=== PATIENT | male | born 1935 | race Caucasian/White ===

== ENCOUNTER → 2017-03-18 | Outpatient (CLI) | payer MEDICARE, BC ==
[2017-03-18 09:12] LABS: EKG EKG PERFORMED
[2017-03-18 09:54] LABS: CH 28.7; CHCM 31.6; HCT 39.9 % (39.0-53.0); HDW 2.51; HGB 12.4 gm/dL (13.0-17.5); MCH 28.4 pg (25.0-35.0); MCHC 31.1 g/dL (31.0-37.0); MCV 91.3 fL (80.0-100.0); Mean Platelet Volume 7.6; RBC 4.37 m/uL (4.30-5.90); RDW 15.1 % (11.5-15.5); WBC 6.7 k/uL (3.8-10.6)
[2017-03-18 09:58] LABS: Partial Thromboplastin Time 24.2 sec (22.0-30.0); Prothrombin Time 10.6 sec (9.0-12.0)
[2017-03-18 10:01] LABS: Appearance,Urine Clear (Clear); Bilirubin,Urine Negative (Negative); Glucose,Urine (UA) Negative (Negative); Ketones,Urine Negative (Negative); Leukocyte Esterase,Urine Negative (Negative); Mucus,Urine Rare /hpf; Nitrite,Urine Negative (Negative); PH, Urine 5.5 (5.0-8.0); Particle Count 5987; Protein,Urine 2+ (Negative); Specific Gravity,Urine 1.018 (1.001-1.035); Squamous Epithelial Cell,Urine <1 /hpf (0-4); UA Billing (MACRO vs. MICRO) MICRO; WBC,Urine 1 /hpf (0-5)
[2017-03-18 10:20] LABS: ALT 30 U/L (21-72); AST 15 U/L (17-59); Alkaline Phosphatase 70 U/L (38-126); Anion Gap 9 mmol/L; Blood Urea Nitrogen 27 mg/dL (9-20); Calcium 9.2 mg/dL (8.4-10.2); Carbon Dioxide 25 mmol/L (22-30); Chloride 107 mmol/L (98-107); Glucose 95 mg/dL (74-99); Non-African American GFR(MDRD) 38 (>60 ml/min/1.73 sqM); Potassium 4.6 mmol/L (3.5-5.1); Sodium 141 mmol/L (137-145); Total Bilirubin 0.5 mg/dL (0.2-1.3); Total Protein 6.8 g/dL (6.3-8.2)
== END | disposition home or self-care (01) ==
LOC: LABPAT 08:49
PROVIDERS: ATTEND Orthopaedic Surgery
DX: Z01.810 Encounter for preprocedural cardiovascular examination (principal); R94.31 Abnormal electrocardiogram [ECG] [EKG]; Z79.01 Long term (current) use of anticoagulants; Z01.812 Encounter for preprocedural laboratory examination
CPT/HCPCS: 36415; 80053; 81001; 85027; 85610; 85730; 87070; 93005

== ENCOUNTER → 2017-07-03 | Outpatient (CLI) | payer MEDICARE, BC ==
--- NOTE | 2017-07-03 11:25 | MR ---
EXAMINATION TYPE: MR angio neck wo/w con DATE OF EXAM: 07/03/2017 COMPARISON: CT angiogram neck dated 11/30/2015 HISTORY: Occlusion and stenosis of left carotid artery CONTRAST: Standard multiplanar, multisequence MRI departmental protocol utilizing 10 mL intravenous Gadavist ga dolinium contrast. FINDINGS: Great vessels are patent proximally. Within the right common carotid artery proximal to the aortic bulb there is focal stenosis of approximately 50% measuring over 8 mm in length likely due to calcific atheromatous plaquing. The right carotid bulb is patent. External carotid artery also appea rs patent. There is also focal stenosis of the right internal carotid artery with a eccentric plaque narrowing the caliber approximately 60% just distal to the carotid bulb extending over 6 mm in length . The remainder of the right internal carotid artery is patent and unremarkable without hemodynamical ly significant stenosis. The left common carotid artery is unremarkable. The left carotid bulb is also within normal limits. T here is redemonstration of a focal area of stenosis of the left internal carotid artery just distal t o the carotid bifurcation with luminal narrowing of approximately 70-75%, increased from the prior CT A with visual diameter stenosis just over 50% and computer analysis of 65 at that time. This extends over a short segment length of approximately 3 mm. No other focal areas of hemodynamically significan t stenosis are seen within the left internal carotid artery. Vertebral arteries are patent with left vertebral artery dominance. No focal appearance of aneurysmal outpouching is seen within any of the visualized vascular structures. No evidence of occlusion. IMPRESSION: 1. Progression in stenosis of the left internal carotid artery just distal to the bifurcation in suleman torres to the prior exam of 11/30/2015 now approximately 70-75% and previously 50-65%. This is a for a short segment of approximately 3 mm. 2. Stenosis of the right common carotid artery just proximal to the carotid bulb of approximately 50% measuring 8 mm in length. 3. Additional short segment of the right internal carotid artery just distal to the carotid bulb of a pproximately 60% extending over 6 mm in length.
== END | disposition home or self-care (01) ==
LOC: RADMRIMAIN 09:23
PROVIDERS: ATTEND Thoracic Surgery (Cardiothoracic Vascular Surgery)
DX: I65.23 Occlusion and stenosis of bilateral carotid arteries (principal)
CPT/HCPCS: 82565; 70549; A9581

== ENCOUNTER → 2017-07-21 | Outpatient (CLI) | payer MEDICARE, BC ==
[2017-07-21 14:23] LABS: Potassium 4.3 mmol/L (3.5-5.1)
[2017-07-21 14:30] LABS: Basophils # (A) 0.1 k/uL (0-0.2); Basophils % (A) 1 %; Eosinophils # (A) 0.4 k/uL (0-0.7); Eosinophils % (A) 5 %; HCT 37.9 % (39.0-53.0); HGB 12.8 gm/dL (13.0-17.5); Lymphocytes # (A) 1.5 k/uL (1.0-4.8); Lymphocytes % (A) 23 %; MCH 28.6 pg (25.0-35.0); MCHC 33.7 g/dL (31.0-37.0); MCV 84.8 fL (80.0-100.0); Mean Platelet Volume 6.8; Monocytes # (A) 0.4 k/uL (0-1.0); Monocytes % (A) 5 %; Neutrophils # (A) 4.2 k/uL (1.3-7.7); Neutrophils % (A) 64 %; Platelet Count 305 k/uL (150-450); RBC 4.48 m/uL (4.30-5.90); WBC 6.6 k/uL (3.8-10.6)
[2017-07-21 14:35] LABS: Partial Thromboplastin Time 23.8 sec (22.0-30.0); Prothrombin Time 9.9 sec (9.0-12.0)
[2017-07-21 15:08] LABS: Amorphous Sediment,Urine Rare /hpf; Appearance,Urine Clear (Clear); Bilirubin,Urine Negative (Negative); Blood,Urine Negative (Negative); Color,Urine Light Yellow; Glucose,Urine (UA) Trace (Negative); Hyaline Casts,Urine 9 /lpf (0-2); Ketones,Urine Negative (Negative); Leukocyte Esterase,Urine Negative (Negative); Mucus,Urine Rare /hpf; Nitrite,Urine Negative (Negative); Protein,Urine 1+ (Negative); RBC,Urine <1 /hpf (0-5); Specific Gravity,Urine 1.012 (1.001-1.035); Squamous Epithelial Cell,Urine <1 /hpf (0-4); Urobilinogen,Urine <2.0 mg/dL (<2.0)
== END | disposition home or self-care (01) ==
LOC: LABPAT 13:49
PROVIDERS: ATTEND Surgery
DX: Z01.812 Encounter for preprocedural laboratory examination (principal); I65.22 Occlusion and stenosis of left carotid artery
CPT/HCPCS: 80051; 81001; 82565; 82947; 84520; 85025; 85610; 85730; 86850; 86900; 86901

== ENCOUNTER 2017-07-28 07:45 | Inpatient (IN) | payer MEDICARE, BC ==
[2017-07-23 13:24] VITALS: BMI 29.4
[~2017-07-28 07:45] MED LIST: DEXAMETHASONE SOD PHOSPHATE 10 MG/ML 1 ML VIAL IV ONE; LACTATED RINGERS 1,000 ML IV SCH; MIDAZOLAM 2 MG/2 ML VIAL IV PRN; NITROGLYCERIN-D5W PMX 50 MG in DEXTROSE/WATER 1 250ML.BAG IV ONE; ONDANSETRON 4 MG/2 ML VIAL IVP ONE; PHENYLEPHRINE 40 MG in SODIUM CHLORIDE 0.9% 250 ML IV ONE; ceFAZolin IN SWFI 2 GM/20 ML SYRINGE IVP ONE; fentaNYL (PF) 50 MCG/ML 2 ML AMP IV PRN
[2017-07-28] MEDS ORDERED: LIDOCAINE 1% 20 ML VIAL (10MG/ML) FOR IV START INTRADERMA ONE (08:30)
[2017-07-28 08:32] LABS: Glucose,Whole Blood 115 mg/dL (75-99)
[2017-07-28] MEDS ORDERED: PHENYLEPHRINE-0.9% NACL SYG 1 MG/10 ML SYRINGE ONE (11:09)
[2017-07-28] MEDS ORDERED: fentaNYL (PF) 50 MCG/ML 2 ML AMP ONE (11:09)
[2017-07-28] MEDS ORDERED: HEPARIN SODIUM,PORCINE 10,000 UNIT/ML 1 ML VIAL ONE (11:09)
[2017-07-28] MEDS ORDERED: PROTAMINE SULFATE 10 MG/ML 5 ML VIAL IV ONE (11:09)
[2017-07-28] MEDS ORDERED: ROCURONIUM BROMIDE 10 MG/ML 10 ML VIAL IV ONE (11:09)
[2017-07-28] MEDS ORDERED: NEOSTIGMINE 1 MG/ML 10 ML VIAL ONE (11:09)
[2017-07-28] MEDS ORDERED: PROPOFOL 10 MG/ML 20 ML VIAL IV ONE (11:09)
[2017-07-28] MEDS ORDERED: SUCCINYLCHOLINE CHLORIDE 100 MG/5 ML SYR IV ONE (11:09)
[2017-07-28] MEDS ORDERED: GLYCOPYRROLATE 0.2 MG/ML 2 ML VIAL ONE (11:09)
[2017-07-28] MEDS ORDERED: ePHEDrine SULFATE/0.9% NACL/PF 50 MG/5 ML SYRINGE IV ONE (11:09)
[2017-07-28] MEDS ORDERED: MIDAZOLAM 2 MG/2 ML VIAL ONE (11:09)
--- NOTE | 2017-07-28 11:12 | P.HPIHPCON ---
History of Present Illness H&P Date: 07/28/17 Chief Complaint: Left carotid stenosis 81-year-old gentleman who presented to my office with left internal carotid artery stenosis greater than 80%. He underwent MRI which demonstrated significant stenosis 75-80%. He has no complaints of lateralizing symptoms such as weakness, vision changes or speech issues. He has had a right carotid endarterectomy in the past. We discussed possible options of open carotid endarterectomy versus TCAR procedure and stenting which he decided for the open endarterectomy. He presents today for elective repair. He denies any fevers, chills, chest pain or shortness of breath. Consent for Procedure: I have explained the operation/procedure to the patient, including the risks, benefits, side effects, alternative therapies (including not receiving the proposed treatment or service), the likelihood of the patient achieving his/her goals, and potential recuperation problems for the procedure/sedation/analgesia , as well as any blood products, if indicated. I also explained to the patient the risks, benefits and side effects of the alternatives, as well as the risks related to not receiving the proposed procedure, care, treatment, or services. - Constitutional Constitutional: Reports as per HPI - EENT Eyes: denies blurred vision, denies decreased vision Ears, nose, mouth and throat: Denies dental pain, Denies dysphagia, Denies headache, Denies hoarseness - Cardiovascular Cardiovascular: Denies chest pain, Denies dyspnea on exertion - Respiratory Respiratory: Denies congestion, Denies cough with sputum, Denies dyspnea - Gastrointestinal Gastrointestinal: Denies abdominal pain - Musculoskeletal Musculoskeletal: Denies arm numbness/tingling, Denies gait dysfunction - Integumentary Integumentary: Denies pruritus, Denies rash - Neurological Neurological: Denies aphasia, Denies ataxia, Denies double vision, Denies numbness, Denies paralysis, Denies weakness - Endocrine Endocrine: Denies cold intolerance, Denies excessive thirst - Hematologic/Lymphatic Hematologic/Lymphatic: Denies easy bleeding, Denies easy bruising Past Medical History Past Medical History: Diabetes Mellitus, GERD/Reflux, Hyperlipidemia, Hypertension, Osteoarthritis (OA), Thyroid Disorder, Vascular Disorder Additional Past Medical History / Comment(s): HX OF ESOPHAGEAL STRICTURE WITH DILATION, NIDDM, PVD, colitis, blockage to lt carotid History of Any Multi-Drug Resistant Organisms: None Reported Past Surgical History: Hernia Repair, Joint Replacement Additional Past Surgical History / Comment(s): Lap bebeto fundoplasty, TUMOR RIGHT LUNG REMOVED, RIGHT CAROTID ENDARTERECTOMY, gastric surgery for rupture ( pt does not know what ruptured), EGD, colonoscopy, CATARACTS., trk 04/07/17 Past Anesthesia/Blood Transfusion Reactions: No Reported Reaction, Motion Sickness Smoking Status: Former smoker - Past Family History Brother(s) Family Medical History: Diabetes Mellitus Sister(s) Family Medical History: Cancer Mother Family Medical History: Congestive Heart Failure (CHF), Coronary Artery Disease (CAD) Additional Family Medical History / Comment(s): Mother of CHF at age 83 yrs. Father Family Medical History: Myocardial Infarction (MT) Additional Family Medical History / Comment(s): Father of MT at age 60 yrs Medications and Allergies Home Medications Medication Instructions Recorded Confirmed Type Aspirin 81 mg PO HS 12/15/14 07/23/17 History Levothyroxine Sodium [Synthroid] 50 mcg PO DAILY 12/15/14 07/23/17 History Verapamil HCl [Verapamil ER] 240 mg PO DAILY 12/15/14 07/23/17 History glipiZIDE [Glucotrol] 10 mg PO AC-BRKFST 12/15/14 07/23/17 History metFORMIN HCL 1,000 mg PO BID 12/15/14 07/23/17 History Losartan Potassium [Cozaar] 100 mg PO DAILY 04/02/17 07/23/17 History Atorvastatin [Lipitor] 20 mg PO HS 07/23/17 07/23/17 History Allergies Allergy/AdvReac Type Severity Reaction Status Date / Time Iodinated Contrast- Oral and Allergy Mild Rash/Hives Verified 07/28/17 08:13 IV Dye [Iodinated Contrast Media - IV Dye] Surgical - Exam Vital Signs Temp Pulse Resp BP Pulse Ox 98 F 74 16 178/75 95 07/28/17 08:16 07/28/17 08:16 07/28/17 08:16 07/28/17 08:16 07/28/17 08:16 - General well developed, well nourished, no distress - Eyes PERRL, normal ocular movement - Neck no masses, trachea midline - Respiratory normal expansion, normal respiratory effort - Cardiovascular Rhythm: regular - Abdomen Abdomen: soft, non tender - Integumentary no rash - Neurologic normal coordination, normal sensation - Psychiatric oriented to time, oriented to person, oriented to place Results - Labs Abnormal Lab Results - Last 24 Hours (Table) 07/28/17 Range/Units 08:23 POC Glucose (mg/dL) 115 H (75-99) mg/dL Assessment and Plan (1) Carotid stenosis, left Current Visit: Yes Status: Acute Priority: High Code(s): I65.22 - OCCLUSION AND STENOSIS OF LEFT CAROTID ARTERY SNOMED Code(s): 545223383786023 Plan: To the OR for left carotid endarterectomy Time with Patient: Less than 30
[2017-07-28] MEDS ORDERED: LACTATED RINGERS 1,000 ML IV ONE (11:40)
[2017-07-28] MEDS ORDERED: GELATIN SPONGE,ABSORB (LARGE) 1 EACH SPONGE TOPICAL ONE (11:48)
[2017-07-28] MEDS ORDERED: THROMBIN (BOVINE) 5,000 UNIT VIAL TOPICAL ONE (11:49)
[2017-07-28] MEDS ORDERED: HYDROcodone/APAP 5-325MG 1 EACH TAB PO PRN (13:41)
[2017-07-28] MEDS ORDERED: ACETAMINOPHEN TAB 325 MG TAB PO PRN (13:41)
[2017-07-28] MEDS ORDERED: BENZOCAINE/MENTHOL LOZENG 1 EACH LOZENGE MUCOUS MEM PRN (13:41)
[2017-07-28] MEDS ORDERED: MORPHINE SULF 5MG/10ML VL IVP PRN (13:41)
[2017-07-28] MEDS ORDERED: TEMAZEPAM 15 MG CAP PO PRN (13:41)
[2017-07-28] MEDS ORDERED: TRIMETHOBENZAMIDE 100 MG/ML 2 ML VIAL IM PRN (13:41)
[2017-07-28] MEDS ORDERED: MAG HYDROX/AL HYDROX/SIMETH 30 ML CUP PO PRN (13:41)
[2017-07-28 14:29] LABS: Glucose,Whole Blood 100 mg/dL (75-99)
[2017-07-28 15:05] LABS: Glucose,Whole Blood 96 mg/dL (75-99)
[2017-07-28 15:25] LABS: Basophils % (A) 1 %; Eosinophils # (A) 0.3 k/uL (0-0.7); Eosinophils % (A) 3 %; HCT 31.5 % (39.0-53.0); HGB 10.2 gm/dL (13.0-17.5); Lymphocytes # (A) 1.5 k/uL (1.0-4.8); Lymphocytes % (A) 19 %; MCH 27.6 pg (25.0-35.0); MCHC 32.5 g/dL (31.0-37.0); Mean Platelet Volume 6.9; Monocytes # (A) 0.3 k/uL (0-1.0); Monocytes % (A) 4 %; Neutrophils # (A) 5.7 k/uL (1.3-7.7); Neutrophils % (A) 72 %; Platelet Count 259 k/uL (150-450); RBC 3.71 m/uL (4.30-5.90); RDW 14.2 % (11.5-15.5)
[2017-07-28] MEDS: LACTATED RINGERS 1,000 ML IV SCH (16:09)
[2017-07-28 17:26] LABS: Glucose,Whole Blood 88 mg/dL (75-99)
[2017-07-28 20:12] LABS: Glucose,Whole Blood 131 mg/dL (75-99)
[2017-07-28] MEDS: ASPIRIN 81 MG PO SCH (20:42)
[2017-07-28] MEDS: HEPARIN SODIUM,PORCINE 5,000 UNIT/ML 1 ML VIAL SQ SCH (20:42)
[2017-07-28] MEDS: ATORVASTATIN 20 MG TAB PO SCH (20:42)
[2017-07-29 04:43] LABS: Calcium 8.3 mg/dL (8.4-10.2); Potassium 4.8 mmol/L (3.5-5.1)
[2017-07-29 04:54] LABS: HCT 29.7 % (39.0-53.0); HGB 9.6 gm/dL (13.0-17.5); MCH 27.5 pg (25.0-35.0); MCHC 32.3 g/dL (31.0-37.0); MCV 85.3 fL (80.0-100.0); Mean Platelet Volume 7.2; Platelet Count 229 k/uL (150-450); RBC 3.49 m/uL (4.30-5.90); RDW 14.6 % (11.5-15.5); WBC 7.7 k/uL (3.8-10.6)
--- NOTE | 2017-07-29 06:28 | P.OP ---
Date of Procedure: 07/28/17 Preoperative Diagnosis: Asymptomatic Left internal carotid artery stenosis Postoperative Diagnosis: Same Procedure(s) Performed: Left carotid endarterectomy with patch angioplasty Implants: bovine pericardial patch Anesthesia: XU Surgeon: Tao Newell Estimated Blood Loss (ml): 100 Urine output (ml): 300 Pathology: other (carotid plaque) Condition: stable Disposition: ICU Indications for Procedure: 81 year-old male who presented to the office with increased left internal carotid artery stenosis on ultrasound measuring approximatley >80%. He denies any lateralizing symptoms such as weakness, speech issues or vision changes. He underwent a neck MRA which demonstrated 75% stenosis of the left ICA. He presents today for elective carotid endarterectomy. Operative Findings: high bifurcation with dense focal plaque just past the bifurcation extending into the internal carotid artery. Description of Procedure: After written and informed consent the patient was brought to the operative suite and laid in a beach chair position. The area of his left neck and chest was prepped and draped in the usual sterile fashion after appropriate anesthetic was administered per anesthesia. Time out was performed in normal fashion with all parties in agreement. Antibiotics were given prior to an incision. An oblique incision was created just anterior to the SCM and dissection was carried down through the platysma to the carotid sheath. Upon dissection the facial vein was encountered and suture ligated in usual fashion. The common, internal and external carotid arteries were dissected in a circumferential manner and controlled with vessel loops. The bifurcation was noted to be high as well as the vagus nerve was overlying the carotid artery. Meticulous dissection was carried around the nerve and the nerve was mobilized away from the artery to allow for better visualization of the artery. The internal carotid artery was tortuous and dove deep making dissection of the distal aspect challenging. Once dissection was completed the patient was administered heparin and followed with serial ACTs for appropriate dosing. The common, internal and external carotid arteries were then clamped and arteriotomy with 11 -blade scalpel was performed and extended with Sal-Hernandez scissors. The plaque was dense at the bifurcation with a posterior tongue of plaque extending to the internal carotid artery. Back bleeding was assesed and stump pressures were >80 mmHg and therefore a shunt was not used. Endarterectomy was then performed in usual fashion with eversion of the external carotid plaque and feathered endpoint. The artery was then irrigated with heparinized saline and all free debris was removed. The distal plaque was tacked with 7-0 prolene suture and patch angioplasty was performed with 6-0 prolene in a running fashion with a bovine pericardial patch. Prior to the last sutures being placed control was released from the internal carotid demonstrating brisk backbleeding. This was reclamped and forward flushing from the common carotid was performed. Final suture was secured and the external carotid was released to allow any free debris to be flushed into the external system. The internal carotid was then released. The flow was assessed with doppler demonstrating good multiphasic flow in the internal carotid artery. A pulse was also felt distal to the patch. The area was copiously irrigated with antibiotic solution. A 10-F drain was placed and secured with nylon suture. The incision was then closed in a multilayer fashion. The skin was cleansed and dressings placed. The patient was awoken in the operating room and was moving all extremities to command. He was extubated and sent to the PACU for recovery.
[2017-07-29] MEDS: LACTATED RINGERS 1,000 ML IV SCH (06:31)
[2017-07-29] MEDS: LEVOTHYROXINE 50 MCG TAB PO SCH (06:31)
[2017-07-29 07:02] LABS: Glucose,Whole Blood 128 mg/dL (75-99)
[2017-07-29] MEDS: glipiZIDE 10 MG TAB PO SCH (08:04)
[2017-07-29] MEDS: HEPARIN SODIUM,PORCINE 5,000 UNIT/ML 1 ML VIAL SQ SCH ×2 (08:04→20:24)
--- NOTE | 2017-07-29 10:28 | P.PN ---
Subjective Progress Note Date: 07/29/17 Principal diagnosis: Left carotid stenosis. Previous medical history of right carotid endarterectomy , diabetes, hyperlipidemia, hypertension, hypothyroid, previous tobacco dependence. POD #1 left carotid endarterectomy. Patient is currently sitting up in the chair in no acute distress eating breakfast. Denies pain. Arterial line and Rogel catheter discontinued this morning. MICHAEL drain discontinued. Objective - Vital Signs Vital signs: Vital Signs Temp 97.8 F 07/29/17 08:00 Pulse 63 07/29/17 09:00 Resp 18 07/29/17 09:00 BP 97/39 07/29/17 09:00 Pulse Ox 96 07/29/17 09:00 Intake & Output 07/28/17 07/29/17 07/29/17 18:59 06:59 18:59 Intake Total 1980 1040 Output Total 565 395 Balance 1415 645 Weight 98.7 kg 100.7 kg Intake: IV 1740 1040 Lactated Ringers 1,000 ml 240 1040 @ 80 mls/hr IV .[id number] DONNIE Rx#:[id number] Oral 240 Output: Drainage 30 Left Neck 30 Urine 465 365 Estimated Blood Loss 100 Other: Voiding Method Indwelling Catheter Indwelling Catheter Urinal ABP, PAP, CO, CI - Last Documented Arterial Blood Pressure 116/36 - Constitutional General appearance: Present: cooperative, no acute distress, obese - Respiratory Details: Lungs sounds clear bilaterally. Respirations even, nonlabored. Currently on room air with oxygen saturation 94%. - Cardiovascular Details: S1, S2 present. Regular rate and rhythm, sinus rhythm on telemetry. Palpable peripheral pulses bilaterally. No edema present. No calf pain or tenderness noted. SCDs present. - Gastrointestinal Gastrointestinal Comment(s): Abdomen soft, nontender, nondistended. Active bowel sounds 4 quadrants. Tolerating diet. - Genitourinary Genitourinary Comment(s): Rogel discontinue this morning. Due to void. - Integumentary Integumentary Comment(s): Skin is warm and dry with evidence of good perfusion. Left neck incision well approximated. Dressing applied once MICHAEL was removed. - Neurologic Neurologic: Present: CNII-XII intact - Musculoskeletal Musculoskeletal: Present: gait normal, strength equal bilaterally - Psychiatric Psychiatric: Present: A&O x's 3, appropriate affect, intact judgment & insight - Allied health notes Allied health notes reviewed: nursing - Labs CBC & Chem 7: 07/29/17 04:15 07/29/17 04:15 Labs: Abnormal Lab Results - Last 24 Hours (Table) 07/28/17 07/28/17 07/28/17 Range/Units 14:27 15:18 20:10 RBC 3.71 L (4.30-5.90) m/uL Hgb 10.2 L (13.0-17.5) gm/dL Hct 31.5 L (39.0-53.0) % BUN (9-20) mg/dL Creatinine (0.66-1.25) mg/dL Glucose (74-99) mg/dL POC Glucose (mg/dL) 100 H 131 H (75-99) mg/dL Calcium (8.4-10.2) mg/dL 07/29/17 07/29/17 07/29/17 Range/Units 04:15 04:15 07:00 RBC 3.49 L (4.30-5.90) m/uL Hgb 9.6 L (13.0-17.5) gm/dL Hct 29.7 L (39.0-53.0) % BUN 30 H (9-20) mg/dL Creatinine 1.80 H (0.66-1.25) mg/dL Glucose 124 H (74-99) mg/dL POC Glucose (mg/dL) 128 H (75-99) mg/dL Calcium 8.3 L (8.4-10.2) mg/dL Assessment and Plan (1) Hyperlipidemia Current Visit: Yes Status: Chronic Code(s): E78.5 - HYPERLIPIDEMIA, UNSPECIFIED SNOMED Code(s): 60539341 (2) History of hypertension Current Visit: Yes Status: Chronic Code(s): Z86.79 - PERSONAL HISTORY OF OTHER DISEASES OF THE CIRCULATORY SYSTEM SNOMED Code(s): 424684561 (3) History of right-sided carotid endarterectomy Current Visit: No Status: Resolved Code(s): Z98.890 - OTHER SPECIFIED POSTPROCEDURAL STATES SNOMED Code(s): 721825329 (4) Carotid stenosis, left Current Visit: Yes Status: Chronic Priority: High Code(s): I65.22 - OCCLUSION AND STENOSIS OF LEFT CAROTID ARTERY SNOMED Code(s): 833293504161676 (5) Diabetes Current Visit: Yes Status: Chronic Code(s): E11.9 - TYPE 2 DIABETES MELLITUS WITHOUT COMPLICATIONS SNOMED Code(s): 52335135 Plan: The patient's vital signs are stable, he is tolerating oral intake, pain is well -controlled, and he is ambulating in the room. He is due to void. His incision is well approximated and the MICHAEL drain has been removed. He likely will be discharged later on today on his home medication. Follow-up appointments will be scheduled. Time with Patient: Greater than 30
[2017-07-29] MEDS: LOSARTAN 50 MG TAB PO SCH (10:37)
[2017-07-29] MEDS: VERAPAMIL SR 240 MG TABLET.ER PO SCH (10:38)
[2017-07-29 12:21] LABS: Glucose,Whole Blood 172 mg/dL (75-99)
--- NOTE | 2017-07-29 16:42 | CONS ---
CONSULTATION CHIEF COMPLAINT: Carotid occlusive disease. HISTORY OF PRESENT ILLNESS: This is another admission for this 81-year-old white male who has ASCVD, coronary artery disease, hypertension and diabetes. He is in for an elective left carotid endarterectomy. REVIEW OF SYSTEMS: He has had no recent amaurosis fugax, neurologic deficits, chest pain, shortness of breath, cough, hemoptysis, abdominal pain, nausea, vomiting, melena, hematochezia, jaundice, etc. Past medical history, family history, and personal and social histories are all otherwise unremarkable and unchanged from his recent admitting discharge summary. ALLERGIES: TONO INHIBITORS. MEDICATIONS: 1. Atorvastatin 20 mg. 2. Losartan 100 mg. 3. Levothyroxine 0.05 mg. 4. Aspirin 81 mg. 5. Glipizide 10 mg once a day. 6. Verapamil 240 once a day. 7. Metformin 1 gram twice a day. He does not smoke or drink. The remainder of his history is unremarkable. . PHYSICAL EXAMINATION: Blood pressure 130/62 with a pulse 76, respirations of 18, and he is afebrile. In general he appeared to be well developed, well nourished, in no acute no acute distress. Skin color is normal. Skin is warm and dry. The lymph nodes are not enlarged. Head, ears, eyes, nose, mouth and throat are normal. Neck veins are not distended. Thyroid is not enlarged. Chest is clear. Cardiac exam is normal. Abdomen is soft, nontender. Extremities are normal. Neurologically he is intact. IMPRESSION: 1. Left carotid occlusive disease. 2. ASCVD. 3. Hypertension. 4. Type 2 [id number] diabetes mellitus. RECOMMENDATIONS: None. He is cleared for surgery. MMODL / IJN: [id number] /
[2017-07-29 17:19] LABS: Glucose,Whole Blood 93 mg/dL (75-99)
[2017-07-29] MEDS: ATORVASTATIN 20 MG TAB PO SCH (20:24)
[2017-07-29] MEDS: ASPIRIN 81 MG PO SCH (20:24)
[2017-07-29 20:28] LABS: Glucose,Whole Blood 167 mg/dL (75-99)
[2017-07-30 06:58] VITALS: TEMP 98.4
[2017-07-30 07:13] LABS: Glucose,Whole Blood 99 mg/dL (75-99)
[2017-07-30] MEDS: HEPARIN SODIUM,PORCINE 5,000 UNIT/ML 1 ML VIAL SQ SCH (08:21)
[2017-07-30] MEDS: LOSARTAN 50 MG TAB PO SCH (08:21)
[2017-07-30] MEDS: glipiZIDE 10 MG TAB PO SCH (08:21)
[2017-07-30] MEDS: VERAPAMIL SR 240 MG TABLET.ER PO SCH (08:21)
[2017-07-30] MEDS: LEVOTHYROXINE 50 MCG TAB PO SCH (08:21)
--- NOTE | 2017-07-30 09:30 | P.PN ---
Subjective Progress Note Date: 07/30/17 Principal diagnosis: Left carotid stenosis. Previous medical history of right carotid endarterectomy , diabetes, hyperlipidemia, hypertension, hypothyroid, previous tobacco dependence. POD #2 left carotid endarterectomy with patch angioplasty. Objective - Vital Signs Vital signs: Vital Signs Temp 98.4 F 07/30/17 08:00 Pulse 66 07/30/17 08:00 Resp 23 07/30/17 08:00 BP 133/59 07/30/17 08:00 Pulse Ox 98 07/30/17 08:00 Intake & Output 07/29/17 07/30/17 07/30/17 18:59 06:59 18:59 Intake Total 240 Output Total 150 450 Balance -150 -210 Weight 99 kg Intake: IV 0 Lactated Ringers 1,000 ml 0 @ 80 mls/hr IV .[id number] DONNIE Rx#:[id number] Oral 240 Output: Urine 150 450 Other: Voiding Method Urinal Urinal ABP, PAP, CO, CI - Last Documented Arterial Blood Pressure 116/36 - Constitutional General appearance: Present: cooperative, no acute distress, obese - EENT ENT: Present: hearing grossly normal - Neck Details: Neck is supple, no JVD, no lymphadenopathy. Left neck incision clean and dry and approximated. No drainage or redness present. - Respiratory Details: Lung sounds essentially clear throughout. Respirations are symmetrical and nonlabored. Oxygen saturation are 98% on room air. - Cardiovascular Details: Regular rhythm and rate. S1 and S2 present, negative for S3, gallop or murmur. Bedside telemetry showing normal sinus rhythm with occasional PACs heart rate 71. No edema present. Knee-high sequential compression devices in place to his bilateral lower extremities. - Gastrointestinal Gastrointestinal Comment(s): Abdomen is soft, nontender and nondistended. Active bowel sounds all 4 abdominal quadrants. Tolerating oral intake. Passing flatus. - Genitourinary Genitourinary Comment(s): Adequate urine output. Clear ray urine. - Integumentary Integumentary Comment(s): Skin is warm and dry. No clubbing or cyanosis present. Left neck incision clean dry and well approximated. No drainage or redness present. - Neurologic Neurologic: Present: CNII-XII intact - Musculoskeletal Musculoskeletal: Present: gait normal, strength equal bilaterally - Psychiatric Psychiatric: Present: A&O x's 3, appropriate affect, intact judgment & insight - Allied health notes Allied health notes reviewed: nursing - Labs CBC & Chem 7: 07/29/17 04:15 07/29/17 04:15 Labs: Abnormal Lab Results - Last 24 Hours (Table) 07/29/17 07/29/17 Range/Units 12:19 20:25 POC Glucose (mg/dL) 172 H 167 H (75-99) mg/dL Assessment and Plan (1) Hypothyroid Current Visit: Yes Status: Acute Code(s): E03.9 - HYPOTHYROIDISM, UNSPECIFIED SNOMED Code(s): 95661460 (2) Carotid stenosis, left Current Visit: Yes Status: Chronic Priority: High Code(s): I65.22 - OCCLUSION AND STENOSIS OF LEFT CAROTID ARTERY SNOMED Code(s): 991227398294032 (3) Diabetes Current Visit: Yes Status: Chronic Code(s): E11.9 - TYPE 2 DIABETES MELLITUS WITHOUT COMPLICATIONS SNOMED Code(s): 03631442 (4) History of hypertension Current Visit: Yes Status: Chronic Code(s): Z86.79 - PERSONAL HISTORY OF OTHER DISEASES OF THE CIRCULATORY SYSTEM SNOMED Code(s): 101254542 (5) Hyperlipidemia Current Visit: Yes Status: Chronic Code(s): E78.5 - HYPERLIPIDEMIA, UNSPECIFIED SNOMED Code(s): 09571059 (6) History of right-sided carotid endarterectomy Current Visit: No Status: Resolved Code(s): Z98.890 - OTHER SPECIFIED POSTPROCEDURAL STATES SNOMED Code(s): 796645631 Plan: 1. Pain control per when necessary orders. 2. Increase activity as tolerated, out of bed for all meals. 3. Continue home medications as scheduled. 4. More recommendations to follow as patient progresses in his care. Anticipate discharge home within the next 24 hours. Time with Patient: Greater than 30
[2017-07-30 11:46] LABS: Glucose,Whole Blood 101 mg/dL (75-99)
[2017-07-30 11:53] VITALS: BP 118/62; PULSE 62; RESP 22
--- NOTE | 2017-07-30 14:07 | PN ---
PROGRESS NOTE CHIEF COMPLAINT: Carotid occlusive disease. HISTORY OF PRESENT ILLNESS: This gentleman is doing fine. He has no headaches, neurologic problems, change in vision, weakness on either side, etc. PHYSICAL EXAM: Neurologically, he is intact. Chest is clear. Cardiac exam is normal. Abdomen is soft, nontender. Dressing is dry. IMPRESSION: Status post carotid endarterectomy. PLAN: Probably home today. MMODL / IJN: [id number] /
--- NOTE | 2017-08-01 07:57 | P.DS ---
Providers Date of admission: 07/28/17 07:45 Expected date of discharge: 07/30/17 Attending physician: Tao Newell DO Consults: 07/28/17 13:41 Consult Physician Routine Consulting Provider: Matthieu Daugherty Consult Reason/Comments: surgical management Do you want consulting provider notified?: Already Contacted 07/28/17 20:26 Consult Physician Routine Consulting Provider: Michael Oneil Consult Reason/Comments: medical management Do you want consulting provider notified?: Yes Primary care physician: Michael Oneil - Discharge Diagnosis(es) (1) Carotid stenosis, left Status: Chronic Priority: High Hospital Course: 81 year old male who presented with left carotid artery stenosis went for an elective left carotid endarterectomy without incident and was admitted to the ICU for continued monitoring. He did develop some episodes of hypotension over the next 24 hours which were treated with fluids and ultimately resolved. He was tolerating a diet, pain was well controlled, he was ambulating and was stable for discharge by all parties on 07/30 at which time he was discharged home. Procedures: left carotid endarterectomy with patch Patient Condition at Discharge: Good Plan - Discharge Summary Discharge Rx Participant: No New Discharge Prescriptions: New Acetaminophen Tab [Tylenol] 650 mg PO Q4HR PRN tab PRN Reason: Mild Pain Continue Aspirin 81 mg PO HS metFORMIN HCL 1,000 mg PO BID glipiZIDE [Glucotrol] 10 mg PO AC-BRKFST Verapamil HCl [Verapamil ER] 240 mg PO DAILY Levothyroxine Sodium [Synthroid] 50 mcg PO DAILY Losartan Potassium [Cozaar] 100 mg PO DAILY Atorvastatin [Lipitor] 20 mg PO HS Discharge Medication List Aspirin 81 mg PO HS 12/15/14 [History] Levothyroxine Sodium [Synthroid] 50 mcg PO DAILY 12/15/14 [History] Verapamil HCl [Verapamil ER] 240 mg PO DAILY 12/15/14 [History] glipiZIDE [Glucotrol] 10 mg PO AC-BRKFST 12/15/14 [History] metFORMIN HCL 1,000 mg PO BID 12/15/14 [History] Losartan Potassium [Cozaar] 100 mg PO DAILY 04/02/17 [History] Atorvastatin [Lipitor] 20 mg PO HS 07/23/17 [History] Acetaminophen Tab [Tylenol] 650 mg PO Q4HR PRN tab 07/30/17 [Rx] Follow up Appointment(s)/Referral(s): Michael Oneil MD [Primary Care Provider] - 1 Week Tao Newell DO [STAFF PHYSICIAN] - 08/04/17 1:15 pm Patient Instructions/Handouts: Carotid Endarterectomy (DC) Discharge Disposition: HOME SELF-CARE
--- NOTE | 2017-08-07 10:11 | CDI ---
Last Revision, March 2017 Documentation Clarification Form Date: 08/07/17 From: Janine Ardon Admit Date: 07/28/2017 7:45:00 AM Patient Name: Saud Farley Visit Number: [id number] Discharge Date: 07/30/17 ATTENTION: The Clinical Documentation Specialists (CDI) and [facility] Coding Staff appreciate your assistance in clarifying documentation. Please respond to the clarification below the line at the bottom and electronically sign. The CDI & [facility] Coding staff will review the response and follow-up if needed. Please note: Queries are made part of the Legal Health Record. If you have any questions, please contact the author of this message via ITS. Dr. Tao Newell Hypotension is documented in the post op notes. Clinical Indicators: developed some episodes of hypotension over the next 24 hours which were treated with fluids and ultimately resolved Treatment: given 300ml bolus fluids and hypotension resolved In your professional opinion, can you please specify the etiology of the hypotension if known? Hypotension Chronic Hypotension Postoperative Hypotension Hypotension due to anesthia Other Condition, please specify Unable to determine Temporary Postoperative hypotension due to severe carotid stenosis treatment MTDD
== END 2017-07-30 13:43 | disposition home or self-care (01) | DRG 39 ==
LOC: 2ORMAIN 07:45 → 6ICU 13:48
PROVIDERS: ADMIT Surgery; ATTEND Surgery
PROC: 03CL0ZZ Extirpation of Matter from Left Internal Carotid Artery, Open Approach (ICD-10-PCS; principal; 2017-07-29)
PROC: 03UL0KZ Supplement Left Internal Carotid Artery with Nonautologous Tissue Substitute, Open Approach (ICD-10-PCS; 2017-07-29)
DX: I65.22 Occlusion and stenosis of left carotid artery (principal); E11.51 Type 2 diabetes mellitus with diabetic peripheral angiopathy without gangrene; E03.9 Hypothyroidism, unspecified; K21.9 Gastro-esophageal reflux disease without esophagitis; E78.5 Hyperlipidemia, unspecified; M19.90 Unspecified osteoarthritis, unspecified site; I95.81 Postprocedural hypotension; E66.9 Obesity, unspecified; I10 Essential (primary) hypertension; I25.10 Atherosclerotic heart disease of native coronary artery without angina pectoris; Z96.651 Presence of right artificial knee joint; Z98.49 Cataract extraction status, unspecified eye; Z87.891 Personal history of nicotine dependence; Z87.19 Personal history of other diseases of the digestive system; Z83.3 Family history of diabetes mellitus; Z82.49 Family history of ischemic heart disease and other diseases of the circulatory system; Z79.82 Long term (current) use of aspirin; Z79.899 Other long term (current) drug therapy; Z79.84 Long term (current) use of oral hypoglycemic drugs; Z91.041 Radiographic dye allergy status; Z88.8 Allergy status to other drugs, medicaments and biological substances; Z79.890 Hormone replacement therapy; Z68.31 Body mass index [BMI] 31.0-31.9, adult
CPT/HCPCS: 80048; 85025; 85027; 88304; 88311

== ENCOUNTER → 2018-01-19 | Outpatient (CLI) | payer MEDICARE, BC ==
[2018-01-19 12:17] LABS: Appearance,Urine Clear (Clear); Bilirubin,Urine Negative (Negative); Blood,Urine Negative (Negative); Color,Urine Yellow; Glucose,Urine (UA) Negative (Negative); Ketones,Urine Negative (Negative); Leukocyte Esterase,Urine Negative (Negative); Mucus,Urine Rare /hpf; Nitrite,Urine Negative (Negative); Protein,Urine 2+ (Negative); Specific Gravity,Urine 1.019 (1.001-1.035); Urobilinogen,Urine <2.0 mg/dL (<2.0); WBC,Urine 1 /hpf (0-5)
[2018-01-19 12:23] LABS: HCT 38.2 % (39.0-53.0); HGB 12.5 gm/dL (13.0-17.5); MCH 28.8 pg (25.0-35.0); MCHC 32.7 g/dL (31.0-37.0); MCV 88.2 fL (80.0-100.0); Mean Platelet Volume 7.1; Platelet Count 244 k/uL (150-450); RBC 4.33 m/uL (4.30-5.90); WBC 6.4 k/uL (3.8-10.6)
[2018-01-19 12:33] LABS: Partial Thromboplastin Time 23.6 sec (22.0-30.0); Prothrombin Time 10.2 sec (9.0-12.0)
[2018-01-19 12:55] LABS: Albumin 3.7 g/dL (3.5-5.0); Calcium 9.1 mg/dL (8.4-10.2); Potassium 5.2 mmol/L (3.5-5.1); Total Bilirubin 0.6 mg/dL (0.2-1.3); Total Protein 6.8 g/dL (6.3-8.2)
== END | disposition home or self-care (01) ==
LOC: LABPAT 10:54
PROVIDERS: ATTEND Orthopaedic Surgery
DX: Z01.812 Encounter for preprocedural laboratory examination (principal); Z79.01 Long term (current) use of anticoagulants
CPT/HCPCS: 36415; 80053; 81001; 85027; 85610; 85730; 87070

== ENCOUNTER 2018-02-08 05:55 | Inpatient (IN) | payer MEDICARE, BC ==
[2018-01-29 12:01] VITALS: BMI 29.4
[~2018-02-08 05:55] MED LIST changes: +ACETAMINOPHEN TAB 500 MG TAB PO ONE; -DEXAMETHASONE SOD PHOSPHATE 10 MG/ML 1 ML VIAL IV ONE; -LACTATED RINGERS 1,000 ML IV SCH; +MELOXICAM 7.5 MG TAB PO ONE; -MIDAZOLAM 2 MG/2 ML VIAL IV PRN; -NITROGLYCERIN-D5W PMX 50 MG in DEXTROSE/WATER 1 250ML.BAG IV ONE; -ONDANSETRON 4 MG/2 ML VIAL IVP ONE; -PHENYLEPHRINE 40 MG in SODIUM CHLORIDE 0.9% 250 ML IV ONE; +TRANEXAMIC ACID 1,000 MG in SODIUM CHLORIDE 0.9% 50 ML IVPB ONE; -fentaNYL (PF) 50 MCG/ML 2 ML AMP IV PRN
[2018-02-08] MEDS ORDERED: ROPIVACAINE 246.25 MG, EPINEPHrine 0.5 MG, KETOROLAC 30 MG, cloNIDine HCL/PF 80 MCG, WA... MISCELLANE ONE ×5 (06:10)
[2018-02-08] MEDS ORDERED: LIDOCAINE 1% 20 ML VIAL (10MG/ML) FOR IV START INTRADERMA PRN (06:10)
[2018-02-08] MEDS ORDERED: ONDANSETRON 4 MG/2 ML VIAL IVP ONE (06:10)
[2018-02-08] MEDS ORDERED: HYDROmorphone 0.5 MG/0.5 ML SYRINGE IVP PRN (06:10)
[2018-02-08] MEDS: LACTATED RINGERS 1,000 ML IV SCH (06:35)
[2018-02-08] MEDS ORDERED: MIDAZOLAM 2 MG/2 ML VIAL IV ONE (06:53)
[2018-02-08 06:54] LABS: Glucose,Whole Blood 98 mg/dL (75-99)
[2018-02-08] MEDS ORDERED: DEXAMETHASONE SOD PHOSPHATE 10 MG/ML 1 ML VIAL IV ONE (07:10)
[2018-02-08] MEDS ORDERED: BISACODYL 10 MG SUPP RECTAL PRN (07:15)
[2018-02-08] MEDS ORDERED: NA PHOS,M-B/NA PHOS,DI-BA 133 ML ENEMA RECTAL PRN (07:15)
[2018-02-08] MEDS ORDERED: MAGNESIUM HYDROXIDE 2,400 MG/10 ML CUP PO PRN (07:15)
[2018-02-08] MEDS ORDERED: NALOXONE 0.4 MG/ML 1 ML VIAL IV PRN (07:15)
[2018-02-08] MEDS ORDERED: ONDANSETRON 4 MG/2 ML VIAL IVP PRN (07:15)
[2018-02-08] MEDS ORDERED: HYDROcodone/APAP 5-325MG 1 EACH TAB PO PRN ×2 (07:15)
[2018-02-08] MEDS ORDERED: DIAZEPAM 5 MG TAB PO PRN (07:15)
[2018-02-08] MEDS ORDERED: HYDROmorphone 1 MG/ML 1 ML SYRINGE IVP PRN ×3 (07:15)
[2018-02-08] MEDS ORDERED: MIDAZOLAM 2 MG/2 ML VIAL ONE ×2 (07:25→15:14)
[2018-02-08] MEDS ORDERED: SODIUM CHLORIDE 0.9% 100 ML BAG ONE ×2 (07:25→15:14)
[2018-02-08] MEDS ORDERED: TRANEXAMIC ACID 1,000 MG/10 ML VIAL ONE ×2 (07:25→15:14)
[2018-02-08] MEDS ORDERED: ceFAZolin 3,000 MG in SODIUM CHLORIDE 0.9% IRRIGATIO 3,000 ML IRRIGATION ONE (07:55)
--- NOTE | 2018-02-08 08:54 | P.OP ---
Date of Procedure: 02/08/18 Preoperative Diagnosis: Severe osteoarthritis left knee Postoperative Diagnosis: Severe osteoarthritis left knee Procedure(s) Performed: Left total knee arthroplasty Implants: Hernandez and Nephew Oxinium femoral component size 6, left Hernandez & Nephew Haily II left nonporous tibial baseplate size 6 Hernandez & Nephew size 11 mm Legion XLPE high flexion articular insert, size 5-6 Hernandez & Nephew Haily II resurfacing patellar component, 35 mm All components were cemented using Carolyn bone cement.. The articulation is Oxinium on polyethylene. Anesthesia: spinal Surgeon: Deni Ramirez Music Therapy Specialist #1: Archana Siddiqui Estimated Blood Loss (ml): 25 Pathology: other (Bone and cartilage) Condition: stable Disposition: PACU Indications for Procedure: After failure of conservative treatment we discussed the surgical and nonsurgical treatment options at length. Patient wishes to proceed with a total knee arthroplasty. Complications specific to this procedure were discussed at length, including but not limited to infection, bleeding, stiffness , and nerve injury. Patient is aware of all these complications and informed consent was obtained Operative Findings: The operative findings are consistent with severe osteoarthritis of the left knee Description of Procedure: Patient was seen in the preoperative area consent was reviewed and operative site was marked with a skin marker. An adductor canal pain catheter was placed by anesthesia in the preoperative area. Patient was then brought to the operating room and given preoperative antibiotics intravenously. A spinal anesthetic was administered by the anesthesia department. A tourniquet was placed on the upper thigh and the lower extremity was prepped and draped in usual sterile fashion. A gram of transexamic acid was given. A universal timeout was then performed which confirmed the patient's name, surgical site, ALLERGIES, and consent. The lower extremity was then exsanguinated and tourniquet was inflated to 250 mmHg. A standard and anterior midline approach to the knee was performed. The skin and subcutaneous tissue was dissected down to the patellar tendon. A medial parapatellar arthrotomy was then performed. The knee was then extended, the patellar was everted, and the knee was again flexed. Anterior horns of both menisci were excised, and a release was performed to the posterior medial aspect of the knee. On gross visual inspection, there was complete loss of articular cartilage in the medial and patellofemoral joint spaces. There was also significant cartilage damage in the lateral compartment. There were multiple periarticular osteophytes which were then removed with a Ronguer. The femoral canal was then opened with the appropriate drill, and the intramedullary femoral cutting guide was then placed and set for 4 of valgus. The distal femoral cutting block was then pinned in place, and the distal femur was then cut. The cutting block was then removed and the cut was checked for flatness. Next, the sizing guide was then placed and set for 3 external rotation based off of the epicondylar axis and Whitesides line. After the femur was sized, the appropriate 4-in-1 cutting block was then pinned in place. The anterior condyles were cut without notching. The posterior and chamfer cuts were performed while protecting the collateral ligaments. The cutting block was then removed, and the femoral canal was plugged with autologous bone. Attention was then directed to the tibia. The remaining ACL was removed with a Ronguer, and the tibia was then gently subluxed forward with a large bent knee retractor. Any remaining menisci was excised. The posterior lateral corner was cauterized in order to cauterize the lateral geniculate artery. The extra medullary tibial cutting guide was then placed, set for the appropriate rotation , slope, and depth of resection. The proximal tibia cutting guide was then pinned in place. Proximal tibia was then cut and sized. Next trials were then placed with the appropriate-sized insert. The knee was able to fully extend and flex to 130 and was stable throughout all range of motion. The knee was then extended, patella everted. Patella was then measured, and then using an osteotomy guide, the patella was cut at the appropriate level. The patella was then measured and drilled and the patella trial was then placed. The knee was then taken through range of motion with the patella trial and the patella tracked normally. The knee was then extended patella trial was then removed and the patella was everted. Knee was then flexed and lug holes were drilled through the femoral trial and the femoral trial was then removed. The tibial was then exposed, and the tibial broach guide was then pinned in place after it was set for the appropriate rotation to allow for the most coverage without overhang. The tibia was then reamed and broached. The cut surfaces of bone were then irrigated with pulsatile lavage. The posterior structures were injected with the ropivacaine solution. The knee was also irrigated with Irrisept solution. The components were then opened, the cement was mixed, and the components were then cemented in place. The cement was allowed to harden with the knee in full extension. While the cement was hardening, the remaining soft tissues were then injected with a ropivacaine solution, which consisted of 246.25 mg of ropivacaine, 0.5 mg of epinephrine, 30 mg of Toradol, 80 g of clonidine, and 48.45 mL of sterile water, for a total of 100 mL of fluid injected. After the cemented hardened. The tourniquet was released, and hemostasis was obtained. A second gram of transexamic acid was given. The knee was again irrigated. The knee was again taken through range of motion and found to be stable throughout all range of motion of 0-130 , and the patella tracked normally. The fascia was then closed with #2 strata fix suture. The subcutaneous tissue was closed with 3-0 Vicryl and 3-0 strata fix. Dermabond glue was used for the skin and placed with the knee in flexion. The patient was placed in a sterile silver dressing. Patient was then transferred to recovery room in stable condition. The assistant import manager LAURA Dang was required due the complexity surgery and the need for a skilled surgical coordinator. She assisted in positioning, draping, retraction, and closure of the wound.
--- NOTE | 2018-02-08 09:35 | P.ONQ ---
Anesthesiology Proc Note - PNB - Peripheral Nerve Block Performed Left Adductor Canal Infusion Time Out Performed: Yes Procedure Start Time: 06:54 Procedure Stop Time: 07:05 Indication: Acute Post-Operative Pain, Requested by physician Sedation Type: Sedate with meaningful contact maintained Preparation: Sterile Dressing Position: Supine Catheter: Indwelling Needle Types: On-Q Needle Size: 50mm (2") Needle Gauge: 21 Technique: Ultrasound (ropi .5% 20cc) Blood Aspirated: No Pain Paresthesia on Injection Noted: No Resistance on Injection: Normal Events: Uneventful and Well Tolerated
[2018-02-08 09:48] LABS: Glucose,Whole Blood 105 mg/dL (75-99)
--- NOTE | 2018-02-08 09:50 | XR ---
Limited left knee HISTORY: Status post left knee arthroplasty 2 views of the left knee No comparisons Patient is status post left knee arthroplasty. There is anatomic alignment. Lucency in the soft tissu es is compatible with postop state. Basilar calcifications noted incidentally. IMPRESSION: Orthopedic follow-up.
[2018-02-08] MEDS ORDERED: ROPIVACAINE 1,100 MG, SODIUM CHLORIDE 0.9% 500 ML 330 ML MISCELLANE PRN ×2 (11:00)
[2018-02-08] MEDS ORDERED: PHENYLEPHRINE-0.9% NACL SYG 1 MG/10 ML SYRINGE ONE (15:14)
[2018-02-08] MEDS ORDERED: ePHEDrine SULFATE/0.9% NACL/PF 50 MG/5 ML SYRINGE IV ONE (15:14)
[2018-02-08] MEDS ORDERED: PROPOFOL 10 MG/ML 20 ML VIAL IV ONE (15:14)
[2018-02-08] MEDS ORDERED: fentaNYL (PF) 50 MCG/ML 2 ML AMP ONE (15:14)
[2018-02-08] MEDS: ceFAZolin IN SWFI 2 GM/20 ML SYRINGE IVP SCH (16:14)
[2018-02-08] MEDS: SODIUM CHLORIDE 0.9% 1,000 ML IV SCH ×2 (16:18→22:44)
[2018-02-08] MEDS: LEVOTHYROXINE 50 MCG TAB PO SCH ×2 (16:18→22:24)
[2018-02-08 17:08] LABS: Calcium 8.5 mg/dL (8.4-10.2); Potassium 4.9 mmol/L (3.5-5.1)
[2018-02-08 17:11] LABS: Glucose,Whole Blood 418 mg/dL (75-99)
[2018-02-08 17:14] LABS: Glucose,Whole Blood 397 mg/dL (75-99)
--- NOTE | 2018-02-08 17:15 | P.CONS ---
History of Present Illness - Reason for Consult Recommendations regarding diabetic medications - History of Present Illness Patient is a very pleasant 82-year-old gentleman admitted for elective left knee arthroplasty successfully underwent surgery did pass gas did not move his bowels yet. Patient is a diabetic is on metformin and glipizide from his previous labs it appears like patient has chronic kidney disease stage III with creatinine baseline around 1.7 because of which I repeated a basic metabolic profile his creatinine is around that patient will not be a candidate for metformin which will be discontinued will hold off glipizide as well patient will be started on sliding scale insulin for now. She denied any fever chills nausea vomiting abdominal pain. Review of Systems REVIEW OF SYSTEMS: CONSTITUTIONAL: No fever, no malaise, no fatigue. HEENT: No recent visual problems or hearing problems. Denied any sore throat. CARDIOVASCULAR: No chest pain, orthopnea, PND, no palpitations, no syncope. PULMONARY: No shortness of breath, no cough, no hemoptysis. GASTROINTESTINAL: No diarrhea, no nausea, no vomiting, no abdominal pain. Normoactive bowel sounds. NEUROLOGICAL: No headaches, no weakness, no numbness. HEMATOLOGICAL: Denies any bleeding or petechiae. GENITOURINARY: Denies any burning micturition, frequency, or urgency. MUSCULOSKELETAL/RHEUMATOLOGICAL: Denies any joint pain, swelling, or any muscle pain. ENDOCRINE: Denies any polyuria or polydipsia. The rest of the 14-point review of systems is negative. Past Medical History Past Medical History: Diabetes Mellitus, GERD/Reflux, Hyperlipidemia, Hypertension, Osteoarthritis (OA), Thyroid Disorder, Vascular Disorder Additional Past Medical History / Comment(s): HX OF ESOPHAGEAL STRICTURE WITH DILATION, NIDDM, PVD, colitis, blockage to lt carotid History of Any Multi-Drug Resistant Organisms: None Reported Past Surgical History: Hernia Repair, Joint Replacement Additional Past Surgical History / Comment(s): Lap bebeto fundoplasty, TUMOR RIGHT LUNG REMOVED, RIGHT CAROTID ENDARTERECTOMY, gastric surgery for rupture ( pt does not know what ruptured), EGD, colonoscopy, CATARACTS., trk 04/07/17 Past Anesthesia/Blood Transfusion Reactions: No Reported Reaction, Motion Sickness Smoking Status: Former smoker - Past Family History Brother(s) Family Medical History: Diabetes Mellitus Sister(s) Family Medical History: Cancer Mother Family Medical History: Congestive Heart Failure (CHF), Coronary Artery Disease (CAD) Additional Family Medical History / Comment(s): Mother of CHF at age 83 yrs. Father Family Medical History: Myocardial Infarction (GA) Additional Family Medical History / Comment(s): Father of GA at age 60 yrs Medications and Allergies Home Medications Medication Instructions Recorded Confirmed Type Aspirin 81 mg PO HS 12/15/14 02/08/18 History Levothyroxine Sodium [Synthroid] 50 mcg PO QAM 12/15/14 02/08/18 History Verapamil HCl [Verapamil ER] 240 mg PO QAM 12/15/14 02/08/18 History glipiZIDE [Glucotrol] 10 mg PO AC-BRKFST 12/15/14 02/08/18 History metFORMIN HCL 1,000 mg PO HS 12/15/14 02/08/18 History Atorvastatin [Lipitor] 20 mg PO HS 07/23/17 02/08/18 History Allergies Allergy/AdvReac Type Severity Reaction Status Date / Time Iodinated Contrast- Oral and Allergy Mild Rash/Hives Verified 02/08/18 14:53 IV Dye [Iodinated Contrast Media - IV Dye] Physical Exam Vitals: Vital Signs Temp Pulse Pulse Resp BP Pulse Ox 02/08/18 14:51 97.6 F 72 16 142/64 94 L 02/08/18 14:38 97.6 F 72 16 142/64 94 L 02/08/18 14:00 69 16 139/69 97 02/08/18 13:00 70 16 140/70 97 02/08/18 12:30 70 16 144/75 95 02/08/18 12:00 63 16 136/65 95 02/08/18 11:30 61 16 111/65 95 02/08/18 11:00 60 16 136/64 96 02/08/18 10:30 64 16 119/59 98 02/08/18 10:15 59 L 16 119/54 98 02/08/18 10:00 60 16 114/54 98 02/08/18 09:45 59 L 16 124/59 98 02/08/18 09:30 57 L 16 123/59 98 02/08/18 09:15 96.8 F L 63 16 140/63 97 02/08/18 07:10 68 16 99 02/08/18 06:45 170/68 02/08/18 06:35 98.0 F 71 16 179/81 94 L Intake and Output 02/08/18 02/08/18 02/08/18 06:59 14:59 22:59 Intake Total 200 901 Output Total 25 Balance 200 876 Intake: IV 200 901 Output: Estimated Blood Loss 25 Other: Weight 92.986 kg PHYSICAL EXAMINATION: GENERAL: The patient is alert and oriented x3, not in any acute distress. Well developed, well nourished. HEENT: Pupils are round and equally reacting to light. EOMI. No scleral icterus. No conjunctival pallor. Normocephalic, atraumatic. No pharyngeal erythema. No thyromegaly. CARDIOVASCULAR: S1 and S2 present. No murmurs, rubs, or gallops. PULMONARY: Chest is clear to auscultation, no wheezing or crackles. ABDOMEN: Soft, nontender, nondistended, normoactive bowel sounds. No palpable organomegaly. MUSCULOSKELETAL: Deferred to orthopedic surgery EXTREMITIES: No cyanosis, clubbing, or pedal edema. NEUROLOGICAL: Gross neurological examination did not reveal any focal deficits. SKIN: No rashes. Results CBC & Chem 7: 02/08/18 16:45 Labs: Abnormal Lab Results - Last 24 Hours (Table) 02/08/18 02/08/18 Range/Units 09:45 16:45 BUN 30 H (9-20) mg/dL Creatinine 1.69 H (0.66-1.25) mg/dL Glucose 377 H (74-99) mg/dL POC Glucose (mg/dL) 105 H (75-99) mg/dL Assessment and Plan Plan: -Left knee arthroplasty postoperative day 0: Due to prophylaxis as per primary service, avoid opiates, benzodiazepines barbiturates and anticholinergic medications considering his age which leads to toxic encephalopathy confusion and altered mental status. 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
[2018-02-08] MEDS: INSULIN ASPART 100 UNIT/ML 1 ML 10 ML VIAL SQ SCH ×2 (18:26→22:40)
[2018-02-08 20:33] LABS: Glucose,Whole Blood 393 mg/dL (75-99)
[2018-02-08] MEDS ORDERED: ATORVASTATIN 20 MG TAB PO SCH (21:00)
[2018-02-08] MEDS ORDERED: SENNOSIDES-DOCUSATE SODIUM 1 EACH TAB PO SCH (21:00)
[2018-02-08 22:34] LABS: Glucose,Whole Blood 285 mg/dL (75-99)
[2018-02-08] MEDS: ASPIRIN 325 MG TAB PO SCH (22:35)
[2018-02-09] MEDS: ceFAZolin IN SWFI 2 GM/20 ML SYRINGE IVP SCH (00:52)
[2018-02-09 02:19] VITALS: RESP 16; TEMP 97.7
[2018-02-09] MEDS: LACTATED RINGERS 1,000 ML IV SCH (05:33)
--- NOTE | 2018-02-09 07:22 | P.PN ---
Progress Note - Text Progress Note Date: 02/09/18 The patient is doing well status post total knee replacement. Pain is well controlled by a combination of local anesthetic infusion through the adductor canal catheter and oral analgesics. There are no signs of infection around the catheter skin entry site. The local anesthetic infusion will be continued as per protocol.
[2018-02-09 07:40] LABS: Glucose,Whole Blood 215 mg/dL (75-99)
[2018-02-09] MEDS ORDERED: VERAPAMIL SR 240 MG TABLET.ER PO SCH (09:00)
[2018-02-09] MEDS ORDERED: MELOXICAM 7.5 MG TAB PO SCH (09:00)
[2018-02-09] MEDS: INSULIN ASPART 100 UNIT/ML 1 ML 10 ML VIAL SQ SCH ×2 (09:14→13:20)
[2018-02-09] MEDS: LEVOTHYROXINE 50 MCG TAB PO SCH (09:15)
[2018-02-09] MEDS: ASPIRIN 325 MG TAB PO SCH (09:15)
--- NOTE | 2018-02-09 09:32 | P.DS ---
Providers Date of admission: 02/08/18 05:55 Expected date of discharge: 02/09/18 Attending physician: Deni Ramirez Consults: 02/08/18 07:15 Consult Physician Routine Consulting Provider: Michael Oneil Consult Reason/Comments: medical management Do you want consulting provider notified?: Yes Primary care physician: Michael Oneil - Discharge Diagnosis(es) (1) Primary osteoarthritis of left knee Current Visit: Yes Status: Acute (2) S/P total knee arthroplasty Current Visit: No Status: Acute Hospital Course: This is a 82-year-old male with known history of degenerative arthritis of the left knee. The patient presents for evaluation. After discussion and consideration patient elects to proceed with total knee arthroplasty. The patient is seen preoperatively by Dr. Ramirez and medically cleared for surgery by their primary care physician. Patient is admitted to [facility] on 02/08/2018 for total knee arthroplasty. The procedures performed without complication or sequelae. The patient is doing well postoperatively. Labs and vital signs are stable on day of discharge. On day of discharge patient's knee incision is healing well. There is minimal erythema. There is no drainage noted at this time. There is minimal soft tissue swelling to the knee. Patient has full foot and ankle motion without difficulty or pain. Neurovascular status to the left lower extremity is intact. Patient is discharged home in good condition. Please see med rec for accurate list of home medications. Plan - Discharge Summary Discharge Rx Participant: No New Discharge Prescriptions: New Aspirin 325 mg PO BID #60 tab HYDROcodone/APAP 5-325MG [[place] 5-325] 1 - 2 tab PO Q4-6H PRN #84 tab PRN Reason: Pain Sennosides [Senokot] 1 tab PO BID #60 tablet No Action Aspirin 81 mg PO HS metFORMIN HCL 1,000 mg PO HS glipiZIDE [Glucotrol] 10 mg PO AC-BRKFST Verapamil HCl [Verapamil ER] 240 mg PO QAM Levothyroxine Sodium [Synthroid] 50 mcg PO QAM Atorvastatin [Lipitor] 20 mg PO HS Discharge Medication List Aspirin 81 mg PO HS 12/15/14 [History] Levothyroxine Sodium [Synthroid] 50 mcg PO QAM 12/15/14 [History] Verapamil HCl [Verapamil ER] 240 mg PO QAM 12/15/14 [History] glipiZIDE [Glucotrol] 10 mg PO AC-BRKFST 12/15/14 [History] metFORMIN HCL 1,000 mg PO HS 12/15/14 [History] Atorvastatin [Lipitor] 20 mg PO HS 07/23/17 [History] Aspirin 325 mg PO BID #60 tab 02/09/18 [Rx] HYDROcodone/APAP 5-325MG [[place] 5-325] 1 - 2 tab PO Q4-6H PRN #84 tab 02/09/18 [ Rx] Sennosides [Senokot] 1 tab PO BID #60 tablet 02/09/18 [Rx] Follow up Appointment(s)/Referral(s): Deni Ramirez DO [Doctor of Osteopathic Medicine] - 2 Weeks Ambulatory/Diagnostic Orders: Continuous Passive Motion (CPM) Machine [DME.AMB1] Time Frame: 3 Weeks, Location : None Selected Activity/Diet/Wound Care/Special Instructions: Weightbearing as tolerated with a walker CPM 5-6h daily Leave dressing intact. May be removed by home care nurse in 10 days. May shower with dressing on. Please call [facility] with any questions or concerns,
[2018-02-09 10:07] LABS: Basophils % (A) 0 %; Eosinophils % (A) 0 %; HCT 34.5 % (39.0-53.0); HGB 10.9 gm/dL (13.0-17.5); Hypochromasia Moderate; Lymphocytes # (A) 0.6 k/uL (1.0-4.8); Lymphocytes % (A) 6 %; MCH 28.7 pg (25.0-35.0); MCHC 31.5 g/dL (31.0-37.0); MCV 91.1 fL (80.0-100.0); Mean Platelet Volume 7.4; Monocytes # (A) 0.6 k/uL (0-1.0); Monocytes % (A) 5 %; Neutrophils # (A) 10.3 k/uL (1.3-7.7); Neutrophils % (A) 88 %; Platelet Count 248 k/uL (150-450); RBC 3.79 m/uL (4.30-5.90); RDW 14.7 % (11.5-15.5); WBC 11.7 k/uL (3.8-10.6)
[2018-02-09 11:26] VITALS: BP 162/68; PULSE 68
[2018-02-09 11:39] LABS: Glucose,Whole Blood 271 mg/dL (75-99)
--- NOTE | 2018-02-09 16:04 | P.PN ---
Subjective Patient is clinically doing well is being discharged today patient has mild leukocytosis secondary to surgery reactive in nature. Patient's creatinine is 1.69, metformin will be discontinued I asked her to take glipizide 10 mg the morning and 5 mg in the evening patient normally takes 10 daily. Patient's blood sugars are bit elevated as to check the blood sugars twice a day at home. Patient is medically stable to be discharged. Constitutional: Denied any fatigue denied any fever. Cardio vascular: denied any chest pain, palpitations Gastrointestinal denied any nausea vomiting Pulmonary: Denied any shortness of breath cough Neurologic denied any new focal deficits Objective - Vital Signs Vital signs: Vital Signs Temp 97.7 F 02/09/18 07:00 Pulse 68 02/09/18 07:00 Resp 16 02/09/18 07:00 BP 162/68 02/09/18 07:00 Pulse Ox 98 02/09/18 07:00 Intake & Output 02/08/18 02/09/18 02/09/18 18:59 06:59 18:59 Intake Total 901 780 220 Output Total 25 Balance 876 780 220 Weight 92.986 kg Intake: IV 901 Intake, IV Titration 780 Amount Sodium Chloride 0.9% 1, 780 000 ml @ 65 mls/hr IV . [id number] DONNIE Rx#:[id number] Oral 220 Output: Estimated Blood Loss 25 Other: # Voids 2 - Exam PHYSICAL EXAMINATION: GENERAL: The patient is alert and oriented x3, not in any acute distress. Well developed, well nourished. HEENT: Pupils are round and equally reacting to light. EOMI. No scleral icterus. No conjunctival pallor. Normocephalic, atraumatic. No pharyngeal erythema. No thyromegaly. CARDIOVASCULAR: S1 and S2 present. No murmurs, rubs, or gallops. PULMONARY: Chest is clear to auscultation, no wheezing or crackles. ABDOMEN: Soft, nontender, nondistended, normoactive bowel sounds. No palpable organomegaly. MUSCULOSKELETAL: Deferred to orthopedic surgery EXTREMITIES: No cyanosis, clubbing, or pedal edema. NEUROLOGICAL: Gross neurological examination did not reveal any focal deficits. SKIN: No rashes. - Labs CBC & Chem 7: 02/09/18 08:41 02/08/18 16:45 Labs: Abnormal Lab Results - Last 24 Hours (Table) 02/08/18 02/08/18 02/08/18 Range/Units 16:45 17:08 17:11 WBC (3.8-10.6) k/uL RBC (4.30-5.90) m/uL Hgb (13.0-17.5) gm/dL Hct (39.0-53.0) % Neutrophils # (1.3-7.7) k/uL Lymphocytes # (1.0-4.8) k/uL BUN 30 H (9-20) mg/dL Creatinine 1.69 H (0.66-1.25) mg/dL Glucose 377 H (74-99) mg/dL POC Glucose (mg/dL) 418 H 397 H (75-99) mg/dL 02/08/18 02/08/18 02/09/18 Range/Units 20:30 22:30 07:39 WBC (3.8-10.6) k/uL RBC (4.30-5.90) m/uL Hgb (13.0-17.5) gm/dL Hct (39.0-53.0) % Neutrophils # (1.3-7.7) k/uL Lymphocytes # (1.0-4.8) k/uL BUN (9-20) mg/dL Creatinine (0.66-1.25) mg/dL Glucose (74-99) mg/dL POC Glucose (mg/dL) 393 H 285 H 215 H (75-99) mg/dL 02/09/18 02/09/18 Range/Units 08:41 11:37 WBC 11.7 H (3.8-10.6) k/uL RBC 3.79 L (4.30-5.90) m/uL Hgb 10.9 L (13.0-17.5) gm/dL Hct 34.5 L (39.0-53.0) % Neutrophils # 10.3 H (1.3-7.7) k/uL Lymphocytes # 0.6 L (1.0-4.8) k/uL BUN (9-20) mg/dL Creatinine (0.66-1.25) mg/dL Glucose (74-99) mg/dL POC Glucose (mg/dL) 271 H (75-99) mg/dL Assessment and Plan Plan: -Left knee arthroplasty postoperative day 1:DVT prophylaxis as per primary service -Type 2 diabetes mellitus: Further management as mentioned above -Chronic kidney disease stage III: Secondary to diabetic nephropathy -Hypertension -Hyperlipidemia -Hypothyroidism -Peripheral vascular disease
== END 2018-02-09 13:30 | disposition home health service (06) | DRG 470 ==
LOC: 2ORMAIN 05:55 → 4SSUR 13:59
PROVIDERS: ADMIT Orthopaedic Surgery; ATTEND Orthopaedic Surgery
PROC: 0SRD069 Replacement of Left Knee Joint with Oxidized Zirconium on Polyethylene Synthetic Substitute, Cemented, Open Approach (ICD-10-PCS; principal; 2018-02-08 07:30)
DX: M17.12 Unilateral primary osteoarthritis, left knee (principal); D72.829 Elevated white blood cell count, unspecified; E11.22 Type 2 diabetes mellitus with diabetic chronic kidney disease; E11.51 Type 2 diabetes mellitus with diabetic peripheral angiopathy without gangrene; E78.5 Hyperlipidemia, unspecified; I12.9 Hypertensive chronic kidney disease with stage 1 through stage 4 chronic kidney disease, or unspecified chronic kidney disease; K21.9 Gastro-esophageal reflux disease without esophagitis; N18.3 Chronic kidney disease, stage 3 (moderate); E07.9 Disorder of thyroid, unspecified; H91.90 Unspecified hearing loss, unspecified ear; R26.9 Unspecified abnormalities of gait and mobility; Z79.84 Long term (current) use of oral hypoglycemic drugs; Z79.890 Hormone replacement therapy; Z79.899 Other long term (current) drug therapy; Z79.82 Long term (current) use of aspirin; Z91.041 Radiographic dye allergy status; Z98.42 Cataract extraction status, left eye; Z98.41 Cataract extraction status, right eye; Z96.1 Presence of intraocular lens; Z87.891 Personal history of nicotine dependence; Z82.49 Family history of ischemic heart disease and other diseases of the circulatory system; Z83.3 Family history of diabetes mellitus; Z80.9 Family history of malignant neoplasm, unspecified
CPT/HCPCS: 80048; 85025; 88300

== ENCOUNTER → 2018-04-05 | Outpatient (CLI) | payer MEDICARE, BC ==
[2018-04-05 17:07] LABS: HCT 39.8 % (39.0-53.0); HGB 12.4 gm/dL (13.0-17.5); Hypochromasia Slight; MCH 27.2 pg (25.0-35.0); MCHC 31.1 g/dL (31.0-37.0); MCV 87.5 fL (80.0-100.0); Mean Platelet Volume 6.4; Platelet Count 293 k/uL (150-450); RBC 4.54 m/uL (4.30-5.90); RDW 14.1 % (11.5-15.5); WBC 6.5 k/uL (3.8-10.6)
[2018-04-05 17:11] LABS: Appearance,Urine Clear (Clear); Bilirubin,Urine Negative (Negative); Blood,Urine Negative (Negative); Color,Urine Yellow; Glucose,Urine (UA) 4+ (Negative); Ketones,Urine Negative (Negative); Leukocyte Esterase,Urine Negative (Negative); Mucus,Urine Rare /hpf; Nitrite,Urine Negative (Negative); Protein,Urine 1+ (Negative); RBC,Urine <1 /hpf (0-5); Specific Gravity,Urine 1.014 (1.001-1.035); WBC,Urine 1 /hpf (0-5)
[2018-04-06 05:27] LABS: Parathyroid Hormone Intact 69.8 pg/mL (14.0-72.0)
[2018-04-06 05:47] LABS: Iron Saturation 18.43 (15.00-50.00)
[2018-04-06 05:54] LABS: Vitamin D 25 Hydroxy 37.8 ng/mL (30.0-100.0)
[2018-04-06 06:24] LABS: Albumin 3.5 g/dL (3.80-4.90); Albumin/Globulin Ratio 1.59 (1.20-2.10); Anion Gap 5.4 mmol/L (4.00-12.00); Calcium 8.6 mg/dL (8.7-10.3); Carbon Dioxide 27.6 mmol/L (21.6-31.8); Globulin 2.2 g/dL (2.1-3.7); Phosphorus 3.2 mg/dL (2.4-5.1); Potassium 4.7 mmol/L (3.5-5.5); Total Bilirubin 0.5 mg/dL (0.3-1.2); Total Protein 5.7 g/dL (6.2-8.2); Uric Acid 5.4 mg/dL (3.7-8.7)
== END | disposition home or self-care (01) ==
LOC: LABWHC1 16:25
PROVIDERS: ATTEND Internal Medicine Nephrology
DX: N18.3 Chronic kidney disease, stage 3 (moderate) (principal)
CPT/HCPCS: 36415; 80053; 81001; 82043; 82306; 82570; 82728; 83540; 83550; 83735; 83970; 84100; 84550; 85027

== ENCOUNTER 2018-09-04 11:50 | Inpatient (IN) | payer MEDICARE, BC ==
[2018-09-04 11:56] VITALS: RESP 18
--- NOTE | 2018-09-04 12:45 | ED ---
Abdominal Pain HPI - General Source: patient Mode of arrival: wheelchair Limitations: no limitations <Eric Almaraz - Last Filed: 09/04/18 13:24> <Sylvester Harmon - Last Filed: 09/04/18 16:10> - General Chief Complaint: Abdominal Pain Stated Complaint: abdominal pain Time Seen by Provider: 09/04/18 12:09 - History of Present Illness Initial Comments: Patient is a 82-year-old male with history of diverticulitis is presenting to the emergency department with abdominal pain. Patient states pain started yesterday and has not improved. Patient reports a colicky pain that is located in the umbilical and epigastric region of the abdomen. Patient states that he was able to eat food and drink fluids without affecting the pain in any manner. Patient states that after the pain started he has not been able to pass stool. Patient denies any blood in his stool appears to the pain. Patient reports that he feels bloated and is not able to pass gas. Patient also states that he is nauseous and has tried vomiting but has been unsuccessful. Patient denies fever, chest pain, chest tightness, shortness of breath or headache. Patient denies dysuria, increased frequency or urgency. Patient has not taken anything for the pain. (Eric Almaraz) - Related Data Home Medications Medication Instructions Recorded Confirmed Aspirin 81 mg PO HS 12/15/14 02/08/18 Levothyroxine Sodium [Synthroid] 50 mcg PO QAM 12/15/14 02/08/18 Verapamil HCl [Verapamil ER] 240 mg PO QAM 12/15/14 02/08/18 glipiZIDE [Glucotrol] 10 mg PO AC-BRKFST 12/15/14 02/08/18 Atorvastatin [Lipitor] 20 mg PO HS 07/23/17 02/08/18 glipiZIDE [Glucotrol] 5 mg PO HS 02/09/18 02/09/18 Previous Rx's Medication Instructions Recorded Aspirin 325 mg PO BID #60 tab 02/09/18 HYDROcodone/APAP 5-325MG [Wheeler 1 - 2 tab PO Q4-6H PRN #84 tab 02/09/18 5-325] Sennosides [Senokot] 1 tab PO BID #60 tablet 02/09/18 Famotidine [Pepcid] 20 mg PO BID #20 tablet 03/26/18 Allergies Allergy/AdvReac Type Severity Reaction Status Date / Time Iodinated Contrast- Oral and Allergy Mild Rash/Hives Verified 03/26/18 14:38 IV Dye [Iodinated Contrast Media - IV Dye] Review of Systems ROS Other: All systems not noted in ROS Statement are negative. <Eric Almaraz - Last Filed: 09/04/18 13:24> ROS Other: All systems not noted in ROS Statement are negative. <Sylvseter Harmon - Last Filed: 09/04/18 16:10> ROS Statement: Those systems with pertinent positive or pertinent negative responses have been documented in the HPI. 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 History of Any Multi-Drug Resistant Organisms: None Reported Past Surgical History: Hernia Repair, Joint Replacement Additional Past Surgical History / Comment(s): Lap bebeto fundoplasty, TUMOR RIGHT LUNG REMOVED, RIGHT CAROTID ENDARTERECTOMY, gastric surgery for rupture (pt does not know what ruptured), EGD, colonoscopy, CATARACTS., trk 04/07/17, left knee replacement Past Anesthesia/Blood Transfusion Reactions: No Reported Reaction, Motion Sickness Past Psychological History: No Psychological Hx Reported Smoking Status: Former smoker Past Alcohol Use History: None Reported, Rare - Past Family History Brother(s) Family Medical History: Diabetes Mellitus Sister(s) Family Medical History: Cancer Mother Family Medical History: Congestive Heart Failure (CHF), Coronary Artery Disease (CAD) Additional Family Medical History / Comment(s): Mother of CHF at age 83 yrs. Father Family Medical History: Myocardial Infarction ([place]) Additional Family Medical History / Comment(s): Father of [place] at age 60 yrs <Eric Almaraz - Last Filed: 09/04/18 13:24> General Exam Limitations: no limitations General appearance: alert, in no apparent distress Head exam: Present: atraumatic, normocephalic, normal inspection Eye exam: Present: normal appearance, PERRL, EOMI Pupils: Present: normal accommodation ENT exam: Present: normal exam Neck exam: Present: normal inspection Respiratory exam: Present: normal lung sounds bilaterally. Absent: respiratory distress Cardiovascular Exam: Present: regular rate, normal rhythm, normal heart sounds GI/Abdominal exam: Present: distended, tenderness (Tenderness on palpation in the umbilical and epigastric region.), normal bowel sounds (Normal bowel sounds in upper left and right and lower right quadrant.), hyperactive bowel sounds (Left lower quadrant.). Absent: guarding, rebound Extremities exam: Present: normal inspection Back exam: Present: normal inspection, full ROM Neurological exam: Present: alert, oriented X3 Psychiatric exam: Present: normal affect, normal mood Skin exam: Present: warm, normal color <Eric Almaraz - Last Filed: 09/04/18 13:24> Course <Sylvester Harmon - Last Filed: 09/04/18 16:10> Vital Signs 09/04/18 11:52 Temperature 97.9 F Pulse Rate 98 Respiratory 18 Rate Blood Pressure 166/87 O2 Sat by Pulse 100 Oximetry - Reevaluation(s) Reevaluation #1: 09/04/18 16:10 PA supervision: I proceeded [id number] evaluation the patient picked up several complaints of abdominal pain as well as constipation. CAT scan did show evidence of fecal retention with small bowel obstruction he did however the meantime have a large bowel movement and did feel improved I did discuss case with patient family members and with Dr. Oneil. Patient will be admitted for further evaluation I do agree with the assessment and plan. (Sylvester Harmon) Medical Decision Making - Lab Data Result diagrams: 09/04/18 12:17 09/04/18 12:17 <Eric Almaraz - Last Filed: 09/04/18 13:24> - Lab Data Result diagrams: 09/04/18 12:17 09/04/18 12:17 <Sylvester Harmon - Last Filed: 09/04/18 16:10> - Medical Decision Making Patient is a 82-year-old male presenting to the emergency department with abdominal pain. CBC, CMP, UA, KUB was obtained. KUB showed obstruction. CT of pelvis and abdomen without contrast was obtained and is suggestive of small bowel obstruction and diverticulosis. After imaging patient had a bowel movement and states that he feels much better and less nausea due to Zofran. Patient was made nothing by mouth and fluids were administered. Patient will be admitted for observation upon discussion with Dr. Harmon. Admitting physician is Dr. Kurtz (Eric Almaraz) - Lab Data Lab Results 09/04/18 09/04/18 09/04/18 Range/Units 12:17 12:17 13:10 WBC 13.4 H (3.8-10.6) k/uL RBC 5.46 (4.30-5.90) m/uL Hgb 14.8 (13.0-17.5) gm/dL Hct 47.1 (39.0-53.0) % MCV 86.2 (80.0-100.0) fL MCH 27.0 (25.0-35.0) pg MCHC 31.3 (31.0-37.0) g/dL RDW 15.5 (11.5-15.5) % Plt Count 270 (150-450) k/uL Neutrophils % 91 % Lymphocytes % 3 % Monocytes % 5 % Eosinophils % 0 % Basophils % 0 % Neutrophils # 12.2 H (1.3-7.7) k/uL Lymphocytes # 0.5 L (1.0-4.8) k/uL Monocytes # 0.6 (0-1.0) k/uL Eosinophils # 0.0 (0-0.7) k/uL Basophils # 0.0 (0-0.2) k/uL Sodium 138 (137-145) mmol/L Potassium 4.7 (3.5-5.1) mmol/L Chloride 104 (98-107) mmol/L Carbon Dioxide 23 (22-30) mmol/L Anion Gap 11 mmol/L BUN 31 H (9-20) mg/dL Creatinine 1.98 H (0.66-1.25) mg/dL Est GFR (CKD-EPI)AfAm 36 (>60 ml/min/1.73 sqM) Est GFR (CKD-EPI)NonAf 31 (>60 ml/min/1.73 sqM) Glucose 208 H (74-99) mg/dL Calcium 9.5 (8.4-10.2) mg/dL Total Bilirubin 0.9 (0.2-1.3) mg/dL AST 16 L (17-59) U/L ALT 26 (21-72) U/L Alkaline Phosphatase 90 (38-126) U/L Total Protein 7.2 (6.3-8.2) g/dL Albumin 4.1 (3.5-5.0) g/dL Amylase 35 (30-110) U/L Lipase 29 (23-300) U/L Urine Color Yellow Urine Appearance Clear (Clear) Urine pH 5.5 (5.0-8.0) Ur Specific [place] 1.025 (1.001-1.035) Urine Protein 3+ H (Negative) Urine Glucose (UA) 3+ H (Negative) Urine Ketones 1+ H (Negative) Urine Blood Small H (Negative) Urine Nitrite Negative (Negative) Urine Bilirubin Negative (Negative) Urine Urobilinogen <2.0 (<2.0) mg/dL Ur Leukocyte Esterase Negative (Negative) Urine RBC 1 (0-5) /hpf Urine WBC 2 (0-5) /hpf Ur Squamous Epith Cells 1 (0-4) /hpf Urine Bacteria Occasional H (None) /hpf Hyaline Casts 4 H (0-2) /lpf Granular Casts 6 (0) /lpf Urine Mucus Rare H (None) /hpf Disposition Is patient prescribed a controlled substance at d/c from ED?: No <Eric Almaraz - Last Filed: 09/04/18 13:24> <Sylvester Harmon - Last Filed: 09/04/18 16:10> Clinical Impression: Abdominal pain in male Disposition: ADMITTED IP TO THIS HOSP Condition: Stable
[2018-09-04 13:00] LABS: Albumin 4.1 g/dL (3.5-5.0); Calcium 9.5 mg/dL (8.4-10.2); Potassium 4.7 mmol/L (3.5-5.1); Total Bilirubin 0.9 mg/dL (0.2-1.3); Total Protein 7.2 g/dL (6.3-8.2)
[2018-09-04 13:02] LABS: Basophils % (A) 0 %; Eosinophils % (A) 0 %; HCT 47.1 % (39.0-53.0); HGB 14.8 gm/dL (13.0-17.5); Lymphocytes # (A) 0.5 k/uL (1.0-4.8); Lymphocytes % (A) 3 %; MCHC 31.3 g/dL (31.0-37.0); MCV 86.2 fL (80.0-100.0); Mean Platelet Volume 7.1; Monocytes # (A) 0.6 k/uL (0-1.0); Monocytes % (A) 5 %; Neutrophils # (A) 12.2 k/uL (1.3-7.7); Neutrophils % (A) 91 %; Platelet Count 270 k/uL (150-450); RBC 5.46 m/uL (4.30-5.90); RDW 15.5 % (11.5-15.5); WBC 13.4 k/uL (3.8-10.6)
--- NOTE | 2018-09-04 13:12 | XR ---
EXAMINATION TYPE: XR KUB , 2 VIEWS DATE OF EXAM ORDERED: 09/04/2018 HISTORY: abdominal pain. COMPARISON: None. FINDINGS: The lung bases are clear. Within the abdomen, bowel caliber is normal. There are multiple air-fluid levels throughout the abdom en. No unusual calcifications are seen. There are moderate degenerative changes within the spine. IMPRESSION: FINDINGS MOST CONSISTENT WITH GENERALIZED ILEUS.
[2018-09-04] MEDS ORDERED: ONDANSETRON 4 MG/2 ML VIAL IVP STA (13:25)
[2018-09-04 13:36] LABS: Appearance,Urine Clear (Clear); Bacteria,Urine Occasional /hpf; Bilirubin,Urine Negative (Negative); Blood,Urine Small (Negative); Color,Urine Yellow; Glucose,Urine (UA) 3+ (Negative); Granular Casts,Urine 6 /lpf (0); Hyaline Casts,Urine 4 /lpf (0-2); Ketones,Urine 1+ (Negative); Leukocyte Esterase,Urine Negative (Negative); Mucus,Urine Rare /hpf; Nitrite,Urine Negative (Negative); PH, Urine 5.5 (5.0-8.0); Protein,Urine 3+ (Negative); RBC,Urine 1 /hpf (0-5); Specific Gravity,Urine 1.025 (1.001-1.035); Squamous Epithelial Cell,Urine 1 /hpf (0-4); Urobilinogen,Urine <2.0 mg/dL (<2.0); WBC,Urine 2 /hpf (0-5)
--- NOTE | 2018-09-04 14:24 | CT ---
EXAMINATION TYPE: CT abdomen pelvis wo con DATE OF EXAM: 09/04/2018 COMPARISON: 12/15/2014 HISTORY: 82-year-old male epigastric pain CT DLP: 808.6 mGycm. Automated exposure control for dose reduction was used. TECHNIQUE: Contiguous axial scanning of the abdomen and pelvis without IV contrast. Coronal and sagit troy reconstructions performed. FINDINGS: Heart upper limits of normal in size without pericardial effusion. Suggestion of a broncholith in the right lower lobe, minimally larger from 2015. Some emphysematous change noted in the lower lungs wit h strandy scarring. There is a small hiatal hernia. Some post surgical changes at the GE junction. Breathing motion artifact is present. Noncontrast appearance of the liver, spleen, and atrophic pancreas show no gross abnormality. Small parapelvic cysts involving the left kidney and a 1.3 cm cortical hypodensity lateral lower pole right kidney. These were present previously suggesting cysts. Dilated fluid-filled small bowel loops demonstrated and some associated central mesenteric edema. Sma ll bowel loops measure up to 3.6 cm and there is equalization of bowel content and suspected transiti on point somewhere just behind the patient's ventral abdominal wall mesh repair, refer to coronal jeremy ge 26. Distal small bowel loops are collapsed. No free fluid or free air. Moderate stool within the colon. Sigmoid diverticulosis. Mildly redundant sigmoid colon. No evidence for acute diverticulitis. Normal appendix. No mesenteric or retroperitoneal lymphadenopathy. Moderate atherosclerotic calcifications of abdominal aorta and iliac arteries. Bladder partially distended. Prominent stool distending the rectum up to 6.4 cm wide. No abnormal flu id collection in the pelvis or pelvic lymphadenopathy. Bones: Degenerative changes of the hips. Degenerative changes throughout the lumbar spine. No osseous destructive process. IMPRESSION: 1. Findings suggest small bowel obstruction with small bowel loops dilated up to 3.6 cm and showing multiple air-fluid levels. Transition point somewhere along the anterior mid abdomen just behind the patient's prior abdominal wall mesh repair. 2. Moderate stool burden and sigmoid diverticulosis without evidence for acute diverticulitis. 3. Small hiatal hernia with prior surgical change at the GE junction. Query history of prior hernia repair.
[2018-09-04] MEDS ORDERED: IBUPROFEN 400 MG TAB PO PRN (15:37)
[2018-09-04] MEDS ORDERED: ONDANSETRON 4 MG/2 ML VIAL IVP PRN (15:37)
[2018-09-04] MEDS ORDERED: ACETAMINOPHEN TAB 325 MG TAB PO PRN (15:37)
[2018-09-04] MEDS ORDERED: HYDROcodone/APAP 5-325MG 1 EACH TAB PO PRN (15:37)
[2018-09-04] MEDS ORDERED: NALOXONE 0.4 MG/ML 1 ML VIAL IV PRN (15:37)
[2018-09-04] MEDS ORDERED: MORPHINE SULFATE 4 MG/ML SYRINGE IV PRN (15:37)
[2018-09-04] MEDS ORDERED: LACTULOSE 20 GM/30 ML CUP PO PRN (15:37)
[2018-09-04] MEDS ORDERED: SODIUM CHLORIDE 0.9% 1,000 ML IV STA (15:49)
[2018-09-04 19:18] VITALS: BMI 29.4
[2018-09-04 20:13] LABS: Glucose,Whole Blood 151 mg/dL (75-99)
[2018-09-04] MEDS: INSULIN ASPART (NovoLOG) 100 UNIT/ML VIAL SQ SCH (21:05)
--- NOTE | 2018-09-04 21:48 | HP ---
HISTORY AND PHYSICAL CHIEF COMPLAINT: Abdominal pain. HISTORY OF PRESENT ILLNESS: This gentleman presented to the emergency room after acutely developing generalized abdominal pain. He became bloated and distended. He has not had any diarrhea, melena, hematochezia, nausea, vomiting, etc. He has had no fever or chills. In the emergency room, his picture was compatible with either bowel obstruction or ileus. He has had prior abdominal surgery. He is diabetic. REVIEW OF SYSTEMS: He has had no fever, chills, neurologic problems, chest pain, shortness of breath, dysuria, frequency, urgency, etc. Diabetes is well controlled. Past medical history, family history, personal and social histories are otherwise unremarkable and noncontributory. PHYSICAL EXAMINATION: Blood pressure is 145/85 with a pulse of 76, respirations of 32 and he is afebrile. In general, he appeared to be slightly dehydrated. Skin color is normal. Head, ears, eyes, nose, mouth, and throat were normal. Neck veins are not distended. Thyroid was not enlarged. Chest was clear and cardiac exam demonstrates sinus rhythm and no murmurs. The abdomen is slightly protuberant and has generalized mild to moderate tenderness. There are no masses or visceromegaly. Bowel sounds are heard. Extremities are normal. Neurologically he is intact. IMPRESSION: 1. Abdominal pain. 2. ? ileus. 3. ? small bowel obstruction. PLAN: 1. Bed rest. 2. IV fluids. 3. Surgery consult. MMRACH / PRATEEK: [id number] /
[2018-09-05 05:24] VITALS: TEMP 97.8
[2018-09-05 07:00] LABS: Glucose,Whole Blood 110 mg/dL (75-99)
[2018-09-05] MEDS: INSULIN ASPART (NovoLOG) 100 UNIT/ML VIAL SQ SCH ×3 (08:14→17:20)
--- NOTE | 2018-09-05 11:10 | P.GSCN ---
History of Present Illness Consult date: 09/05/18 Reason for Consult: Small bowel obstruction History of present illness: This is an 82-year-old male who was admitted to the hospital with abdominal pain distention. His CAT scan showed evidence of a small bowel obstruction. Patient states he feels well today. He states he had a bowel movement and flatus overnight. He denies any nausea or vomiting. 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 He i s independent. He uses no assistive device. He drives a car. Smoking Status: Former smoker Past Alcohol Use History: None Reported, Rare Additional Past Alcohol Use History / Comment(s): Pt started smoking in 8 1ppd and quit in 1967. Past Drug Use History: None Reported - Past Family History Brother(s) Family Medical History: Diabetes Mellitus Sister(s) Family Medical History: Cancer Mother Family Medical History: Congestive Heart Failure (CHF), Coronary Artery Disease (CAD) Additional Family Medical History / Comment(s): Mother of CHF at age 83 yrs. Father Family Medical History: Myocardial Infarction ([place]) Additional Family Medical History / Comment(s): Father of [place] at age 60 yrs Medications and Allergies Home Medications Medication Instructions Recorded Confirmed Type Aspirin 81 mg PO HS 12/15/14 09/04/18 History Levothyroxine Sodium [Synthroid] 50 mcg PO QAM 12/15/14 09/04/18 History Verapamil HCl [Verapamil ER] 240 mg PO QAM 12/15/14 09/04/18 History glipiZIDE [Glucotrol] 10 mg PO AC-BRKFST 12/15/14 09/04/18 History Atorvastatin [Lipitor] 20 mg PO HS 07/23/17 09/04/18 History glipiZIDE [Glucotrol] 5 mg PO HS 02/09/18 09/04/18 History Famotidine [Pepcid] 20 mg PO BID #20 tablet 03/26/18 09/04/18 Rx Furosemide [Lasix] 20 mg PO DAILY 09/04/18 09/04/18 History Allergies Allergy/AdvReac Type Severity Reaction Status Date / Time Iodinated Contrast- Oral and Allergy Mild Rash/Hives Verified 09/04/18 16:28 IV Dye [Iodinated Contrast Media - IV Dye] Surgical - Exam Vital Signs Temp Pulse Resp BP Pulse Ox 97.9 F 98 18 166/87 100 09/04/18 11:52 09/04/18 11:52 09/04/18 11:52 09/04/18 11:52 09/04/18 11:52 - General well developed, well nourished, no distress - Eyes PERRL - ENT normal pinna - Neck no masses - Respiratory normal expansion - Cardiovascular Rhythm: regular - Abdomen Abdomen: soft, non tender Results - Labs 09/04/18 12:17 09/04/18 12:17 Abnormal Lab Results - Last 24 Hours (Table) 09/04/18 09/04/18 09/04/18 Range/Units 12:17 12:17 13:10 WBC 13.4 H (3.8-10.6) k/uL Neutrophils # 12.2 H (1.3-7.7) k/uL Lymphocytes # 0.5 L (1.0-4.8) k/uL BUN 31 H (9-20) mg/dL Creatinine 1.98 H (0.66-1.25) mg/dL Glucose 208 H (74-99) mg/dL POC Glucose (mg/dL) (75-99) mg/dL AST 16 L (17-59) U/L Urine Protein 3+ H (Negative) Urine Glucose (UA) 3+ H (Negative) Urine Ketones 1+ H (Negative) Urine Blood Small H (Negative) Urine Bacteria Occasional H (None) /hpf Hyaline Casts 4 H (0-2) /lpf Urine Mucus Rare H (None) /hpf 09/04/18 09/05/18 Range/Units 20:11 06:56 WBC (3.8-10.6) k/uL Neutrophils # (1.3-7.7) k/uL Lymphocytes # (1.0-4.8) k/uL BUN (9-20) mg/dL Creatinine (0.66-1.25) mg/dL Glucose (74-99) mg/dL POC Glucose (mg/dL) 151 H 110 H (75-99) mg/dL AST (17-59) U/L Urine Protein (Negative) Urine Glucose (UA) (Negative) Urine Ketones (Negative) Urine Blood (Negative) Urine Bacteria (None) /hpf Hyaline Casts (0-2) /lpf Urine Mucus (None) /hpf Diabetes panel 09/04/18 Range/Units 12:17 Sodium 138 (137-145) mmol/L Potassium 4.7 (3.5-5.1) mmol/L Chloride 104 (98-107) mmol/L Carbon Dioxide 23 (22-30) mmol/L BUN 31 H (9-20) mg/dL Creatinine 1.98 H (0.66-1.25) mg/dL Glucose 208 H (74-99) mg/dL Calcium 9.5 (8.4-10.2) mg/dL AST 16 L (17-59) U/L ALT 26 (21-72) U/L Alkaline Phosphatase 90 (38-126) U/L Total Protein 7.2 (6.3-8.2) g/dL Albumin 4.1 (3.5-5.0) g/dL Calcium panel 09/04/18 Range/Units 12:17 Calcium 9.5 (8.4-10.2) mg/dL Albumin 4.1 (3.5-5.0) g/dL Pituitary panel 09/04/18 Range/Units 12:17 Sodium 138 (137-145) mmol/L Potassium 4.7 (3.5-5.1) mmol/L Chloride 104 (98-107) mmol/L Carbon Dioxide 23 (22-30) mmol/L BUN 31 H (9-20) mg/dL Creatinine 1.98 H (0.66-1.25) mg/dL Glucose 208 H (74-99) mg/dL Calcium 9.5 (8.4-10.2) mg/dL Adrenal panel 09/04/18 Range/Units 12:17 Sodium 138 (137-145) mmol/L Potassium 4.7 (3.5-5.1) mmol/L Chloride 104 (98-107) mmol/L Carbon Dioxide 23 (22-30) mmol/L BUN 31 H (9-20) mg/dL Creatinine 1.98 H (0.66-1.25) mg/dL Glucose 208 H (74-99) mg/dL Calcium 9.5 (8.4-10.2) mg/dL Total Bilirubin 0.9 (0.2-1.3) mg/dL AST 16 L (17-59) U/L ALT 26 (21-72) U/L Alkaline Phosphatase 90 (38-126) U/L Total Protein 7.2 (6.3-8.2) g/dL Albumin 4.1 (3.5-5.0) g/dL Assessment and Plan Assessment: Resolving small bowel obstruction. Patient appears to be completely symptomatically. We will start him on clear liquid diet.
[2018-09-05 12:10] LABS: Glucose,Whole Blood 118 mg/dL (75-99)
[2018-09-05 14:14] VITALS: BP 166/76
[2018-09-05 15:26] VITALS: PULSE 54
[2018-09-05 17:20] LABS: Glucose,Whole Blood 131 mg/dL (75-99)
--- NOTE | 2018-09-06 06:38 | DS ---
DISCHARGE SUMMARY CHIEF COMPLAINT: Abdominal pain and possible small bowel obstruction. HISTORY OF PRESENT ILLNESS AND PHYSICAL EXAM: The details of this man's history and physical can be found in the initial workup. LABORATORY STUDIES: While he was in a hospital he had laboratory studies, details of which can be found in the laboratory section of his chart. COURSE IN HOSPITAL: After admission he was placed on bedrest, started on intravenous fluids and clear liquids. He was seen by Surgery. He started to pass flatus and abdominal pain went away. It was felt that his diet could be advanced and he could go home on the . He will follow up in the office. FINAL DIAGNOSES: 1. Partial or incomplete small-bowel obstruction?.. 2. Ileus? 3. Type 2 insulin-dependent diabetes mellitus. OPERATION: None. CONSULTATION: Surgery. He is improved. MMODL / IJN: [id number] /
== END 2018-09-05 19:27 | disposition home or self-care (01) | DRG 390 ==
LOC: EC 11:50 → 4SSUR 15:49 → 3NMEDONC 18:00
PROVIDERS: ADMIT Family Medicine; ATTEND Family Medicine
DX: K56.600 Partial intestinal obstruction, unspecified as to cause (principal); K56.7 Ileus, unspecified; E11.51 Type 2 diabetes mellitus with diabetic peripheral angiopathy without gangrene; E78.5 Hyperlipidemia, unspecified; I10 Essential (primary) hypertension; Z79.4 Long term (current) use of insulin; Z79.82 Long term (current) use of aspirin; Z79.890 Hormone replacement therapy; Z79.899 Other long term (current) drug therapy; Z82.49 Family history of ischemic heart disease and other diseases of the circulatory system; Z83.3 Family history of diabetes mellitus; Z87.891 Personal history of nicotine dependence; Z96.652 Presence of left artificial knee joint; Z98.49 Cataract extraction status, unspecified eye; E07.9 Disorder of thyroid, unspecified; Z80.9 Family history of malignant neoplasm, unspecified; M19.90 Unspecified osteoarthritis, unspecified site; Z91.041 Radiographic dye allergy status; E86.0 Dehydration
CPT/HCPCS: 36415; 74018; 74176; 80053; 81001; 82150; 83690; 85025; 96374; 99285

== ENCOUNTER → 2019-01-14 | Outpatient (CLI) | payer MEDICARE, BC ==
--- NOTE | 2019-01-14 18:53 | US ---
EXAMINATION TYPE: US kidneys/renal and bladder DATE OF EXAM: 01/14/2019 COMPARISON: NONE CLINICAL HISTORY: N18.3 CKD Stage 3. CKD stage III EXAM MEASUREMENTS: Right Kidney: 9.4 x 4.7 x 3.9 cm Left Kidney: 9.3 x 4.6 x 4.1 cm Technical limitations due to large amount of overlying bowel content Right Kidney: thin renal cortex, cystic area lower pole = 1.6 x 1.4 x 1.6cm Left Kidney: thin renal cortex Bladder: appears wnl Bilateral Jets seen: no IMPRESSION: 1. Inferior pole right renal cyst
== END | disposition home or self-care (01) ==
LOC: RADUSWWP 13:33
PROVIDERS: ATTEND Internal Medicine
DX: N28.1 Cyst of kidney, acquired (principal); N18.3 Chronic kidney disease, stage 3 (moderate)
CPT/HCPCS: 76770

== ENCOUNTER → 2019-01-26 | Outpatient (CLI) | payer MEDICARE, BC ==
[2019-01-26 09:57] LABS: Appearance,Urine Clear (Clear); Bacteria,Urine Rare /hpf; Bilirubin,Urine Negative (Negative); Blood,Urine Trace (Negative); Color,Urine Yellow; Glucose,Urine (UA) 3+ (Negative); Ketones,Urine Negative (Negative); Leukocyte Esterase,Urine Small (Negative); Mucus,Urine Rare /hpf; Nitrite,Urine Negative (Negative); Protein,Urine 1+ (Negative); RBC,Urine 2 /hpf (0-5); Specific Gravity,Urine 1.018 (1.001-1.035); Urobilinogen,Urine <2.0 mg/dL (<2.0); WBC,Urine 5 /hpf (0-5)
[2019-01-26 10:04] LABS: HCT 37.8 % (39.0-53.0); HGB 11.7 gm/dL (13.0-17.5); Hypochromasia Slight; MCH 28.2 pg (25.0-35.0); MCHC 30.9 g/dL (31.0-37.0); MCV 91.1 fL (80.0-100.0); Mean Platelet Volume 6.6; Platelet Count 243 k/uL (150-450); RBC 4.15 m/uL (4.30-5.90); RDW 14.8 % (11.5-15.5); WBC 6.1 k/uL (3.8-10.6)
[2019-01-26 17:22] LABS: Iron Saturation 15.33 (15.00-50.00)
[2019-01-26 17:30] LABS: Ferritin 32.8 ng/mL (22.0-322.0); Vitamin D 25 Hydroxy 33.7 ng/mL (30.0-100.0)
[2019-01-26 17:38] LABS: Albumin 3.6 g/dL (3.80-4.90); Albumin/Globulin Ratio 1.64 (1.60-3.17); Anion Gap 9.7 mmol/L (4.00-12.00); BUN/Creat Ratio 15.71 Ratio (12.00-20.00); Calcium 8.7 mg/dL (8.7-10.3); Carbon Dioxide 23.3 mmol/L (21.6-31.8); Globulin 2.2 g/dL (1.6-3.3); Magnesium 2.1 mg/dL (1.5-2.4); Phosphorus 3.5 mg/dL (2.4-5.1); Potassium 4.8 mmol/L (3.5-5.5); Total Bilirubin 0.4 mg/dL (0.3-1.2); Total Protein 5.8 g/dL (6.2-8.2); Uric Acid 4.9 mg/dL (3.7-8.7)
== END | disposition home or self-care (01) ==
LOC: LABWHC1 09:09
PROVIDERS: ATTEND Internal Medicine
DX: N39.0 Urinary tract infection, site not specified (principal); M10.9 Gout, unspecified; N25.81 Secondary hyperparathyroidism of renal origin; D63.1 Anemia in chronic kidney disease; N18.3 Chronic kidney disease, stage 3 (moderate); E55.0 Rickets, active
CPT/HCPCS: 36415; 80053; 81001; 82043; 82306; 82570; 82728; 83540; 83550; 83735; 83970; 84100; 84550; 85027

== ENCOUNTER 2019-05-14 17:41 | Emergency (ER) | payer MEDICARE, BC ==
[2019-05-14 17:59] VITALS: TEMP 97.8
--- NOTE | 2019-05-14 18:18 | ED ---
Head Injury HPI - General Chief complaint: Head Injury Stated complaint: fall Time Seen by Provider: 05/14/19 18:02 Source: patient Mode of arrival: ambulatory Limitations: no limitations - History of Present Illness Initial comments: 83-year-old male patient presents to the emergency department today for evaluation after sustaining head injury. Patient states last evening he was stepping up onto a curb when he slipped and fell backwards striking his head on the ground. Patient denies loss of consciousness. He denies any headache, neck pain, dizziness, weakness, blurred vision, double vision, nausea, or vomiting today. Denies any other injuries. He does have abrasion and soft tissue swelling to the scalp, states his last tetanus vaccine was 2 weeks ago. He does take aspirin daily. Patient denies any back pain, chest pain, shortness of breath, dizziness, weakness, abdominal pain, nausea, vomiting, or difficulties with bowel movements or urination. - Related Data Home Medications Medication Instructions Recorded Confirmed Aspirin 81 mg PO HS 12/15/14 09/04/18 Levothyroxine Sodium [Synthroid] 50 mcg PO QAM 12/15/14 09/04/18 Verapamil HCl [Verapamil ER] 240 mg PO QAM 12/15/14 09/04/18 glipiZIDE [Glucotrol] 10 mg PO AC-BRKFST 12/15/14 09/04/18 Atorvastatin [Lipitor] 20 mg PO HS 07/23/17 09/04/18 glipiZIDE [Glucotrol] 5 mg PO HS 02/09/18 09/04/18 Furosemide [Lasix] 20 mg PO DAILY 09/04/18 09/04/18 Previous Rx's Medication Instructions Recorded Famotidine [Pepcid] 20 mg PO BID #20 tablet 03/26/18 Allergies/Adverse reactions: Allergies Allergy/AdvReac Type Severity Reaction Status Date / Time Iodinated Contrast Media Allergy Mild Rash/Hives Verified 05/14/19 17:55 [Iodinated Contrast Media - IV Dye] Review of Systems ROS Statement: Those systems with pertinent positive or pertinent negative responses have been documented in the HPI. ROS Other: All systems not noted in ROS Statement are negative. 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 History of Any Multi-Drug Resistant Organisms: None Reported Past Surgical History: Hernia Repair, Joint Replacement Additional Past Surgical History / Comment(s): Lap bebeto fundoplasty, TUMOR RIGHT LUNG REMOVED, RIGHT CAROTID ENDARTERECTOMY, gastric surgery for rupture (pt does not know what ruptured), EGD, colonoscopy, CATARACTS., trk 04/07/17, left knee replacement Past Anesthesia/Blood Transfusion Reactions: No Reported Reaction, Motion Sickness Past Psychological History: No Psychological Hx Reported Smoking Status: Former smoker Past Alcohol Use History: None Reported, Rare Past Drug Use History: None Reported - Past Family History Brother(s) Family Medical History: Diabetes Mellitus Sister(s) Family Medical History: Cancer Mother Family Medical History: Congestive Heart Failure (CHF), Coronary Artery Disease (CAD) Additional Family Medical History / Comment(s): Mother of CHF at age 83 yrs. Father Family Medical History: Myocardial Infarction ([place]) Additional Family Medical History / Comment(s): Father of [place] at age 60 yrs General Exam Limitations: no limitations General appearance: alert, in no apparent distress, other (Physical well- developed, well-nourished adult male patient in no acute distress. Vital signs upon presentation are temperature 97.8F, pulse 73, respirations 18, blood pressure 170/76, pulse ox 97% on room air.) Head exam: Present: other (There is soft tissue swelling and abrasion noted to the right posterior scalp. No bony step-off or deformity noted to palpation around the site.) Eye exam: Present: normal appearance, PERRL, EOMI. Absent: scleral icterus, conjunctival injection, nystagmus, periorbital swelling ENT exam: Present: normal exam, normal oropharynx, mucous membranes moist, TM's normal bilaterally (No hemotympanum) Neck exam: Present: normal inspection, full ROM, other (Nontender, no step-off, no deformity to firm midline palpation of the posterior cervical spine. Full range of motion without pain or limitation.). Absent: tenderness, meningismus, lymphadenopathy Respiratory exam: Present: normal lung sounds bilaterally. Absent: respiratory distress, wheezes, rales, rhonchi, stridor Cardiovascular Exam: Present: regular rate, normal rhythm, normal heart sounds. Absent: systolic murmur, diastolic murmur, rubs, gallop, clicks GI/Abdominal exam: Present: soft, normal bowel sounds. Absent: distended, tenderness, guarding, rebound, rigid Back exam: Present: normal inspection, other (Nontender, no step-off, no deformity to firm midline palpation of the thoracic and lumbar vertebrae. Full range of motion without pain or limitation.). Absent: vertebral tenderness Neurological exam: Present: alert, oriented X3, CN II-XII intact Psychiatric exam: Present: normal affect, normal mood Skin exam: Present: warm, dry, intact, normal color. Absent: rash Course Vital Signs 05/14/19 05/14/19 17:55 17:59 Temperature 97.8 F Pulse Rate 73 Respiratory 18 20 Rate Blood Pressure 170/76 O2 Sat by Pulse 97 Oximetry Medical Decision Making - Medical Decision Making 83-year-old male patient presented to the emergency department today for evaluation of head injury. Patient had a slip and fall accident last night. Physical examination does reveal right posterior scalp hematoma with superficial abrasion. He is neurologically intact with no focal deficits. He has no concerning symptoms today however does take a daily aspirin. CT brain and C- spine were negative. He'll be discharged home to follow-up with his primary care physician for recheck in 1-2 days. We did discuss signs or symptoms of worsening head injury in detail. Return parameters were discussed in detail. He verbalizes understanding and agrees with this plan. - Radiology Data Radiology results: report reviewed, image reviewed CT brain and C-spine without contrast was obtained. Report is reviewed in its entirety. Impression by Dr. Shah shows there is no acute fracture dislocation evident in the cervical spine. No acute intracranial hemorrhage, mass effect, or midline shift is seen. Disposition Clinical Impression: Head injury, Scalp hematoma, Scalp abrasion Disposition: HOME SELF-CARE Condition: Good Instructions (If sedation given, give patient instructions): Head Injury (ED), Abrasion (ED), Hematoma (ED) Additional Instructions: Keep wound clean and dry. Monitor for signs or symptoms of worsening head injury including but not limited to confusion, headaches, vomiting, dizziness, weakness. Follow-up through primary care physician for recheck in 1-2 days. Return to the emergency department immediately for any new, worsening, or concerning symptoms. Is patient prescribed a controlled substance at d/c from ED?: No Referrals: Michael Oneil MD [Primary Care Provider] - 1-2 days Time of Disposition: 19:21
--- NOTE | 2019-05-14 19:15 | CT ---
EXAMINATION TYPE: CT brain krzysztof cope con DATE OF EXAM: 05/14/2019 COMPARISON: HISTORY: PT fell yesterday, hitting back of head, no LOC CT DLP: 1498.4 mGycm Automated exposure control for dose reduction was used. TECHNIQUE: CT scan of the head and cervical spine are performed without contrast. FINDINGS: There is no acute intracranial hemorrhage, mass effect, or midline shift identified. The ventricles and sulci are within normal limits in size. The globes are intact and the visualized sin uses are clear. There are cerebral vascular calcifications present. Cortical atrophy is likely age-re lated. Periventricular white matter shows patchy low attenuation likely due to chronic small vessel i schemic changes. Cervical spine is visualized in its entirety from C1 through upper thoracic levels and demonstrates s atisfactory alignment without evidence of acute fracture or dislocation. Prevertebral soft tissue ap pears within normal limits. The C1-C2 articulation is unremarkable. There is ossification the poste rior longitudinal ligament noted posterior to C2-C3, arthropathy changes present at the anterior C1-2 articulation with some associated well-corticated ossific densities present not felt likely to be ac [place]. There is multilevel facet arthropathy change. Multilevel foraminal encroachment is present. IMPRESSION: 1. There is no acute fracture or dislocation evident in the cervical spine. 2. No acute intracranial hemorrhage, mass effect, or midline shift is seen.
[2019-05-14 19:36] VITALS: BP 168/75; PULSE 78; RESP 18
== END 2019-05-14 19:36 | disposition home or self-care (01) ==
LOC: EC 17:41
DX: S00.03XA Contusion of scalp, initial encounter (principal); E11.51 Type 2 diabetes mellitus with diabetic peripheral angiopathy without gangrene; E78.5 Hyperlipidemia, unspecified; I10 Essential (primary) hypertension; M19.90 Unspecified osteoarthritis, unspecified site; E07.9 Disorder of thyroid, unspecified; Z87.891 Personal history of nicotine dependence; Z91.041 Radiographic dye allergy status; Z79.82 Long term (current) use of aspirin; Z79.84 Long term (current) use of oral hypoglycemic drugs; Z79.890 Hormone replacement therapy; Z79.899 Other long term (current) drug therapy; W00.0XXA Fall on same level due to ice and snow, initial encounter; Y93.89 Activity, other specified; Y92.009 Unspecified place in unspecified non-institutional (private) residence as the place of occurrence of the external cause
CPT/HCPCS: 70450; 72125; 99283

== ENCOUNTER 2019-09-30 21:55 | Emergency (ER) | payer MEDICARE, BC ==
[2019-09-30 22:06] VITALS: RESP 18
--- NOTE | 2019-09-30 23:32 | CT ---
EXAMINATION TYPE: CT brain cspine wo con DATE OF EXAM: 09/30/2019 COMPARISON: 05/14/2019 HISTORY: Fall Today. Neck pain CT DLP: 1497.90 mGycm Automated exposure control for dose reduction was used. There is some cerebral cortical atrophy. There is no mass effect nor midline shift. There is no sign of intracranial hemorrhage. There is right posterior parietal scalp hematoma. The calvarium is intact . Temporal bones are intact. Cervical vertebra have normal alignment. There is calcification of posterior longitudinal ligament at C2-3. Facet joints are intact. There is multilevel hypertrophic cervical facet arthropathy. Atlantoa xial facet joint is intact. Disc spaces are fairly normal. IMPRESSION: Mild atrophy. Right posterior parietal scalp hematoma. No acute intracranial abnormality. Brain uncha nged. Minor degenerative changes in the cervical spine. No fracture. No change compared to old exam.
--- NOTE | 2019-09-30 23:36 | ED ---
Fall HPI - General Chief Complaint: Fall Stated Complaint: Fall, head injury Time Seen by Provider: 09/30/19 22:15 Source: patient Mode of arrival: ambulatory - History of Present Illness Initial Comments: 83-year-old male patient presents to the emergency department today for evaluation after falling and sustaining a head injury. Patient states around 6 PM this evening he was in his driveway, heard a noise, turned to see what it was and tripped falling and hitting his head. Patient denies any loss of consciousness with this injury. States he is having very mild pain locally to the swollen area. Denies any nausea, vomiting, blurred vision, double vision, dizziness, or weakness. States he is having some mild neck discomfort with this as well. Denies radiation of pain down his arms. Denies any back pain. Denies any other injuries. States he does take a baby aspirin daily but denies any other anticoagulants or antiplatelet medications. Patient denies any chest pain, shortness of breath, dizziness, weakness, abdominal pain, nausea, vomiting, or difficulties with bowel movements or urination. - Related Data Home Medications Medication Instructions Recorded Confirmed Aspirin 81 mg PO HS 12/15/14 09/04/18 Levothyroxine Sodium [Synthroid] 50 mcg PO QAM 12/15/14 09/04/18 Verapamil HCl [Verapamil ER] 240 mg PO QAM 12/15/14 09/04/18 glipiZIDE [Glucotrol] 10 mg PO AC-BRKFST 12/15/14 09/04/18 Atorvastatin [Lipitor] 20 mg PO HS 07/23/17 09/04/18 glipiZIDE [Glucotrol] 5 mg PO HS 02/09/18 09/04/18 Furosemide [Lasix] 20 mg PO DAILY 09/04/18 09/04/18 Previous Rx's Medication Instructions Recorded Famotidine [Pepcid] 20 mg PO BID #20 tablet 03/26/18 Allergies Allergy/AdvReac Type Severity Reaction Status Date / Time Iodinated Contrast Media Allergy Mild Rash/Hives Verified 09/30/19 22:06 [Iodinated Contrast Media - IV Dye] Review of Systems ROS Statement: Those systems with pertinent positive or pertinent negative responses have been documented in the HPI. ROS Other: All systems not noted in ROS Statement are negative. 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 History of Any Multi-Drug Resistant Organisms: None Reported Past Surgical History: Hernia Repair, Joint Replacement Additional Past Surgical History / Comment(s): Lap bebeto fundoplasty, TUMOR RIGHT LUNG REMOVED, RIGHT CAROTID ENDARTERECTOMY, gastric surgery for rupture (pt does not know what ruptured), EGD, colonoscopy, CATARACTS., trk 04/07/17, left knee replacement Past Anesthesia/Blood Transfusion Reactions: No Reported Reaction, Motion Sickness Past Psychological History: No Psychological Hx Reported Smoking Status: Former smoker Past Alcohol Use History: None Reported, Rare Past Drug Use History: None Reported - Past Family History Brother(s) Family Medical History: Diabetes Mellitus Sister(s) Family Medical History: Cancer Mother Family Medical History: Congestive Heart Failure (CHF), Coronary Artery Disease (CAD) Additional Family Medical History / Comment(s): Mother of CHF at age 83 yrs. Father Family Medical History: Myocardial Infarction ([place]) Additional Family Medical History / Comment(s): Father of [place] at age 60 yrs General Exam Limitations: no limitations General appearance: alert, in no apparent distress, other (This is a well- developed, well-nourished adult male patient in no acute distress. Vital signs upon presentation are temperature 98.5F, pulse 58, respirations 18, blood pressure 197/69, pulse ox 97% on room air.) Head exam: Present: normocephalic, other (Patient has hematoma noted to the right posterior scalp. Tenderness over the area. ) Eye exam: Present: normal appearance, PERRL, EOMI. Absent: scleral icterus, conjunctival injection, nystagmus, periorbital swelling ENT exam: Present: normal exam, normal oropharynx, mucous membranes moist Neck exam: Present: normal inspection, tenderness (There is tenderness over the mid cervical spine posteriorly), full ROM, other (No bony step-off or deformity noted to for midline palpation of the posterior cervical spine). Absent: meningismus, lymphadenopathy Respiratory exam: Present: normal lung sounds bilaterally. Absent: respiratory distress, wheezes, rales, rhonchi, stridor Cardiovascular Exam: Present: regular rate, normal rhythm, normal heart sounds. Absent: systolic murmur, diastolic murmur, rubs, gallop, clicks GI/Abdominal exam: Present: soft, normal bowel sounds. Absent: distended, tenderness, guarding, rebound, rigid Back exam: Present: normal inspection, other (Nontender, no step-off, no deformity to firm midline palpation of the thoracic and lumbar vertebrae. Full range of motion without pain or limitation.). Absent: vertebral tenderness Neurological exam: Present: alert, oriented X3, CN II-XII intact Psychiatric exam: Present: normal affect, normal mood Skin exam: Present: warm, dry, intact, normal color. Absent: rash Course Vital Signs 09/30/19 09/30/19 22:04 23:48 Temperature 98.5 F 98 F Pulse Rate 58 L 60 Respiratory 18 18 Rate Blood Pressure 197/69 175/62 O2 Sat by Pulse 97 98 Oximetry Medical Decision Making - Medical Decision Making 83-year-old male patient presents to the emergency department today for evaluation after experiencing a fall with head injury. Physical examination did reveal a hematoma to the right posterior scalp. Patient is neurologically intact with no focal deficits. Did have some mild neck tenderness. No increased pain with range of motion. CT brain and C-spine was obtained. No acute intracranial or cervical spine abnormalities were noted. Patient was informed of all results. We did discuss cervical strain and hematoma as his diagnosis. He is instructed to follow-up with his primary care physician for recheck in 1-2 days. Instructed to take Tylenol for pain control. Return parameters were discussed in detail. Both patient and verbalized understanding and agree with this plan. - Radiology Data Radiology results: report reviewed, image reviewed CT brain and C-spine without contrast is obtained. Report was reviewed in its entirety. Impression by Dr. Whitt shows mild atrophy. No posterior parietal scalp hematoma. No acute intracranial abnormality. Brain unchanged. Minor degenerative changes in the cervical spine. No fracture. No change compared to old exam. Disposition Clinical Impression: Head injury, Scalp hematoma, Cervical strain Disposition: HOME SELF-CARE Condition: Good Instructions (If sedation given, give patient instructions): Cervical Strain (ED), Head Injury (ED), Fall Prevention (ED), Hematoma (ED) Additional Instructions: Apply ice to the area of swelling 20 minutes at a time at least 4 times daily. Take, for pain control. Follow-up with your primary care physician for recheck in 1-2 days. Return to the emergency department immediately for any new, worsening, or concerning symptoms. Is patient prescribed a controlled substance at d/c from ED?: No Referrals: Michael Oneil MD [Primary Care Provider] - 1-2 days Time of Disposition: 23:36
[2019-09-30 23:49] VITALS: BP 175/62; PULSE 60; TEMP 98
== END 2019-09-30 23:49 | disposition home or self-care (01) ==
LOC: EC 21:55
DX: S16.1XXA Strain of muscle, fascia and tendon at neck level, initial encounter (principal); S00.03XA Contusion of scalp, initial encounter; E11.9 Type 2 diabetes mellitus without complications; E78.5 Hyperlipidemia, unspecified; I10 Essential (primary) hypertension; M19.90 Unspecified osteoarthritis, unspecified site; E07.9 Disorder of thyroid, unspecified; Z79.82 Long term (current) use of aspirin; Z79.890 Hormone replacement therapy; Z79.84 Long term (current) use of oral hypoglycemic drugs; Z79.899 Other long term (current) drug therapy; Z87.891 Personal history of nicotine dependence; Z91.041 Radiographic dye allergy status; Z96.652 Presence of left artificial knee joint; W01.0XXA Fall on same level from slipping, tripping and stumbling without subsequent striking against object, initial encounter; Y93.89 Activity, other specified; Y92.59 Other trade areas as the place of occurrence of the external cause
CPT/HCPCS: 70450; 72125; 99283

== ENCOUNTER → 2020-03-23 | Outpatient (CLI) | payer MEDICARE, BC ==
--- NOTE | 2020-03-23 10:10 | US ---
EXAMINATION TYPE: US kidneys/renal and bladder DATE OF EXAM: 03/23/2020 COMPARISON: NONE CLINICAL HISTORY: N18.30 CKD STAGE III. CKD stage III EXAM MEASUREMENTS: Right Kidney: 9.5 x 4.6 x 3.8 cm Left Kidney: 9.2 x 4.2 x 4.5 cm *Technical limitations due to overlying bowel content Right Kidney: echogenic, thin renal cortex, cystic area lower pole = 1.7 x 1.5 x 1.6cm Left Kidney: echogenic, thin renal cortex Bladder: not fully distended, appears wnl Bilateral Jets seen: no IMPRESSION: 1. Simple appearing right renal cyst
== END | disposition home or self-care (01) ==
LOC: RADUSWWP 08:42
PROVIDERS: ATTEND Internal Medicine
DX: N28.1 Cyst of kidney, acquired (principal); N18.30 Chronic kidney disease, stage 3 unspecified
CPT/HCPCS: 76770

== ENCOUNTER 2020-05-13 14:33 | Inpatient (IN) | payer MEDICARE, BC ==
[2020-05-13] MEDS ORDERED: SODIUM CHLORIDE 0.9% 1,000 ML IV STA (14:55)
[2020-05-13] MEDS ORDERED: ONDANSETRON 4 MG/2 ML VIAL IVP STA (14:56)
[2020-05-13 15:29] LABS: Basophils # (A) 0.1 k/uL (0-0.2); Basophils % (A) 0 %; Eosinophils # (A) 0.1 k/uL (0-0.7); Eosinophils % (A) 1 %; HCT 49.8 % (39.0-53.0); HGB 16.4 gm/dL (13.0-17.5); Lymphocytes # (A) 0.4 k/uL (1.0-4.8); Lymphocytes % (A) 2 %; MCH 29.4 pg (25.0-35.0); MCHC 32.9 g/dL (31.0-37.0); MCV 89.4 fL (80.0-100.0); Mean Platelet Volume 8.1; Monocytes # (A) 0.6 k/uL (0-1.0); Monocytes % (A) 4 %; Neutrophils # (A) 13.8 k/uL (1.3-7.7); Neutrophils % (A) 93 %; RBC 5.57 m/uL (4.30-5.90); RDW 13.6 % (11.5-15.5)
[2020-05-13 15:37] LABS: Appearance,Urine Cloudy (Clear); Bilirubin,Urine Negative (Negative); Blood,Urine Moderate (Negative); Color,Urine Yellow; Glucose,Urine (UA) 4+ (Negative); Ketones,Urine 1+ (Negative); Leukocyte Esterase,Urine Negative (Negative); Mucus,Urine Rare /hpf; Nitrite,Urine Negative (Negative); Protein,Urine 3+ (Negative); RBC,Urine 3 /hpf (0-5); Specific Gravity,Urine 1.026 (1.001-1.035); Squamous Epithelial Cell,Urine 1 /hpf (0-4); Urobilinogen,Urine <2.0 mg/dL (<2.0); WBC,Urine 30 /hpf (0-5)
[2020-05-13 15:41] LABS: ALT 19 U/L (4-49); AST 30 U/L (17-59); African American GFR (CKD) 33 (>60 ml/min/1.73 sqM); Albumin 4.3 g/dL (3.5-5.0); Alkaline Phosphatase 100 U/L (38-126); Amylase 35 U/L (30-110); Anion Gap 12 mmol/L; Blood Urea Nitrogen 33 mg/dL (9-20); Calcium 9.3 mg/dL (8.4-10.2); Carbon Dioxide 19 mmol/L (22-30); Chloride 104 mmol/L (98-107); Glucose 285 mg/dL (74-99); Lipase 40 U/L (23-300); Non-African American GFR(CKD) 29 (>60 ml/min/1.73 sqM); Sodium 135 mmol/L (137-145); Total Bilirubin 0.9 mg/dL (0.2-1.3); Total Protein 7.9 g/dL (6.3-8.2)
[2020-05-13 15:46] LABS: Potassium 5.2 mmol/L (3.5-5.1)
[2020-05-13 15:55] LABS: Platelet Count 316 k/uL (150-450)
[2020-05-13] MEDS ORDERED: DILTIAZEM DRIP BOLUS FROM BAG 1 MG SOLN IV ONE (16:11)
--- NOTE | 2020-05-13 16:13 | ED ---
General Adult HPI - General Chief complaint: Recheck/Abnormal Lab/Rx Stated complaint: High BP Time Seen by Provider: 05/13/20 14:44 Source: patient, RN notes reviewed Mode of arrival: wheelchair Limitations: no limitations - History of Present Illness Initial comments: 84-year-old male presents emergency Department chief complaint abdominal pain. Patient states has not felt well over the last herself. Patient states he feels very distended, bloated states then dry heaving most the night. Patient states he has small bowel movement this morning states it did not relieve any of symptoms. He states that it is very distended. He also noticed blood pressure is severely elevated, blood sugar to be elevated today. He does admit that he ate some food that he should not eat last night. Denies any prior abdominal surgeries. Denies any chest pain or shortness of breath. - Related Data Home Medications Medication Instructions Recorded Confirmed Aspirin 81 mg PO HS 12/15/14 09/04/18 Levothyroxine Sodium [Synthroid] 50 mcg PO QAM 12/15/14 09/04/18 Verapamil HCl [Verapamil ER] 240 mg PO QAM 12/15/14 09/04/18 glipiZIDE [Glucotrol] 10 mg PO AC-BRKFST 12/15/14 09/04/18 Atorvastatin [Lipitor] 20 mg PO HS 07/23/17 09/04/18 glipiZIDE [Glucotrol] 5 mg PO HS 02/09/18 09/04/18 Furosemide [Lasix] 20 mg PO DAILY 09/04/18 09/04/18 Previous Rx's Medication Instructions Recorded Famotidine [Pepcid] 20 mg PO BID #20 tablet 03/26/18 Allergies Allergy/AdvReac Type Severity Reaction Status Date / Time Iodinated Contrast Media Allergy Mild Rash/Hives Verified 05/13/20 14:42 [Iodinated Contrast Media - IV Dye] Review of Systems ROS Statement: Those systems with pertinent positive or pertinent negative responses have been documented in the HPI. ROS Other: All systems not noted in ROS Statement are negative. 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 History of Any Multi-Drug Resistant Organisms: None Reported Past Surgical History: Hernia Repair, Joint Replacement Additional Past Surgical History / Comment(s): Lap bebeto fundoplasty, TUMOR RIGHT LUNG REMOVED, RIGHT CAROTID ENDARTERECTOMY, gastric surgery for rupture (pt does not know what ruptured), EGD, colonoscopy, CATARACTS., trk 04/07/17, left knee replacement Past Anesthesia/Blood Transfusion Reactions: No Reported Reaction, Motion Sickness Past Psychological History: No Psychological Hx Reported Smoking Status: Former smoker Past Alcohol Use History: None Reported, Rare Past Drug Use History: None Reported - Past Family History Brother(s) Family Medical History: Diabetes Mellitus Sister(s) Family Medical History: Cancer Mother Family Medical History: Congestive Heart Failure (CHF), Coronary Artery Disease (CAD) Additional Family Medical History / Comment(s): Mother of CHF at age 83 yrs. Father Family Medical History: Myocardial Infarction ([place]) Additional Family Medical History / Comment(s): Father of [place] at age 60 yrs General Exam Limitations: no limitations General appearance: alert, in no apparent distress Head exam: Present: atraumatic, normocephalic, normal inspection Eye exam: Present: normal appearance, PERRL, EOMI. Absent: scleral icterus, conjunctival injection, periorbital swelling ENT exam: Present: normal exam, normal oropharynx Neck exam: Present: normal inspection, full ROM. Absent: tenderness, meningismus, lymphadenopathy Respiratory exam: Present: normal lung sounds bilaterally. Absent: respiratory distress, wheezes, rales, rhonchi, stridor Cardiovascular Exam: Present: tachycardia, irregular rhythm, normal heart soun ds. Absent: normal rhythm, systolic murmur, diastolic murmur, rubs, gallop, clicks GI/Abdominal exam: Present: soft, distended, tenderness, normal bowel sounds. Absent: guarding, rebound, rigid Back exam: Absent: CVA tenderness (R), CVA tenderness (L) Neurological exam: Present: alert, oriented X3, CN II-XII intact Skin exam: Present: warm, dry, intact, normal color. Absent: rash Course Vital Signs 05/13/20 05/13/20 05/13/20 14:39 15:42 16:42 Temperature 98.7 F Pulse Rate 124 H 96 Respiratory 16 18 18 Rate Blood Pressure 187/98 168/78 O2 Sat by Pulse 97 96 Oximetry 05/13/20 17:00 Temperature Pulse Rate 78 Respiratory 18 Rate Blood Pressure 143/69 O2 Sat by Pulse 96 Oximetry EKG Findings - EKG Comments: EKG Findings:: EKG performed at 15:00 atrial flutter with a rate of 118 QRS 86 QT/QTC 3:30/464 Medical Decision Making - Medical Decision Making Patient's labs, CT and urinalysis results viewed. Patient does have evidence of urinary tract infection, patient vomited in A. flutter along with CT showing evidence of small bowel obstruction. Patient's will have NG tube placed. Patient will be admitted to Dr. Oneil with consult surgery. - Lab Data Result diagrams: 05/13/20 15:00 05/13/20 15:00 Lab Results 05/13/20 05/13/20 05/13/20 Range/Units 15:00 15:00 15:00 WBC 15.0 H (3.8-10.6) k/uL RBC 5.57 (4.30-5.90) m/uL Hgb 16.4 (13.0-17.5) gm/dL Hct 49.8 (39.0-53.0) % MCV 89.4 (80.0-100.0) fL MCH 29.4 (25.0-35.0) pg MCHC 32.9 (31.0-37.0) g/dL RDW 13.6 (11.5-15.5) % Plt Count 316 (150-450) k/uL MPV 8.1 Neutrophils % 93 % Lymphocytes % 2 % Monocytes % 4 % Eosinophils % 1 % Basophils % 0 % Neutrophils # 13.8 H (1.3-7.7) k/uL Lymphocytes # 0.4 L (1.0-4.8) k/uL Monocytes # 0.6 (0-1.0) k/uL Eosinophils # 0.1 (0-0.7) k/uL Basophils # 0.1 (0-0.2) k/uL Manual Slide Review Performed Sodium 135 L (137-145) mmol/L Potassium 5.2 H (3.5-5.1) mmol/L Chloride 104 (98-107) mmol/L Carbon Dioxide 19 L (22-30) mmol/L Anion Gap 12 mmol/L BUN 33 H (9-20) mg/dL Creatinine 2.08 H (0.66-1.25) mg/dL Est GFR (CKD-EPI)AfAm 33 (>60 ml/min/1.73 sqM) Est GFR (CKD-EPI)NonAf 29 (>60 ml/min/1.73 sqM) Glucose 285 H (74-99) mg/dL Plasma Lactic Acid Skyler 3.0 H* (0.7-2.0) mmol/L Calcium 9.3 (8.4-10.2) mg/dL Total Bilirubin 0.9 (0.2-1.3) mg/dL AST 30 (17-59) U/L ALT 19 (4-49) U/L Alkaline Phosphatase 100 (38-126) U/L Troponin I (0.000-0.034) ng/mL Total Protein 7.9 (6.3-8.2) g/dL Albumin 4.3 (3.5-5.0) g/dL Amylase 35 (30-110) U/L Lipase 40 (23-300) U/L Urine Color Urine Appearance (Clear) Urine pH (5.0-8.0) Ur Specific [place] (1.001-1.035) Urine Protein (Negative) Urine Glucose (UA) (Negative) Urine Ketones (Negative) Urine Blood (Negative) Urine Nitrite (Negative) Urine Bilirubin (Negative) Urine Urobilinogen (<2.0) mg/dL Ur Leukocyte Esterase (Negative) Urine RBC (0-5) /hpf Urine WBC (0-5) /hpf Ur Squamous Epith Cells (0-4) /hpf Urine Mucus (None) /hpf Acetone, Qual Negative (Negative) 05/13/20 05/13/20 Range/Units 15:00 15:26 WBC (3.8-10.6) k/uL RBC (4.30-5.90) m/uL Hgb (13.0-17.5) gm/dL Hct (39.0-53.0) % MCV (80.0-100.0) fL MCH (25.0-35.0) pg MCHC (31.0-37.0) g/dL RDW (11.5-15.5) % Plt Count (150-450) k/uL MPV Neutrophils % % Lymphocytes % % Monocytes % % Eosinophils % % Basophils % % Neutrophils # (1.3-7.7) k/uL Lymphocytes # (1.0-4.8) k/uL Monocytes # (0-1.0) k/uL Eosinophils # (0-0.7) k/uL Basophils # (0-0.2) k/uL Manual Slide Review Sodium (137-145) mmol/L Potassium (3.5-5.1) mmol/L Chloride (98-107) mmol/L Carbon Dioxide (22-30) mmol/L Anion Gap mmol/L BUN (9-20) mg/dL Creatinine (0.66-1.25) mg/dL Est GFR (CKD-EPI)AfAm (>60 ml/min/1.73 sqM) Est GFR (CKD-EPI)NonAf (>60 ml/min/1.73 sqM) Glucose (74-99) mg/dL Plasma Lactic Acid Skyler (0.7-2.0) mmol/L Calcium (8.4-10.2) mg/dL Total Bilirubin (0.2-1.3) mg/dL AST (17-59) U/L ALT (4-49) U/L Alkaline Phosphatase (38-126) U/L Troponin I <0.012 (0.000-0.034) ng/mL Total Protein (6.3-8.2) g/dL Albumin (3.5-5.0) g/dL Amylase (30-110) U/L Lipase (23-300) U/L Urine Color Yellow Urine Appearance Cloudy (Clear) Urine pH 6.0 (5.0-8.0) Ur Specific [place] 1.026 (1.001-1.035) Urine Protein 3+ H (Negative) Urine Glucose (UA) 4+ H (Negative) Urine Ketones 1+ H (Negative) Urine Blood Moderate H (Negative) Urine Nitrite Negative (Negative) Urine Bilirubin Negative (Negative) Urine Urobilinogen <2.0 (<2.0) mg/dL Ur Leukocyte Esterase Negative (Negative) Urine RBC 3 (0-5) /hpf Urine WBC 30 H (0-5) /hpf Ur Squamous Epith Cells 1 (0-4) /hpf Urine Mucus Rare H (None) /hpf Acetone, Qual (Negative) Critical Care Time Critical Care Time: Yes Total Critical Care Time: 35 Critical Care Time: Total 35 minutes of critical care time used initially evaluated the patient, reviewed possible history or labs, CT, EKG. Patient found to be in atrial flutter with surgeon on a bolus of Cardizem which heart rate is improved. Patient CT shows evidence of small bowel obstruction NG tube was placed patient will consult to surgery. Patient also has evidence of urinary tract infection with lactic acidosis and leukocytosis. Patient given fluid bolus started on maintenance fluids Disposition Clinical Impression: Small bowel obstruction, UTI (urinary tract infection), Hyperglycemia, Atrial flutter Disposition: ADMITTED IP TO THIS HOSP Condition: Serious Referrals: Michael Oneil MD [Primary Care Provider] - 1-2 days
[2020-05-13] MEDS: DILTIAZEM 125 MG in SODIUM CHLORIDE 0.9% 100 ML IV SCH (16:55)
--- NOTE | 2020-05-13 17:01 | CT ---
EXAMINATION TYPE: CT abdomen pelvis wo con DATE OF EXAM: 05/13/2020 COMPARISON: 09/04/2018. HISTORY: abdominal pain and bloating CT DLP: 950 mGycm Automated exposure control for dose reduction was used. TECHNIQUE: Helical acquisition of images was performed from the lung bases through the pelvis. FINDINGS: LUNG BASES: No significant abnormality is appreciated. Cholecystectomy is seen. LIVER/GB: No significant abnormality is appreciated. PANCREAS: No significant abnormality is seen. SPLEEN: No significant abnormality is seen. ADRENALS: No acute abnormality is seen. Nonspecific mild thickening of the left adrenal gland. KIDNEYS: Moderate bilateral renal cortical atrophy. No hydronephrosis or nephrolithiasis. Few simple appearing right renal cyst, measuring up to 1.1 cm. FREE AIR: No free air is visualized RETROPERITONEAL ADENOPATHY: None visualized REPRODUCTIVE ORGANS: No significant abnormality is seen URINARY BLADDER: No significant abnormality is seen. PELVIC ADENOPATHY: None visualized. OSSEOUS STRUCTURES: No significant abnormality is seen. BOWEL: Multiple moderately dilated small bowel loops with transition point seen in the mid lower abd omen. Prior ventral hernia repair is seen. No free air or fluid. Colonic diverticulosis without acute diverticulitis. Small hiatal hernia. Moderate colonic stool. OTHER: Moderate to advanced atherosclerotic disease. IMPRESSION: FINDINGS CONSISTENT WITH PARTIAL DISTAL SMALL BOWEL OBSTRUCTION. NO FREE AIR OR FLUID. COLONIC DIVERTICULOSIS. Prior ventral hernia repair.
[2020-05-13] MEDS ORDERED: NALOXONE 0.4 MG/ML 1 ML VIAL IV PRN (17:33)
[2020-05-13] MEDS ORDERED: ONDANSETRON 4 MG/2 ML VIAL IVP PRN (17:33)
--- NOTE | 2020-05-13 18:27 | XR ---
EXAM: Abdomen radiograph. HISTORY: NG tube placement. TECHNIQUE: Supine AP view. COMPARISON: Same-day CT. FINDINGS: There is insertion of an NG tube with tip overlying the gastric fundus. There are multiple dilated sm all bowel loops consistent with nondominant bowel obstruction. There are no pathologic calcifications . No acute osseous abnormality seen. IMPRESSION: NG tube with tip overlying the gastric fundus. Consider advancing by 3 cm.
[2020-05-13] MEDS ORDERED: LABETALOL 5 MG/ML VIAL MDV IVP STA (19:43)
--- NOTE | 2020-05-13 20:50 | HP ---
HISTORY AND PHYSICAL CHIEF COMPLAINT: Abdominal pain and vomiting. HISTORY OF PRESENT ILLNESS: This is another admission for this 84-year-old white male with a history of hypertension and type 2 diabetes. Several months ago, he had problems with small bowel obstruction. This resolved spontaneously. He stated he over ate a meal today and then developed crampy abdominal pain with dry heaves. He had no fever, chills, diarrhea, melena, etc. He did pass some gas. He came to the emergency room, it was determined he had a small-bowel obstruction. REVIEW OF SYSTEMS: He has had no neurologic problems, difficulty with vision or hearing, chest pain, cough, shortness of breath, chest pain, palpitations, hematemesis, melena, hematochezia, jaundice, renal failure, dysuria, frequency, urgency, hematuria, incontinence. Blood sugars are usually well controlled. Past medical history, family history and personal and social histories are otherwise unremarkable and unchanged. PHYSICAL EXAMINATION: Blood pressure is 141/86 with a pulse of 94 and irregularly irregular. He is afebrile. Respirations were 15. HEENT: Head, ears, eyes, nose, mouth, and throat were normal except for the presence of an NG tube. NECK veins not distended. CHEST is clear. CARDIAC exam at the time of auscultation revealed normal sinus rhythm. ABDOMEN is protuberant, soft and bowel sounds are not heard. There was no significant tenderness. EXTREMITIES: Normal. NEUROLOGICAL is intact. IMPRESSION: He is admitted to the hospital with diagnoses: 1. Small bowel obstruction. 2. Type 2 diabetes. 3. Atrial tachycardia (new). PLAN: 1. Bed rest. 2. IV fluids. 3. Nasogastric tube to suction. 4. N.p.o. 5. Monitor abdominal and laboratory findings with General surgery. MMODL / IJN: [id number] /
[2020-05-14 06:34] LABS: Glucose,Whole Blood 174 mg/dL (75-99)
[2020-05-14] MEDS: SODIUM CHLORIDE 0.9% 1,000 ML IV SCH ×4 (07:06→16:05)
[2020-05-14] MEDS: DILTIAZEM 125 MG in SODIUM CHLORIDE 0.9% 100 ML IV SCH (07:07)
[2020-05-14] MEDS ORDERED: METOPROLOL TARTRATE 25 MG TAB PO SCH (09:00)
[2020-05-14] MEDS: ENALAPRILAT 1.25 MG/ML 1 ML VIAL IVP PRN ×3 (09:07→16:04)
[2020-05-14 10:13] LABS: Basophils % (A) 0 %; Eosinophils % (A) 0 %; HCT 43.8 % (39.0-53.0); HGB 14.2 gm/dL (13.0-17.5); Lymphocytes # (A) 0.6 k/uL (1.0-4.8); Lymphocytes % (A) 5 %; MCH 28.9 pg (25.0-35.0); MCHC 32.3 g/dL (31.0-37.0); MCV 89.4 fL (80.0-100.0); Mean Platelet Volume 6.9; Monocytes # (A) 0.5 k/uL (0-1.0); Monocytes % (A) 4 %; Neutrophils % (A) 90 %; Platelet Count 229 k/uL (150-450); RBC 4.89 m/uL (4.30-5.90); RDW 13.7 % (11.5-15.5); WBC 11.1 k/uL (3.8-10.6)
[2020-05-14 10:21] LABS: Calcium 8.2 mg/dL (8.4-10.2); Potassium 4.8 mmol/L (3.5-5.1)
[2020-05-14] MEDS: amLODIPine 5 MG TAB PO SCH (11:05)
[2020-05-14] MEDS ORDERED: HEPARIN SODIUM,PORCINE 5,000 UNIT/ML 1 ML VIAL IV ONE (11:05)
[2020-05-14] MEDS ORDERED: HEPARIN SODIUM,PORCINE 5,000 UNIT/ML 1 ML VIAL IV PRN (11:05)
--- NOTE | 2020-05-14 11:26 | ECHOF ---
Referral Reason:LV function MEASUREMENTS -------- HEIGHT: 180.3 cm WEIGHT: 98.0 kg BP: 183/78 IVSd: 1.2 cm (0.6 - 1.1) LVIDd: 4.5 cm (3.9 - 5.3) LVPWd: 1.4 cm (0.6 - 1.1) IVSs: 1.9 cm LVIDs: 2.8 cm LVPWs: 1.7 cm LAESV Index (A-L): 30.46 ml/m Ao Diam: 3.4 cm (2.0 - 3.7) AV Cusp: 2.4 cm (1.5 - 2.6) LA Diam: 3.6 cm (2.7 - 3.8) MV EXCURSION: 20.477 mm (> 18.000) MV EF SLOPE: 53 mm/s (70 - 150) EPSS: 1.6 cm MV E Kayode: 0.88 m/s MV DecT: 233 ms MV A Kayode: 0.94 m/s MV E/A Ratio: 0.93 AR PHT: 542 ms RAP: 5.00 mmHg RVSP: 13.38 mmHg FINDINGS -------- Sinus rhythm. This was a technically difficult study with suboptimal views. The left ventricular size is normal. There is mild concentric left ventricular hypertrophy. Overa ll left ventricular systolic function is normal with, an EF between 55 - 60 %. The diastolic fillin g pattern is normal for the age of the patient 10.53. The right ventricle is normal in size. Normal LA size by volume 22+/-6 ml/m2. The right atrial size is normal. Lumason used The aortic valve is trileaflet and appears structurally normal. There is mild aortic regurgitation. The mitral valve leaflets are mildly thickened. Mild mitral regurgitation is present. The tricuspid valve appears structurally normal. Trace tricuspid regurgitation present. Right rigoberto tricular systolic pressure is normal at < 35 mmHg. Trace/mild (physiologic) pulmonic regurgitation. The aortic root size is normal. IVC Not well visulized. There is no pericardial effusion. CONCLUSIONS -------- 1. There is mild concentric left ventricular hypertrophy. 2. Overall left ventricular systolic function is normal with, an EF between 55 - 60 %. 3. The diastolic filling pattern is normal for the age of the patient 10.53 4. Normal LA size by volume 22+/-6 ml/m2. 5. There is mild aortic regurgitation. 6. Mild mitral regurgitation is present. 7. Trace tricuspid regurgitation present. 8. Trace/mild (physiologic) pulmonic regurgitation. 9. There is no pericardial effusion. SHEET METAL CONTRACTOR: Nancy Torrez RDCS
--- NOTE | 2020-05-14 11:27 | P.GSCN ---
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 Patient presents to the emergency room with complaints of abdominal pain and abdominal distention that started Thursday evening after eating supper. He reports that he over ate. He reports that he had been having regular bowel movements. And he has been passing gas. He denies any nausea or vomiting. He was found to have a partial small bowel obstr uction on CAT scan. NG tube was placed in the ER. Through the night patient has had 160 mL of dark greenish fluid. He also had evidence of atrial flutter with rapid response and was placed on Cardizem drip. Cardiology has evaluated patient discontinued Cardizem drip and adjusted cardiac meds and added IV heparin. Patient does report that he has been passing a small amount of gas. PAST MEDICAL HISTORY: See list. PAST SURGICAL HISTORY: See list. MEDICATIONS: See list. ALLERGIES: See list. SOCIAL HISTORY: No illicit drug use. REVIEW OF SYSTEMS: CONSTITUTIONAL: Denies fever or chills. HEENT: Denies blurred vision, vision changes, or eye pain. Denies hemoptysis CARDIOVASCULAR: Denies chest pain or pressure. RESPIRATORY: No shortness of breath. GASTROINTESTINAL: See HPI for pertinent findings HEMATOLOGIC: Denies bleeding disorders. GENITOURINARY: Denies any blood in urine or increased urinary frequency. SKIN: Denies pruitis. Denies rash. PHYSICAL EXAM: VITAL SIGNS: Reviewed GENERAL: Well-developed in no acute distress. HEENT: No sclera icterus. Extraocular movements grossly intact. Moist buccal mucosa. Head is atraumatic, normocephalic. No nasal drainage. ABDOMEN: Soft. Distended. Old surgical incision through the mid abdomen. Nontender NEUROLOGIC: Alert and oriented. Cranial nerves II through XII grossly intact. LABORATORY DATA: WBC down from 15.1-11.1, hemoglobin 14.2 creatinine 2.37 Lactic 3 down to 1.5 IMAGING: Computed tomography scan abdomen and pelvis without contrast shows findings consistent with partial distal small bowel obstruction. No free air or fluid. Colonic diverticulosis. Prior ventral hernia repair Abdominal x-ray NG tube with tip overlying the gastric fundus. Consider advancing by 3 cm. ASSESSMENT: 1. Partial distal small bowel obstruction 2. Prior history of small bowel obstruction treated conservatively 3. Atrial flutter with rapid ventricular response followed by cardiology PLAN: -Continue NG tube for decompression -Nursing staff advancing NG tube -Continue antibiotic -Continue IV fluids -We'll discontinue NG tube in the morning and start clear liquid breakfast Thank you for this consultation Physician Pest Control Technician note has been reviewed by physician. Signing provider agrees with the documented findings, assessment, and plan of care. 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 He is independent. He uses no assistive device. He drives a car. Smoking Status: Former smoker Past Alcohol Use History: None Reported, Rare Additional Past Alcohol Use History / Comment(s): Pt started smoking in 8 1ppd and quit in 1967. Past Drug Use History: None Reported - Past Family History Brother(s) Family Medical History: Diabetes Mellitus Sister(s) Family Medical History: Cancer Mother Family Medical History: Congestive Heart Failure (CHF), Coronary Artery Disease (CAD) Additional Family Medical History / Comment(s): Mother of CHF at age 83 yrs. Father Family Medical History: Myocardial Infarction ([place]) Additional Family Medical History / Comment(s): Father of [place] at age 60 yrs Medications and Allergies Home Medications Medication Instructions Recorded Confirmed Type glipiZIDE [Glucotrol] 5 mg PO AC-SUPPER 02/09/18 05/13/20 History Aspirin EC [Ecotrin Low Dose] 81 mg PO HS 05/13/20 05/13/20 History Atorvastatin [Lipitor] 20 mg PO HS 05/13/20 05/13/20 History Levothyroxine Sodium [Synthroid] 75 mcg PO DAILY 05/13/20 05/13/20 History Losartan [Cozaar] 25 mg PO HS 05/13/20 05/13/20 History glipiZIDE [Glucotrol] 10 mg PO AC-SUPPER 05/13/20 05/13/20 History Allergies Allergy/AdvReac Type Severity Reaction Status Date / Time Iodinated Contrast Media Allergy Mild Rash/Hives Verified 05/13/20 17:40 [Iodinated Contrast Media - IV Dye] Surgical - Exam Vital Signs Temp Pulse Resp BP Pulse Ox 98.7 F 124 H 16 187/98 97 05/13/20 14:39 05/13/20 14:39 05/13/20 14:39 05/13/20 14:39 05/13/20 14:39 Results - Labs 05/14/20 09:41 05/14/20 09:41 Abnormal Lab Results - Last 24 Hours (Table) 05/13/20 05/13/20 05/13/20 Range/Units 15:00 15:00 15:00 WBC 15.0 H (3.8-10.6) k/uL Neutrophils # 13.8 H (1.3-7.7) k/uL Lymphocytes # 0.4 L (1.0-4.8) k/uL Sodium 135 L (137-145) mmol/L Potassium 5.2 H (3.5-5.1) mmol/L Carbon Dioxide 19 L (22-30) mmol/L BUN 33 H (9-20) mg/dL Creatinine 2.08 H (0.66-1.25) mg/dL Glucose 285 H (74-99) mg/dL POC Glucose (mg/dL) (75-99) mg/dL Plasma Lactic Acid Skyler 3.0 H* (0.7-2.0) mmol/L Calcium (8.4-10.2) mg/dL Urine Protein (Negative) Urine Glucose (UA) (Negative) Urine Ketones (Negative) Urine Blood (Negative) Urine WBC (0-5) /hpf Urine Mucus (None) /hpf 05/13/20 05/13/20 05/14/20 Range/Units 15:26 18:25 06:26 WBC (3.8-10.6) k/uL Neutrophils # (1.3-7.7) k/uL Lymphocytes # (1.0-4.8) k/uL Sodium (137-145) mmol/L Potassium (3.5-5.1) mmol/L Carbon Dioxide (22-30) mmol/L BUN (9-20) mg/dL Creatinine (0.66-1.25) mg/dL Glucose (74-99) mg/dL POC Glucose (mg/dL) 174 H (75-99) mg/dL Plasma Lactic Acid Skyler 2.7 H* (0.7-2.0) mmol/L Calcium (8.4-10.2) mg/dL Urine Protein 3+ H (Negative) Urine Glucose (UA) 4+ H (Negative) Urine Ketones 1+ H (Negative) Urine Blood Moderate H (Negative) Urine WBC 30 H (0-5) /hpf Urine Mucus Rare H (None) /hpf 05/14/20 05/14/20 Range/Units 09:41 09:41 WBC 11.1 H (3.8-10.6) k/uL Neutrophils # 10.0 H (1.3-7.7) k/uL Lymphocytes # 0.6 L (1.0-4.8) k/uL Sodium 136 L (137-145) mmol/L Potassium (3.5-5.1) mmol/L Carbon Dioxide (22-30) mmol/L BUN 39 H (9-20) mg/dL Creatinine 2.37 H (0.66-1.25) mg/dL Glucose 174 H (74-99) mg/dL POC Glucose (mg/dL) (75-99) mg/dL Plasma Lactic Acid Skyler (0.7-2.0) mmol/L Calcium 8.2 L (8.4-10.2) mg/dL Urine Protein (Negative) Urine Glucose (UA) (Negative) Urine Ketones (Negative) Urine Blood (Negative) Urine WBC (0-5) /hpf Urine Mucus (None) /hpf Microbiology - Last 24 Hours (Table) 05/13/20 15:26 Urine Culture - Preliminary Urine,Voided Diabetes panel 05/13/20 05/14/20 Range/Units 15:00 09:41 Sodium 135 L 136 L (137-145) mmol/L Potassium 5.2 H 4.8 (3.5-5.1) mmol/L Chloride 104 105 (98-107) mmol/L Carbon Dioxide 19 L 25 (22-30) mmol/L BUN 33 H 39 H (9-20) mg/dL Creatinine 2.08 H 2.37 H (0.66-1.25) mg/dL Glucose 285 H 174 H (74-99) mg/dL Calcium 9.3 8.2 L (8.4-10.2) mg/dL AST 30 (17-59) U/L ALT 19 (4-49) U/L Alkaline Phosphatase 100 (38-126) U/L Total Protein 7.9 (6.3-8.2) g/dL Albumin 4.3 (3.5-5.0) g/dL Calcium panel 05/13/20 05/14/20 Range/Units 15:00 09:41 Calcium 9.3 8.2 L (8.4-10.2) mg/dL Albumin 4.3 (3.5-5.0) g/dL Pituitary panel 05/13/20 05/14/20 Range/Units 15:00 09:41 Sodium 135 L 136 L (137-145) mmol/L Potassium 5.2 H 4.8 (3.5-5.1) mmol/L Chloride 104 105 (98-107) mmol/L Carbon Dioxide 19 L 25 (22-30) mmol/L BUN 33 H 39 H (9-20) mg/dL Creatinine 2.08 H 2.37 H (0.66-1.25) mg/dL Glucose 285 H 174 H (74-99) mg/dL Calcium 9.3 8.2 L (8.4-10.2) mg/dL Adrenal panel 05/13/20 05/14/20 Range/Units 15:00 09:41 Sodium 135 L 136 L (137-145) mmol/L Potassium 5.2 H 4.8 (3.5-5.1) mmol/L Chloride 104 105 (98-107) mmol/L Carbon Dioxide 19 L 25 (22-30) mmol/L BUN 33 H 39 H (9-20) mg/dL Creatinine 2.08 H 2.37 H (0.66-1.25) mg/dL Glucose 285 H 174 H (74-99) mg/dL Calcium 9.3 8.2 L (8.4-10.2) mg/dL Total Bilirubin 0.9 (0.2-1.3) mg/dL AST 30 (17-59) U/L ALT 19 (4-49) U/L Alkaline Phosphatase 100 (38-126) U/L Total Protein 7.9 (6.3-8.2) g/dL Albumin 4.3 (3.5-5.0) g/dL
[2020-05-14 11:35] LABS: Prothrombin Time 10.8 sec (9.0-12.0)
[2020-05-14 11:36] LABS: Partial Thromboplastin Time 23.2 sec (22.0-30.0)
[2020-05-14 12:15] LABS: Glucose,Whole Blood 125 mg/dL (75-99)
--- NOTE | 2020-05-14 12:30 | P.CRDCN ---
History of Present Illness Consult date: 05/14/20 History of present illness: CHIEF COMPLAINT: Atrial flutter HISTORY OF PRESENT ILLNESS: This is a 84-year-old male with a past medical history significant for hypertension, hyperlipidemia, and diabetes mellitus. Patient does not follow with a strategic sourcing specialist. We have been asked to see the patient in consultation for atrial flutter. Patient originally presented to the hospital with abdominal pain. Patient has been diagnosed with a partial small bowel obstruction. He is NG tube in place to low intermittent suction and is a waiting surgery evaluation. EKG upon arrival revealed atrial flutter with RVR. Patient was on IV Cardizem drip which has since been discontinued. He is currently maintaining sinus rhythm with a heart rate in the 80s. He denies chest pain or pressure. Denies shortness of breath. Denies palpitations. DIAGNOSTICS: EKG reveals atrial flutter with RVR Abdominal xray NG tube with tip overlying the gastric fundus. Laboratory data: WBC 11.1. Hemoglobin 14.2. Platelet count 229. Sodium 136. Potassium 4.8. BUN 39. Creatinine 2.37. Current home cardiac medications include losartan 25 mg daily, Lipitor 20 mg daily, aspirin 81 mg daily REVIEW OF SYSTEMS: At the time of my exam: CONSTITUTIONAL: Denies fever or chills. HEENT: Denies blurred vision, vision changes, or eye pain. Denies hemoptysis CARDIOVASCULAR: Denies chest pain, orthopnea, PND or palpitations RESPIRATORY: No shortness of breath. GASTROINTESTINAL: Reports abdominal pain. HEMATOLOGIC: Denies bleeding disorders. GENITOURINARY: Denies any blood in urine. SKIN: Denies pruitis. Denies rash. PHYSICAL EXAM: VITAL SIGNS: Reviewed. GENERAL: Well-developed in no acute distress. HEENT: Head is normocephalic. Pupils are equal, round. Sclerae anicteric. Mucous membranes of the mouth are moist. Neck supple. No JVD or thyromegaly LUNGS: Respirations even and unlabored. Lungs essentially clear to auscultation bilaterally. HEART: Regular rate and rhythm. S1 and S2 heard. ABDOMEN: Soft. Mildly distended. Tenderness with palpation. NG tube to LIS noted. EXTREMITIES: Normal range of motion. No clubbing or cyanosis. Peripheral pulses intact. No lower extremity edema NEUROLOGIC: Awake and alert. Oriented x 3. ASSESSMENT: Partial small bowel obstruction New-onset atypical atrial flutter with RVR, currently maintaining sinus mec hanism Hypertension Hyperlipidemia Diabetes mellitus PLAN: Obtain 2-D echo to assess cardiac structure and function Resume home cardiac medications Begin metoprolol 25 mg twice a day Add Norvasc 5 mg daily Begin IV heparin. Case discussed with Dr. Baptiste. Agreeable to IV heparin and meds to be given via NG tube with NGT to be clamped after administration. Further recommendations pending patient's course Nurse practitioner note has been reviewed by physician. Signing provider agrees with the documented findings, assessment, and plan of care. 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 He is independent. He uses no assistive device. He drives a car. Smoking Status: Former smoker Past Alcohol Use History: None Reported, Rare Additional Past Alcohol Use History / Comment(s): Pt started smoking in 7 1ppd and quit in 1967. Past Drug Use History: None Reported - Past Family History Brother(s) Family Medical History: Diabetes Mellitus Sister(s) Family Medical History: Cancer Mother Family Medical History: Congestive Heart Failure (CHF), Coronary Artery Disease (CAD) Additional Family Medical History / Comment(s): Mother of CHF at age 83 yrs. Father Family Medical History: Myocardial Infarction (NE) Additional Family Medical History / Comment(s): Father of NE at age 60 yrs Medications and Allergies Home Medications Medication Instructions Recorded Confirmed Type glipiZIDE [Glucotrol] 5 mg PO AC-SUPPER 02/09/18 05/13/20 History Aspirin EC [Ecotrin Low Dose] 81 mg PO HS 05/13/20 05/13/20 History Atorvastatin [Lipitor] 20 mg PO HS 05/13/20 05/13/20 History Levothyroxine Sodium [Synthroid] 75 mcg PO DAILY 05/13/20 05/13/20 History Losartan [Cozaar] 25 mg PO HS 05/13/20 05/13/20 History glipiZIDE [Glucotrol] 10 mg PO AC-SUPPER 05/13/20 05/13/20 History Allergies Allergy/AdvReac Type Severity Reaction Status Date / Time Iodinated Contrast Media Allergy Mild Rash/Hives Verified 05/13/20 17:40 [Iodinated Contrast Media - IV Dye] Physical Exam Vitals: Vital Signs Temp Pulse Pulse Resp BP BP Pulse Ox 05/14/20 11:42 98.2 F 80 16 198/89 96 05/14/20 08:00 98.0 F 84 16 198/95 95 05/14/20 04:00 98.5 F 84 16 183/78 96 05/14/20 00:26 177/77 05/13/20 23:58 97.4 F L 86 16 170/78 95 05/13/20 21:54 174/79 05/13/20 21:33 97.5 F L 91 16 93 L 05/13/20 20:32 213/91 05/13/20 20:00 16 05/13/20 19:39 97.7 F 91 18 204/82 93 L 05/13/20 18:15 98.7 F 72 18 161/89 96 05/13/20 18:00 72 18 161/89 96 05/13/20 17:00 78 18 143/69 96 05/13/20 16:42 96 18 168/78 96 05/13/20 15:42 18 05/13/20 14:39 98.7 F 124 H 16 187/98 97 Intake and Output 05/13/20 05/14/20 05/14/20 22:59 06:59 14:59 Output Total 400 300 Balance -400 -300 Output: Urine 400 300 Other: Voiding Method Urinal Urinal # Voids 2 Weight 97.522 kg 98.3 kg Results 05/14/20 09:41 05/14/20 09:41 Cardiac Enzymes 05/13/20 05/13/20 Range/Units 15:00 15:00 AST 30 (17-59) U/L Troponin I <0.012 (0.000-0.034) ng/mL Coagulation 05/14/20 Range/Units 09:41 PT 10.8 (9.0-12.0) sec APTT 23.2 (22.0-30.0) sec CBC 05/13/20 05/14/20 Range/Units 15:00 09:41 WBC 15.0 H 11.1 H (3.8-10.6) k/uL RBC 5.57 4.89 (4.30-5.90) m/uL Hgb 16.4 14.2 (13.0-17.5) gm/dL Hct 49.8 43.8 (39.0-53.0) % Plt Count 316 229 (150-450) k/uL Comprehensive Metabolic Panel 05/13/20 05/14/20 Range/Units 15:00 09:41 Sodium 135 L 136 L (137-145) mmol/L Potassium 5.2 H 4.8 (3.5-5.1) mmol/L Chloride 104 105 (98-107) mmol/L Carbon Dioxide 19 L 25 (22-30) mmol/L BUN 33 H 39 H (9-20) mg/dL Creatinine 2.08 H 2.37 H (0.66-1.25) mg/dL Glucose 285 H 174 H (74-99) mg/dL Calcium 9.3 8.2 L (8.4-10.2) mg/dL AST 30 (17-59) U/L ALT 19 (4-49) U/L Alkaline Phosphatase 100 (38-126) U/L Total Protein 7.9 (6.3-8.2) g/dL Albumin 4.3 (3.5-5.0) g/dL Current Medications Generic Name Dose Route Start Last Admin Trade Name Freq PRN Reason Stop Dose Admin Amlodipine Besylate 5 mg 05/14/20 11:00 05/14/20 11:05 Amlodipine 5 Mg Tab PO 5 mg DAILY DONNIE Administration Atorvastatin Calcium 20 mg 05/14/20 21:00 Atorvastatin 20 Mg Tab PO HS DONNIE Enalaprilat 2.5 mg 05/13/20 19:44 05/14/20 09:07 Enalaprilat 1.25 Mg/Ml 1 Ml Vial IVP 2.5 mg Q6HR PRN Administration Blood Pressure - High Heparin Sodium (Porcine) 0 unit 05/14/20 11:05 Heparin Sodium,Porcine 5,000 Unit/Ml 1 Ml Vial IV PER PROTOCOL PRN Low PTT Protocol Sodium Chloride 1,000 mls @ 130 mls/hr 05/13/20 17:45 05/14/20 07:06 Saline 0.9% IV Not Given .Q7H42M [facility] Heparin Sodium/Sodium Chloride 250 mls @ 9.83 mls/hr 05/14/20 11:15 25,000 unit/ Sodium Chloride IV .Q24H [facility] Protocol 10 UNITS/KG/HR Ceftriaxone Sodium 1 gm/ 50 mls @ 100 mls/hr 05/14/20 11:30 Sodium Chloride IVPB Q24HR [facility] Losartan Potassium 25 mg 05/14/20 21:00 Losartan 25 Mg Tab PO HS [facility] Metoprolol Tartrate 25 mg 05/14/20 09:00 05/14/20 11:05 Metoprolol Tartrate 25 Mg Tab PO 25 mg BID [facility] Administration Naloxone HCl 0.2 mg 05/13/20 17:33 Naloxone 0.4 Mg/Ml 1 Ml Vial IV Q2M PRN Opioid Reversal Ondansetron HCl 4 mg 05/13/20 17:33 Ondansetron 4 Mg/2 Ml Vial IVP Q8HR PRN Nausea And Vomiting Intake and Output 05/13/20 05/14/20 05/14/20 22:59 06:59 14:59 Output Total 400 300 Balance -400 -300 Output: Urine 400 300 Other: Voiding Method Urinal Urinal # Voids 2 Weight 97.522 kg 98.3 kg 05/14/20 09:41 05/14/20 09:41
[2020-05-14] MEDS: HEPARIN SOD,PORK IN 0.45% NACL 25,000 UNIT in 0.45% NACL 1 250ML.BAG IV SCH (12:45)
[2020-05-14 16:39] LABS: Glucose,Whole Blood 139 mg/dL (75-99)
[2020-05-14] MEDS: hydrALAZINE HCL 20 MG/ML 1 ML VIAL IVP PRN ×2 (16:42→21:36)
--- NOTE | 2020-05-14 18:31 | PN ---
PROGRESS NOTE DATE OF SERVICE: 05/14/2020 CHIEF COMPLAINT: Bowel obstruction. HISTORY OF PRESENT ILLNESS: This gentleman is stable. Vital signs are stable. He has not had a great deal of pain and he has not passed any stool or gas. PHYSICAL EXAMINATION: His chest is clear. Cardiac exam is normal. The abdomen is slightly protuberant and he has mild generalized tenderness throughout. Bowel sounds are absent. IMPRESSION: 1. Small-bowel obstruction. 2. Hypertension. 3. Diabetes. PLAN: Continue conservative management for the time being. He is being followed by Surgery. MMODL / IJN: [id number] /
[2020-05-14 20:49] LABS: Glucose,Whole Blood 157 mg/dL (75-99)
[2020-05-14] MEDS ORDERED: LOSARTAN 25 MG TAB PO SCH (21:00)
--- NOTE | 2020-05-14 21:04 | XR ---
EXAMINATION TYPE: XR chest 1V DATE OF EXAM: 05/14/2020 COMPARISON: NONE HISTORY: Check tube placement TECHNIQUE: Kris view FINDINGS: Heart and mediastinum are within normal limits for age. There is no heart failure. Lungs ar e clear of consolidation. There are chest leads. There is nasogastric tube with the tip close to the gastroesophageal junction. IMPRESSION: The tip of the NG tube is close to the gastroesophageal junction.
--- NOTE | 2020-05-14 21:51 | XR ---
EXAMINATION TYPE: XR chest 1V DATE OF EXAM: 05/14/2020 COMPARISON: 05/14/2020 HISTORY: Check tube placement TECHNIQUE: Single view FINDINGS: There is nasogastric tube that appears to have the tip in the gastric antrum. The body of t he stomach is in the midline. There are some mildly distended gas-filled small bowel loops in the upp er abdomen. The lung bases are clear of consolidation. There is normal-appearing air in the hepatic flexure of the colon. IMPRESSION: NG tube is in the distal stomach. There are some gas-filled small bowel loops that could relate to ileus.
[2020-05-14] MEDS: METOPROLOL TARTRATE 50 MG TAB PO SCH (23:39)
[2020-05-14] MEDS: ATORVASTATIN 20 MG TAB PO SCH (23:40)
[2020-05-14] MEDS: LOSARTAN 50 MG TAB PO SCH (23:40)
[2020-05-15] MEDS: SODIUM CHLORIDE 0.9% 1,000 ML IV SCH ×3 (04:23→16:28)
[2020-05-15 08:23] LABS: Basophils % (A) 0 %; Eosinophils % (A) 0 %; HCT 44.1 % (39.0-53.0); HGB 14.6 gm/dL (13.0-17.5); Lymphocytes # (A) 0.8 k/uL (1.0-4.8); Lymphocytes % (A) 6 %; MCH 29.7 pg (25.0-35.0); MCV 89.8 fL (80.0-100.0); Mean Platelet Volume 7.1; Monocytes # (A) 0.6 k/uL (0-1.0); Monocytes % (A) 5 %; Neutrophils # (A) 10.9 k/uL (1.3-7.7); Neutrophils % (A) 88 %; Platelet Count 250 k/uL (150-450); RBC 4.91 m/uL (4.30-5.90); RDW 13.7 % (11.5-15.5); WBC 12.4 k/uL (3.8-10.6)
[2020-05-15] MEDS: amLODIPine 5 MG TAB PO SCH (09:22)
[2020-05-15] MEDS: METOPROLOL TARTRATE 50 MG TAB PO SCH ×2 (09:22→19:41)
--- NOTE | 2020-05-15 10:47 | P.PN ---
Subjective Progress Note Date: 05/15/20 CHIEF COMPLAINT: Abdominal pain HISTORY OF PRESENT ILLNESS: Patient is being followed for a partial distal small bowel obstruction. Apparently the NG tube came out accidentally during the night. Patient started having vomiting. NG tube had to be reinserted. Patient has had a large amount of dark fluid through NG tube. He denies any pain. Afebrile. WBC 12.4 PHYSICAL EXAM: VITAL SIGNS: Reviewed. GENERAL: Well-developed in no acute distress. HEENT: No sclera icterus. Extraocular movements grossly intact. Moist buccal mucosa. Head is atraumatic, normocephalic. ABDOMEN: Soft. Mildly distended. Nontender NEUROLOGIC: Alert and oriented. Cranial nerves II through XII grossly intact. ASSESSMENT: 1. Partial distal small bowel obstruction 2. Prior history of small bowel obstruction treated conservatively 3. Atrial flutter with rapid ventricular response followed by cardiology PLAN: -Keep NG tube for decompression -Continue IV fluids -Continue prophylactic antibiotic -Currently anticoagulated with IV heparin for his atrial flutter Physician Instrumentation And Controls Designer note has been reviewed by physician. Signing provider agrees with the documented findings, assessment, and plan of care. Objective - Vital Signs Vital signs: Vital Signs Temp 98.4 F 05/15/20 08:00 Pulse 76 05/15/20 08:00 Resp 18 05/15/20 08:00 BP 142/96 05/15/20 08:00 Pulse Ox 95 05/15/20 08:00 Intake & Output 05/14/20 05/15/20 05/15/20 18:59 06:59 18:59 Intake Total 890 Output Total 300 1220 Balance 590 -1220 Intake: Intake, IV Titration 890 Amount Heparin Sod,Pork in 0.45% 40 NaCl 25,000 unit In 0.45 % NaCl 1 250ml.bag @ 10 UNITS/KG/HR 9.83 mls/hr IV .Q24H [facility]NIE Rx#: [id number] Sodium Chloride 0.9% 1, 800 000 ml @ 130 mls/hr IV . Q7H42M DONNIE Rx#:[id number] cefTRIAXone 1 gm In 50 Sodium Chloride 0.9% 50 ml @ 100 mls/hr IVPB Q24HR [facility] Rx#:[id number] Oral 0 Output: Gastric Drainage 520 Urine 300 700 Other: Voiding Method Urinal Urinal - Labs CBC & Chem 7: 05/15/20 07:26 05/14/20 09:41 Labs: Abnormal Lab Results - Last 24 Hours (Table) 05/14/20 05/14/20 05/14/20 Range/Units 12:14 16:38 17:07 WBC (3.8-10.6) k/uL Neutrophils # (1.3-7.7) k/uL Lymphocytes # (1.0-4.8) k/uL APTT 60.9 H (22.0-30.0) sec POC Glucose (mg/dL) 125 H 139 H (75-99) mg/dL 05/14/20 05/15/20 05/15/20 Range/Units 20:48 07:26 07:26 WBC 12.4 H (3.8-10.6) k/uL Neutrophils # 10.9 H (1.3-7.7) k/uL Lymphocytes # 0.8 L (1.0-4.8) k/uL APTT 57.4 H (22.0-30.0) sec POC Glucose (mg/dL) 157 H (75-99) mg/dL Microbiology - Last 24 Hours (Table) 05/13/20 16:31 Blood Culture - Preliminary Blood No Growth after 24 hours 05/13/20 15:26 Urine Culture - Final Urine,Voided
[2020-05-15] MEDS: HEPARIN SOD,PORK IN 0.45% NACL 25,000 UNIT in 0.45% NACL 1 250ML.BAG IV SCH (13:54)
--- NOTE | 2020-05-15 15:21 | P.PN ---
Subjective Progress Note Date: 05/15/20 CHIEF COMPLAINT: Atrial flutter HISTORY OF PRESENT ILLNESS: 05/14/2020 This is a 84-year-old male with a past medical history significant for hypertension, hyperlipidemia, and diabetes mellitus. Patient does not follow with a wireless watcher. We have been asked to see the patient in consultation for atrial flutter. Patient originally presented to the hospital with abdominal pain. Patient has been diagnosed with a partial small bowel obstruction. He is NG tube in place to low intermittent suction and is awaiting surgery evaluation. EKG upon arrival revealed atrial flutter with RVR. Patient was on IV Cardizem drip which has since been discontinued. He is currently maintaining sinus rhythm with a heart rate in the 80s. He denies chest pain or pressure. Denies shortness of breath. Denies palpitations. 05/15/2020 Patient examined at the bedside. He denies chest pain or pressure. Denies shortness of breath. He remains in sinus rhythm. He remains on IV heparin. He continues to have an NG tube to low intermittent suction. He is being followed by general surgery. Echocardiogram completed revealed ejection fraction 55-60%, mild aortic regurgitation, mild mitral regurgitation, and restrict us regurgitation. PHYSICAL EXAM: VITAL SIGNS: Reviewed. GENERAL: Well-developed in no acute distress. HEENT: Head is normocephalic. Pupils are equal, round. Sclerae anicteric. Mucous membranes of the mouth are moist. Neck supple. No JVD or thyromegaly LUNGS: Respirations even and unlabored. Lungs essentially clear to auscultation bilaterally. HEART: Regular rate and rhythm. S1 and S2 heard. ABDOMEN: Soft. Mildly distended. Tenderness with palpation. NG tube to LIS noted. EXTREMITIES: Normal range of motion. No clubbing or cyanosis. Peripheral pulses intact. No lower extremity edema NEUROLOGIC: Awake and alert. Oriented x 3. ASSESSMENT: Partial small bowel obstruction New-onset atypical atrial flutter with RVR, currently maintaining sinus mechanism Hypertension Hyperlipidemia Diabetes mellitus PLAN: Continue current cardiac medications Continue IV heparin. Will transition to oral anticoagulation when final decision is made from general surgery regarding surgical intervention Further recommendations pending patient's course Nurse practitioner note has been reviewed by physician. Signing provider agrees with the documented findings, assessment, and plan of care. Objective - Vital Signs Vital signs: Vital Signs Temp 98.4 F 05/15/20 08:00 Pulse 76 05/15/20 14:38 Resp 16 05/15/20 14:38 BP 156/85 05/15/20 12:00 Pulse Ox 94 L 05/15/20 12:00 Intake & Output 05/14/20 05/15/20 05/15/20 18:59 06:59 18:59 Intake Total 890 247.225 Output Total 300 1220 Balance 590 -1220 247.225 Intake: Intake, IV Titration 890 247.225 Amount Heparin Sod,Pork in 0.45% 40 247.225 NaCl 25,000 unit In 0.45 % NaCl 1 250ml.bag @ 10 UNITS/KG/HR 9.83 mls/hr IV .Q24H [facility] Rx#: [id number] Sodium Chloride 0.9% 1, 800 000 ml @ 130 mls/hr IV . Q7H42M [facility] Rx#:[id number] cefTRIAXone 1 gm In 50 Sodium Chloride 0.9% 50 ml @ 100 mls/hr IVPB Q24HR [facility] Rx#:[id number] Oral 0 Output: Gastric Drainage 520 Urine 300 700 Other: Voiding Method Urinal Urinal - Labs CBC & Chem 7: 05/15/20 07:26 05/14/20 09:41 Labs: Abnormal Lab Results - Last 24 Hours (Table) 05/14/20 05/14/20 05/14/20 Range/Units 16:38 17:07 20:48 WBC (3.8-10.6) k/uL Neutrophils # (1.3-7.7) k/uL Lymphocytes # (1.0-4.8) k/uL APTT 60.9 H (22.0-30.0) sec POC Glucose (mg/dL) 139 H 157 H (75-99) mg/dL 05/15/20 05/15/20 Range/Units 07:26 07:26 WBC 12.4 H (3.8-10.6) k/uL Neutrophils # 10.9 H (1.3-7.7) k/uL Lymphocytes # 0.8 L (1.0-4.8) k/uL APTT 57.4 H (22.0-30.0) sec POC Glucose (mg/dL) (75-99) mg/dL Microbiology - Last 24 Hours (Table) 05/13/20 16:31 Blood Culture - Preliminary Blood No Growth after 24 hours 05/13/20 15:26 Urine Culture - Final Urine,Voided
--- NOTE | 2020-05-15 18:17 | PN ---
PROGRESS NOTE CHIEF COMPLAINT: Small bowel obstruction. HISTORY OF PRESENT ILLNESS: This gentleman is doing reasonably well. His abdominal pain was under good control and he was passing small amounts of gas. During the night he apparently coughed and the NG tube came out. It was thought to leave it out, but then he developed fairly severe abdominal pain and it was replaced. PHYSICAL EXAMINATION: Chest is clear. The cardiac exam is normal. The abdomen remains protuberant. Bowel sounds are not heard. IMPRESSION: 1. Small-bowel obstruction. 2. Hypertension. 3. Diabetes. PLAN: Continue with conservative management and follow with Surgery. MMODL / IJN: [id number] /
[2020-05-15] MEDS: LOSARTAN 50 MG TAB PO SCH (19:41)
[2020-05-15] MEDS: ATORVASTATIN 20 MG TAB PO SCH (19:41)
[2020-05-15 20:53] LABS: Glucose,Whole Blood 157 mg/dL (75-99)
[2020-05-15] MEDS: hydrALAZINE HCL 20 MG/ML 1 ML VIAL IVP PRN (20:53)
[2020-05-15] MEDS: ENALAPRILAT 1.25 MG/ML 1 ML VIAL IVP PRN (22:53)
[2020-05-16] MEDS: hydrALAZINE HCL 20 MG/ML 1 ML VIAL IVP PRN (03:05)
[2020-05-16] MEDS: SODIUM CHLORIDE 0.9% 1,000 ML IV SCH ×3 (04:09→15:21)
[2020-05-16 05:48] LABS: Glucose,Whole Blood 154 mg/dL (75-99)
[2020-05-16] MEDS: ENALAPRILAT 1.25 MG/ML 1 ML VIAL IVP PRN (06:40)
[2020-05-16 08:14] LABS: Basophils % (A) 0 %; Eosinophils % (A) 0 %; HCT 46.4 % (39.0-53.0); HGB 15.4 gm/dL (13.0-17.5); Lymphocytes # (A) 0.6 k/uL (1.0-4.8); Lymphocytes % (A) 6 %; MCH 29.7 pg (25.0-35.0); MCHC 33.1 g/dL (31.0-37.0); MCV 89.5 fL (80.0-100.0); Mean Platelet Volume 7.1; Monocytes # (A) 0.7 k/uL (0-1.0); Monocytes % (A) 7 %; Neutrophils # (A) 9.1 k/uL (1.3-7.7); Neutrophils % (A) 86 %; Platelet Count 249 k/uL (150-450); RBC 5.19 m/uL (4.30-5.90); RDW 13.8 % (11.5-15.5); WBC 10.6 k/uL (3.8-10.6)
[2020-05-16 09:28] LABS: Calcium 8.3 mg/dL (8.4-10.2); Potassium 4.4 mmol/L (3.5-5.1)
[2020-05-16] MEDS ORDERED: hydrALAZINE HCL 25 MG TAB PO SCH (10:00)
[2020-05-16] MEDS ORDERED: hydrALAZINE HCL 50 MG TAB PO SCH (10:00)
[2020-05-16] MEDS: METOPROLOL TARTRATE 50 MG TAB PO SCH ×2 (10:09→20:48)
[2020-05-16] MEDS: amLODIPine 10 MG TAB PO SCH (10:09)
--- NOTE | 2020-05-16 11:02 | P.PN ---
Subjective Progress Note Date: 05/16/20 CHIEF COMPLAINT: Abdominal pain HISTORY OF PRESENT ILLNESS: Patient is being followed for a partial distal small bowel obstruction. Patient denies any abdominal pain. He is passing gas. Denies any bowel movement. Afebrile. WBC 10.6 patient has been having elevated blood pressures. PHYSICAL EXAM: VITAL SIGNS: Reviewed. GENERAL: Well-developed in no acute distress. HEENT: No sclera icterus. Extraocular movements grossly intact. Moist buccal mucosa. Head is atraumatic, normocephalic. ABDOMEN: Soft. Mildly distended. Nontender NEUROLOGIC: Alert and oriented. Cranial nerves II through XII grossly intact. ASSESSMENT: 1. Partial distal small bowel obstruction, resolving 2. Prior history of small bowel obstruction treated conservatively 3. Atrial flutter with rapid ventricular response followed by cardiology PLAN: -Discontinue NG tube -Start patient on clear liquid diet -Continue antibiotic -Currently anticoagulated with IV heparin for his atrial flutter -Recommend to hold off on starting oral anticoagulation for now. Need to make sure patient is tolerating diet first Physician Teacher Aide note has been reviewed by physician. Signing provider agrees with the documented findings, assessment, and plan of care. Objective - Vital Signs Vital signs: Vital Signs Temp 97.5 F L 05/16/20 08:00 Pulse 79 05/16/20 08:45 Resp 18 05/16/20 08:45 BP 188/86 05/16/20 08:00 Pulse Ox 95 05/16/20 08:00 Intake & Output 05/15/20 05/16/20 05/16/20 18:59 06:59 18:59 Intake Total 247.225 Output Total 300 700 Balance -52.775 -700 Intake: Intake, IV Titration 247.225 Amount Heparin Sod,Pork in 0.45% 247.225 NaCl 25,000 unit In 0.45 % NaCl 1 250ml.bag @ 10 UNITS/KG/HR 9.83 mls/hr IV .Q24H DONNIE Rx#: [id number] Output: Gastric Drainage 700 Urine 300 Other: Voiding Method Urinal Urinal - Labs CBC & Chem 7: 05/16/20 07:42 05/16/20 07:42 Labs: Abnormal Lab Results - Last 24 Hours (Table) 05/15/20 05/16/20 05/16/20 Range/Units 20:51 05:47 07:42 Neutrophils # 9.1 H (1.3-7.7) k/uL Lymphocytes # 0.6 L (1.0-4.8) k/uL APTT (22.0-30.0) sec Chloride (98-107) mmol/L Carbon Dioxide (22-30) mmol/L BUN (9-20) mg/dL Creatinine (0.66-1.25) mg/dL Glucose (74-99) mg/dL POC Glucose (mg/dL) 157 H 154 H (75-99) mg/dL Calcium (8.4-10.2) mg/dL 05/16/20 05/16/20 Range/Units 07:42 07:42 Neutrophils # (1.3-7.7) k/uL Lymphocytes # (1.0-4.8) k/uL APTT 63.7 H (22.0-30.0) sec Chloride 113 H (98-107) mmol/L Carbon Dioxide 21 L (22-30) mmol/L BUN 54 H (9-20) mg/dL Creatinine 2.11 H (0.66-1.25) mg/dL Glucose 183 H (74-99) mg/dL POC Glucose (mg/dL) (75-99) mg/dL Calcium 8.3 L (8.4-10.2) mg/dL Microbiology - Last 24 Hours (Table) 05/13/20 16:31 Blood Culture - Preliminary Blood No Growth after 48 hours
[2020-05-16] MEDS ORDERED: cloNIDine 0.1 MG/24HR PATCH TRANSDERM SCH (11:30)
[2020-05-16 12:20] LABS: Glucose,Whole Blood 152 mg/dL (75-99)
[2020-05-16] MEDS: HEPARIN SOD,PORK IN 0.45% NACL 25,000 UNIT in 0.45% NACL 1 250ML.BAG IV SCH (12:21)
--- NOTE | 2020-05-16 14:26 | P.PN ---
Subjective Progress Note Date: 05/16/20 CHIEF COMPLAINT: Atrial flutter HISTORY OF PRESENT ILLNESS: 05/14/2020 This is a 84-year-old male with a past medical history significant for hypertension, hyperlipidemia, and diabetes mellitus. 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 We have been asked to see the patient in consultation for atrial flutter. Patient originally presented to the hospital with abdominal pain. Patient has been diagnosed with a partial small bowel obstruction. He is NG tube in place to low intermittent suction and is awaiting surgery evaluation. EKG upon arrival revealed atrial flutter with RVR. Patient was on IV Cardizem drip which has since been discontinued. He is currently maintaining sinus rhythm with a heart rate in the 80s. He denies chest pain or pressure. Denies shortness of breath. Denies palpitations. 05/15/2020 Patient examined at the bedside. He denies chest pain or pressure. Denies shortness of breath. He remains in sinus rhythm. He remains on IV heparin. He continues to have an NG tube to low intermittent suction. He is being followed by general surgery. Echocardiogram completed revealed ejection fraction 55-60%, mild aortic regurgitation, mild mitral regurgitation, and restrict us regurgitation. 05/16/2020 Patient examined at the bedside. Patient states he is passing flatus. NG tube is to be discontinued and patient will be started on a clear liquid diet per general surgery. Patient remains on IV heparin. He remains in sinus mechanism per telemetry. Patient's blood pressure remains significantly elevated with a systolic in the 180s. PHYSICAL EXAM: VITAL SIGNS: Reviewed. GENERAL: Well-developed in no acute distress. HEENT: Head is normocephalic. Pupils are equal, round. Sclerae anicteric. Mucous membranes of the mouth are moist. Neck supple. No JVD or thyromegaly LUNGS: Respirations even and unlabored. Lungs essentially clear to auscultation bilaterally. HEART: Regular rate and rhythm. S1 and S2 heard. ABDOMEN: Soft. Nondistended. EXTREMITIES: Normal range of motion. No clubbing or cyanosis. Peripheral pulses intact. No lower extremity edema NEUROLOGIC: Awake and alert. Oriented x 3. ASSESSMENT: Partial small bowel obstruction New-onset atypical atrial flutter with RVR, currently maintaining sinus mechanism Hypertension Hyperlipidemia Diabetes mellitus PLAN: Continue current cardiac medications Patient's bowel obstruction appears to be resolving with conservative management. Patient is to be started on a diet today. Will continue IV heparin at this time to ensure that patient's obstruction has resolved and he is able to tolerate diet. Once patient is tolerating diet we will transition him to oral anticoagulation Increase Norvasc to 10 mg daily Add Catapres patch 0.1 mg Further recommendations pending patient's course Nurse practitioner note has been reviewed by physician. Signing provider agrees with the documented findings, assessment, and plan of care. Objective - Vital Signs Vital signs: Vital Signs Temp 97.8 F 05/16/20 11:59 Pulse 66 05/16/20 11:59 Resp 16 05/16/20 11:59 BP 181/81 05/16/20 11:59 Pulse Ox 95 05/16/20 11:59 Intake & Output 05/15/20 05/16/20 05/16/20 18:59 06:59 18:59 Intake Total 247.225 Output Total 300 700 Balance -52.775 -700 Intake: Intake, IV Titration 247.225 Amount Heparin Sod,Pork in 0.45% 247.225 NaCl 25,000 unit In 0.45 % NaCl 1 250ml.bag @ 10 UNITS/KG/HR 9.83 mls/hr IV .Q24H [facility] Rx#: [id number] Output: Gastric Drainage 700 Urine 300 Other: Voiding Method Urinal Urinal - Labs CBC & Chem 7: 05/16/20 07:42 05/16/20 07:42 Labs: Abnormal Lab Results - Last 24 Hours (Table) 05/15/20 05/16/20 05/16/20 Range/Units 20:51 05:47 07:42 Neutrophils # 9.1 H (1.3-7.7) k/uL Lymphocytes # 0.6 L (1.0-4.8) k/uL APTT (22.0-30.0) sec Chloride (98-107) mmol/L Carbon Dioxide (22-30) mmol/L BUN (9-20) mg/dL Creatinine (0.66-1.25) mg/dL Glucose (74-99) mg/dL POC Glucose (mg/dL) 157 H 154 H (75-99) mg/dL Calcium (8.4-10.2) mg/dL 05/16/20 05/16/20 05/16/20 Range/Units 07:42 07:42 12:18 Neutrophils # (1.3-7.7) k/uL Lymphocytes # (1.0-4.8) k/uL APTT 63.7 H (22.0-30.0) sec Chloride 113 H (98-107) mmol/L Carbon Dioxide 21 L (22-30) mmol/L BUN 54 H (9-20) mg/dL Creatinine 2.11 H (0.66-1.25) mg/dL Glucose 183 H (74-99) mg/dL POC Glucose (mg/dL) 152 H (75-99) mg/dL Calcium 8.3 L (8.4-10.2) mg/dL Microbiology - Last 24 Hours (Table) 05/13/20 16:31 Blood Culture - Preliminary Blood No Growth after 48 hours
--- NOTE | 2020-05-16 14:51 | CDI ---
Documentation Clarification Form Date: 05/16/2020 02:39:49 PM From: Kati Vigil CCS, CCDS Admit Date: 05/13/2020 05:33:00 PM Patient Name: Saud Farley Visit Number: [id number] Discharge Date: ATTENTION: The Clinical Documentation Specialists (CDI) and [facility] Coding Staff appreciate your assistance in clarifying documentation. Please respond to the clarification below the line at the bottom and electronically sign. The CDI & [facility] Coding staff will review the response and follow-up if needed. Please note: Queries are made part of the Legal Health Record. If you have any questions, please contact the author of this message via ITS. Dr. Michael Oneil: Chronic Kidney Failure is documented in the Surgical Consult's Patient History without further specification. History/Risk Factors: NIDDM, Hyperlipidemia, Hypertension, OA, Hypothyroid, Esophageal Stricture with Dilation, PVD, Colitis, Stenosis of Left Carotid Artery. Former smoker. Clinical Indicators: Patient presented to the ED on 05/13 with abnormal labs, elevated blood sugar & high blood pressure, abdomen distended & bloated. Admit with a partial SBO and UTI. Current BUN/CR/GFR: BUN 54^, Creatinine 2.11, GFR 33 - 28 Previous GFR 03/18/2017: 38 - 46 Home meds: Aspirin, Synthroid, Verapamil, Glucotrol, Lipitor, Lasix, Pepcid. Allergic to Contrast Dye Treatment 05/13: IV fluid 1,000 mls @ 999 mls/hr q1, IV Zofran, IV Rocephin, IV Cardizem Drip Bolus, IV fluid rate 1,000 mls @ 130 mls/hr q8, IV Trandate, IV Vasotec, IV Heparin added 05/14. Consults [summarize product development consultant's findings]: In order to capture the severity of condition, please clarify the stage of the CKD, if known: CKD Stage 3a (GFR 45-59) CKD Stage 3b (GFR 30-44) CKD Stage 4 (GFR 15-29) Other, please specify Unable to determine [Template Last reviewed: December 2019] MTDD
[2020-05-16 16:50] LABS: Glucose,Whole Blood 175 mg/dL (75-99)
--- NOTE | 2020-05-16 17:26 | PN ---
PROGRESS NOTE CHIEF COMPLAINT: Small bowel obstruction. HISTORY OF PRESENT ILLNESS: This gentleman is doing well. He is passing gas and he has had a bowel movement. His bowel activity is not quite back to normal. He is not having any pain. PHYSICAL EXAMINATION: Chest is clear. Cardiac exam is normal. Abdomen is soft and nontender and slightly protuberant. Bowel sounds are scant. Extremities are normal. IMPRESSION: 1. Partial or incomplete and resolving small-bowel obstruction. 2. Type 2 diabetes. 3. Hypertension. PLAN: 1. Antihypertensives moving them to oral. 2. His activity and diet are being advanced. MMODL / IJN: [id number] /
[2020-05-16] MEDS: hydrALAZINE HCL 50 MG TAB PO SCH ×2 (17:34→20:48)
[2020-05-16] MEDS: LOSARTAN 50 MG TAB PO SCH (17:34)
[2020-05-16] MEDS: ATORVASTATIN 20 MG TAB PO SCH (20:48)
[2020-05-16 21:01] LABS: Glucose,Whole Blood 222 mg/dL (75-99)
[2020-05-16] MEDS: amLODIPine 5 MG TAB PO SCH (21:26)
[2020-05-17] MEDS: SODIUM CHLORIDE 0.9% 1,000 ML IV SCH ×4 (00:13→19:35)
[2020-05-17 06:25] LABS: Glucose,Whole Blood 110 mg/dL (75-99)
[2020-05-17] MEDS: HEPARIN SOD,PORK IN 0.45% NACL 25,000 UNIT in 0.45% NACL 1 250ML.BAG IV SCH (06:47)
[2020-05-17 08:10] LABS: Basophils % (A) 0 %; Eosinophils % (A) 0 %; HCT 40.4 % (39.0-53.0); HGB 13.1 gm/dL (13.0-17.5); Lymphocytes # (A) 0.8 k/uL (1.0-4.8); Lymphocytes % (A) 11 %; MCH 29.2 pg (25.0-35.0); MCHC 32.4 g/dL (31.0-37.0); MCV 90.3 fL (80.0-100.0); Monocytes # (A) 0.7 k/uL (0-1.0); Monocytes % (A) 9 %; Neutrophils # (A) 6.1 k/uL (1.3-7.7); Neutrophils % (A) 78 %; Platelet Count 223 k/uL (150-450); RBC 4.48 m/uL (4.30-5.90); RDW 13.8 % (11.5-15.5); WBC 7.7 k/uL (3.8-10.6)
[2020-05-17] MEDS: hydrALAZINE HCL 50 MG TAB PO SCH ×3 (09:17→19:35)
[2020-05-17] MEDS: LOSARTAN 50 MG TAB PO SCH (09:17)
[2020-05-17] MEDS: METOPROLOL TARTRATE 50 MG TAB PO SCH ×2 (09:18→19:35)
[2020-05-17] MEDS: amLODIPine 10 MG TAB PO SCH (09:18)
[2020-05-17 12:27] LABS: Glucose,Whole Blood 177 mg/dL (75-99)
--- NOTE | 2020-05-17 14:05 | P.PN ---
Subjective Progress Note Date: 05/17/20 CHIEF COMPLAINT: Atrial flutter HISTORY OF PRESENT ILLNESS: 05/14/2020 This is a 84-year-old male with a past medical history significant for hypertension, hyperlipidemia, and diabetes mellitus. 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 We have been asked to see the patient in consultation for atrial flutter. Patient originally presented to the hospital with abdominal pain. Patient has been diagnosed with a partial small bowel obstruction. He is NG tube in place to low intermittent suction and is awaiting surgery evaluation. EKG upon arrival revealed atrial flutter with RVR. Patient was on IV Cardizem drip which has since been discontinued. He is currently maintaining sinus rhythm with a heart rate in the 80s. He denies chest pain or pressure. Denies shortness of breath. Denies palpitations. 05/15/2020 Patient examined at the bedside. He denies chest pain or pressure. Denies shortness of breath. He remains in sinus rhythm. He remains on IV heparin. He continues to have an NG tube to low intermittent suction. He is being followed by general surgery. Echocardiogram completed revealed ejection fraction 55-60%, mild aortic regurgitation, mild mitral regurgitation, and restrict us regurgitation. 05/16/2020 Patient examined at the bedside. Patient states he is passing flatus. NG tube is to be discontinued and patient will be started on a clear liquid diet per general surgery. Patient remains on IV heparin. He remains in sinus mechanism per telemetry. Patient's blood pressure remains significantly elevated with a systolic in the 180s. 05/17/2020 Patient examined this morning at the bedside. He denies abdominal pain NG tube has been discontinued. Patient is tolerating clear liquid diet. He remains on IV heparin drip. Eliquis prescription sent to pharmacy. Per case management patient's Eliquis is $482.70 a month. PHYSICAL EXAM: VITAL SIGNS: Reviewed. GENERAL: Well-developed in no acute distress. HEENT: Head is normocephalic. Pupils are equal, round. Sclerae anicteric. Mucous membranes of the mouth are moist. Neck supple. No JVD or thyromegaly LUNGS: Respirations even and unlabored. Lungs essentially clear to auscultation bilaterally. HEART: Regular rate and rhythm. S1 and S2 heard. EXTREMITIES: Normal range of motion. No clubbing or cyanosis. Peripheral pulses intact. No lower extremity edema ASSESSMENT: Partial small bowel obstruction New-onset atypical atrial flutter with RVR, currently maintaining sinus mechanism Hypertension Hyperlipidemia Diabetes mellitus PLAN: Continue current cardiac medications Patients eliquis is $482.70 a month per case management. Will prescribe Coumadin instead of Eliquis due to cost. Will speak with general surgery. Will switch to oral anticoagulation with cleared by Dr. Baptiste Further recommendations pending patient's course Nurse practitioner note has been reviewed by physician. Signing provider agrees with the documented findings, assessment, and plan of care. Objective - Vital Signs Vital signs: Vital Signs Temp 97.5 F L 05/17/20 12:30 Pulse 55 L 05/17/20 12:30 Resp 18 05/17/20 12:30 BP 127/65 05/17/20 12:30 Pulse Ox 95 05/17/20 12:30 Intake & Output 05/16/20 05/17/20 05/17/20 18:59 06:59 18:59 Intake Total 1330 584.247 Output Total 200 Balance 1330 -200 584.247 Weight 99.9 kg Intake: Intake, IV Titration 250 24.247 Amount Heparin Sod,Pork in 0.45% 250 24.247 NaCl 25,000 unit In 0.45 % NaCl 1 250ml.bag @ 10 UNITS/KG/HR 9.83 mls/hr IV .Q24H [facility] Rx#: [id number] Oral 1080 560 Output: Urine 200 Other: Voiding Method Urinal Urinal Urinal # Voids 1 - Labs CBC & Chem 7: 05/17/20 07:35 05/16/20 07:42 Labs: Abnormal Lab Results - Last 24 Hours (Table) 05/16/20 05/16/20 05/17/20 Range/Units 16:48 20:59 06:23 Lymphocytes # (1.0-4.8) k/uL APTT (22.0-30.0) sec POC Glucose (mg/dL) 175 H 222 H 110 H (75-99) mg/dL 05/17/20 05/17/20 05/17/20 Range/Units 07:35 07:35 12:25 Lymphocytes # 0.8 L (1.0-4.8) k/uL APTT 90.9 H (22.0-30.0) sec POC Glucose (mg/dL) 177 H (75-99) mg/dL Microbiology - Last 24 Hours (Table) 05/13/20 16:31 Blood Culture - Preliminary Blood No Growth after 72 hours
--- NOTE | 2020-05-17 14:12 | P.PN ---
Subjective Progress Note Date: 05/17/20 CHIEF COMPLAINT: Abdominal pain HISTORY OF PRESENT ILLNESS: Patient is being followed for a partial distal small bowel obstruction. Patient denies any abdominal pain. Patient is passing gas and having bowel movements. He denies any nausea vomiting. He tolerated full liquid diet for lunch. Afebrile. WBC 7.7 patient's BP is better PHYSICAL EXAM: VITAL SIGNS: Reviewed. GENERAL: Well-developed in no acute distress. HEENT: No sclera icterus. Extraocular movements grossly intact. Moist buccal mucosa. Head is atraumatic, normocephalic. ABDOMEN: Soft. Nontender nondistended NEUROLOGIC: Alert and oriented. Cranial nerves II through XII grossly intact. ASSESSMENT: 1. Partial distal small bowel obstruction, resolved 2. Prior history of small bowel obstruction treated conservatively 3. Atrial flutter with rapid ventricular response followed by cardiology PLAN: -Advance diet to regular for dinner -Patient can be started on oral anticoagulation from surgical standpoint for his atrial flutter Physician Log Rafter note has been reviewed by physician. Signing provider agrees with the documented findings, assessment, and plan of care. Objective - Vital Signs Vital signs: Vital Signs Temp 97.5 F L 05/17/20 12:30 Pulse 55 L 05/17/20 12:30 Resp 18 05/17/20 12:30 BP 127/65 05/17/20 12:30 Pulse Ox 95 05/17/20 12:30 Intake & Output 05/16/20 05/17/20 05/17/20 18:59 06:59 18:59 Intake Total 1330 584.247 Output Total 200 Balance 1330 -200 584.247 Weight 99.9 kg Intake: Intake, IV Titration 250 24.247 Amount Heparin Sod,Pork in 0.45% 250 24.247 NaCl 25,000 unit In 0.45 % NaCl 1 250ml.bag @ 10 UNITS/KG/HR 9.83 mls/hr IV .Q24H [facility] Rx#: [id number] Oral 1080 560 Output: Urine 200 Other: Voiding Method Urinal Urinal Urinal # Voids 1 - Labs CBC & Chem 7: 05/17/20 07:35 05/16/20 07:42 Labs: Abnormal Lab Results - Last 24 Hours (Table) 05/16/20 05/16/20 05/17/20 Range/Units 16:48 20:59 06:23 Lymphocytes # (1.0-4.8) k/uL APTT (22.0-30.0) sec POC Glucose (mg/dL) 175 H 222 H 110 H (75-99) mg/dL 05/17/20 05/17/20 05/17/20 Range/Units 07:35 07:35 12:25 Lymphocytes # 0.8 L (1.0-4.8) k/uL APTT 90.9 H (22.0-30.0) sec POC Glucose (mg/dL) 177 H (75-99) mg/dL Microbiology - Last 24 Hours (Table) 05/13/20 16:31 Blood Culture - Preliminary Blood No Growth after 72 hours
[2020-05-17 15:03] LABS: INR 1.1 (<1.2); Prothrombin Time 11.2 sec (9.0-12.0)
[2020-05-17 17:01] LABS: Glucose,Whole Blood 183 mg/dL (75-99)
[2020-05-17] MEDS ORDERED: WARFARIN 5 MG TAB PO SCH (18:00)
[2020-05-17] MEDS: ATORVASTATIN 20 MG TAB PO SCH (19:35)
--- NOTE | 2020-05-17 19:38 | PN ---
PROGRESS NOTE DATE OF SERVICE: 06/17/2020 CHIEF COMPLAINT: Bowel obstruction. HISTORY OF PRESENT ILLNESS: This gentleman seems to be doing well. His blood pressure is down. He is passing gas and his diet is being advanced. PHYSICAL EXAMINATION: There are no masses or tenderness. Bowel sounds are active. IMPRESSION: 1. Slowly resolving small-bowel obstruction. 2. Hypertension. 3. Diabetes. PLAN: Continue to advance diet. He can probably go home in the next day or two. MMODL / IJN: [id number] /
[2020-05-17 20:40] LABS: Glucose,Whole Blood 174 mg/dL (75-99)
--- NOTE | 2020-05-17 23:32 | MISC ---
MISCELLANOUS REPORT Renal failure; unable to determine. MMODL / IJN: [id number] /
[2020-05-18] MEDS: SODIUM CHLORIDE 0.9% 1,000 ML IV SCH (02:25)
[2020-05-18 06:13] LABS: Glucose,Whole Blood 117 mg/dL (75-99)
[2020-05-18 08:01] VITALS: RESP 16; TEMP 97.6
[2020-05-18] MEDS: METOPROLOL TARTRATE 50 MG TAB PO SCH (08:01)
[2020-05-18] MEDS: hydrALAZINE HCL 50 MG TAB PO SCH (08:01)
[2020-05-18] MEDS: LOSARTAN 50 MG TAB PO SCH (08:01)
[2020-05-18] MEDS: amLODIPine 10 MG TAB PO SCH (08:02)
[2020-05-18 09:10] LABS: HCT 40.3 % (39.0-53.0); HGB 12.8 gm/dL (13.0-17.5); MCH 29.3 pg (25.0-35.0); MCHC 31.9 g/dL (31.0-37.0); MCV 91.9 fL (80.0-100.0); Mean Platelet Volume 7.3; Platelet Count 205 k/uL (150-450); RBC 4.38 m/uL (4.30-5.90); RDW 14.1 % (11.5-15.5); WBC 7.8 k/uL (3.8-10.6)
[2020-05-18 09:18] LABS: INR 1.1 (<1.2); Partial Thromboplastin Time 52.3 sec (22.0-30.0); Prothrombin Time 11.3 sec (9.0-12.0)
[2020-05-18 09:26] LABS: Calcium 6.9 mg/dL (8.4-10.2); Potassium 3.6 mmol/L (3.5-5.1)
[2020-05-18 11:18] VITALS: BP 136/64; PULSE 61
[2020-05-18 11:44] LABS: Glucose,Whole Blood 187 mg/dL (75-99)
[2020-05-18 13:23] VITALS: BMI 31.8
--- NOTE | 2020-05-18 13:40 | P.PN ---
Subjective Progress Note Date: 05/18/20 CHIEF COMPLAINT: Abdominal pain HISTORY OF PRESENT ILLNESS: Patient is being followed for a partial distal small bowel obstruction. Patient denies any abdominal pain. Patient is passing gas and having bowel movements. He denies any nausea vomiting. He is tolerating regular diet. Afebrile. PHYSICAL EXAM: VITAL SIGNS: Reviewed. GENERAL: Well-developed in no acute distress. HEENT: No sclera icterus. Extraocular movements grossly intact. Moist buccal mucosa. Head is atraumatic, normocephalic. ABDOMEN: Soft. Nontender nondistended NEUROLOGIC: Alert and oriented. Cranial nerves II through XII grossly intact. ASSESSMENT: 1. Partial distal small bowel obstruction, resolved 2. Prior history of small bowel obstruction treated conservatively 3. Atrial flutter with rapid ventricular response followed by cardiology PLAN: -Continue regular diet -Okay for anticoagulation from surgical standpoint -Patient is stable for discharge home from surgical standpoint -Patient to follow-up with Dr. Baptiste in 1 week Physician Finished Cloth Examiner note has been reviewed by physician. Signing provider agrees with the documented findings, assessment, and plan of care. Objective - Vital Signs Vital signs: Vital Signs Temp 97.6 F 05/18/20 11:18 Pulse 61 05/18/20 11:18 Resp 16 05/18/20 11:18 BP 136/64 05/18/20 11:18 Pulse Ox 94 L 05/18/20 11:18 Intake & Output 05/17/20 05/18/20 05/18/20 18:59 06:59 18:59 Intake Total 2117.247 240 420 Balance 2117.247 240 420 Weight 103.5 kg 103.5 kg Intake: Intake, IV Titration 934.247 Amount Heparin Sod,Pork in 0.45% 24.247 NaCl 25,000 unit In 0.45 % NaCl 1 250ml.bag @ 10 UNITS/KG/HR 9.83 mls/hr IV .Q24H [facility] Rx#: [id number] Sodium Chloride 0.9% 1, 910 000 ml @ 130 mls/hr IV . Q7H42M [facility] Rx#:[id number] Oral 1183 240 420 Other: Voiding Method Urinal Urinal # Voids 3 1 1 # Bowel Movements 1 1 - Labs CBC & Chem 7: 05/18/20 08:36 05/18/20 08:36 Labs: Abnormal Lab Results - Last 24 Hours (Table) 05/17/20 05/17/20 05/17/20 Range/Units 14:37 17:00 20:39 Hgb (13.0-17.5) gm/dL APTT 57.0 H (22.0-30.0) sec Chloride (98-107) mmol/L Carbon Dioxide (22-30) mmol/L BUN (9-20) mg/dL Creatinine (0.66-1.25) mg/dL Glucose (74-99) mg/dL POC Glucose (mg/dL) 183 H 174 H (75-99) mg/dL Calcium (8.4-10.2) mg/dL 05/18/20 05/18/20 05/18/20 Range/Units 06:11 08:36 08:36 Hgb 12.8 L (13.0-17.5) gm/dL APTT 52.3 H (22.0-30.0) sec Chloride (98-107) mmol/L Carbon Dioxide (22-30) mmol/L BUN (9-20) mg/dL Creatinine (0.66-1.25) mg/dL Glucose (74-99) mg/dL POC Glucose (mg/dL) 117 H (75-99) mg/dL Calcium (8.4-10.2) mg/dL 05/18/20 05/18/20 Range/Units 08:36 11:43 Hgb (13.0-17.5) gm/dL APTT (22.0-30.0) sec Chloride 114 H (98-107) mmol/L Carbon Dioxide 20 L (22-30) mmol/L BUN 49 H (9-20) mg/dL Creatinine 2.18 H (0.66-1.25) mg/dL Glucose 210 H (74-99) mg/dL POC Glucose (mg/dL) 187 H (75-99) mg/dL Calcium 6.9 L (8.4-10.2) mg/dL Microbiology - Last 24 Hours (Table) 05/13/20 16:31 Blood Culture - Preliminary Blood No Growth after 96 hours
--- NOTE | 2020-05-18 14:10 | P.PN ---
Subjective Progress Note Date: 05/18/20 CHIEF COMPLAINT: Atrial flutter HISTORY OF PRESENT ILLNESS: 05/14/2020 This is a 84-year-old male with a past medical history significant for hypertension, hyperlipidemia, and diabetes mellitus. 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 We have been asked to see the patient in consultation for atrial flutter. Patient originally presented to the hospital with abdominal pain. Patient has been diagnosed with a partial small bowel obstruction. He is NG tube in place to low intermittent suction and is awaiting surgery evaluation. EKG upon arrival revealed atrial flutter with RVR. Patient was on IV Cardizem drip which has since been discontinued. He is currently maintaining sinus rhythm with a heart rate in the 80s. He denies chest pain or pressure. Denies shortness of breath. Denies palpitations. 05/15/2020 Patient examined at the bedside. He denies chest pain or pressure. Denies shortness of breath. He remains in sinus rhythm. He remains on IV heparin. He continues to have an NG tube to low intermittent suction. He is being followed by general surgery. Echocardiogram completed revealed ejection fraction 55-60%, mild aortic regurgitation, mild mitral regurgitation, and restrict us regurgitation. 05/16/2020 Patient examined at the bedside. Patient states he is passing flatus. NG tube is to be discontinued and patient will be started on a clear liquid diet per general surgery. Patient remains on IV heparin. He remains in sinus mechanism per telemetry. Patient's blood pressure remains significantly elevated with a systolic in the 180s. 05/17/2020 Patient examined this morning at the bedside. He denies abdominal pain NG tube has been discontinued. Patient is tolerating clear liquid diet. He remains on IV heparin drip. Eliquis prescription sent to pharmacy. Per case management patient's Eliquis is $482.70 a month. 05/18/2020 Patient examined this morning at the bedside. Patient is tolerating oral intake. Patient remains on IV heparin. He was started on Coumadin yesterday. INR 1.1 today. PHYSICAL EXAM: VITAL SIGNS: Reviewed. GENERAL: Well-developed in no acute distress. HEENT: Head is normocephalic. Pupils are equal, round. Sclerae anicteric. Mucous membranes of the mouth are moist. Neck supple. No JVD or thyromegaly LUNGS: Respirations even and unlabored. Lungs essentially clear to auscultation bilaterally. HEART: Regular rate and rhythm. S1 and S2 heard. EXTREMITIES: Normal range of motion. No clubbing or cyanosis. Peripheral pulses intact. No lower extremity edema ASSESSMENT: Partial small bowel obstruction New-onset atypical atrial flutter with RVR, currently maintaining sinus mechanism Hypertension Hyperlipidemia Diabetes mellitus PLAN: Discontinue Catapres patch Continue additional cardiac medications Patient is stable for discharge home today from a cardiac perspective. He is to take 5 mg of Coumadin tonight and then 2.5 mg daily. Prescription for Lovenox for 5 days sent to the pharmacy. Patient will need to have his INR checked on 05/21/2020 at [facility]. Nurse practitioner note has been reviewed by physician. Signing provider agrees with the documented findings, assessment, and plan of care. Objective - Vital Signs Vital signs: Vital Signs Temp 97.6 F 05/18/20 11:18 Pulse 61 05/18/20 11:18 Resp 16 05/18/20 11:18 BP 136/64 05/18/20 11:18 Pulse Ox 94 L 05/18/20 11:18 Intake & Output 05/17/20 05/18/20 05/18/20 18:59 06:59 18:59 Intake Total 2117.247 240 420 Balance 2117.247 240 420 Weight 103.5 kg 103.5 kg Intake: Intake, IV Titration 934.247 Amount Heparin Sod,Pork in 0.45% 24.247 NaCl 25,000 unit In 0.45 % NaCl 1 250ml.bag @ 10 UNITS/KG/HR 9.83 mls/hr IV .Q24H [facility] Rx#: [id number] Sodium Chloride 0.9% 1, 910 000 ml @ 130 mls/hr IV . Q7H42M [facility] Rx#:[id number] Oral 1183 240 420 Other: Voiding Method Urinal Urinal # Voids 3 1 1 # Bowel Movements 1 1 - Labs CBC & Chem 7: 05/18/20 08:36 05/18/20 08:36 Labs: Abnormal Lab Results - Last 24 Hours (Table) 05/17/20 05/17/20 05/17/20 Range/Units 14:37 17:00 20:39 Hgb (13.0-17.5) gm/dL APTT 57.0 H (22.0-30.0) sec Chloride (98-107) mmol/L Carbon Dioxide (22-30) mmol/L BUN (9-20) mg/dL Creatinine (0.66-1.25) mg/dL Glucose (74-99) mg/dL POC Glucose (mg/dL) 183 H 174 H (75-99) mg/dL Calcium (8.4-10.2) mg/dL 05/18/20 05/18/20 05/18/20 Range/Units 06:11 08:36 08:36 Hgb 12.8 L (13.0-17.5) gm/dL APTT 52.3 H (22.0-30.0) sec Chloride (98-107) mmol/L Carbon Dioxide (22-30) mmol/L BUN (9-20) mg/dL Creatinine (0.66-1.25) mg/dL Glucose (74-99) mg/dL POC Glucose (mg/dL) 117 H (75-99) mg/dL Calcium (8.4-10.2) mg/dL 05/18/20 05/18/20 Range/Units 08:36 11:43 Hgb (13.0-17.5) gm/dL APTT (22.0-30.0) sec Chloride 114 H (98-107) mmol/L Carbon Dioxide 20 L (22-30) mmol/L BUN 49 H (9-20) mg/dL Creatinine 2.18 H (0.66-1.25) mg/dL Glucose 210 H (74-99) mg/dL POC Glucose (mg/dL) 187 H (75-99) mg/dL Calcium 6.9 L (8.4-10.2) mg/dL Microbiology - Last 24 Hours (Table) 05/13/20 16:31 Blood Culture - Preliminary Blood No Growth after 96 hours
[2020-05-18] MEDS ORDERED: WARFARIN 2.5 MG TAB PO ONE (18:00)
[2020-05-18] MEDS ORDERED: WARFARIN 5 MG TAB PO ONE (18:00)
--- NOTE | 2020-05-18 19:33 | DS ---
DISCHARGE SUMMARY CHIEF COMPLAINT: Bowel obstruction. HISTORY OF PRESENT ILLNESS AND PHYSICAL EXAMINATION: Details of this man's history and physical can be found in the initial workup. LABORATORY STUDIES: While he was in the hospital he had laboratory studies, details of which can be found in the laboratory section of his chart. COURSE IN THE HOSPITAL: After admission he was placed on bedrest, started on intravenous fluids and nasogastric tube suction. He was seen by the General Surgery and he was monitored closely. For several days he passed no flatus or stool. However, this began to improve and he gradually returned to reasonably normal bowel function. His diet was then advanced after the NG tube was removed and he continued to do well until he was discharged on 05/18/2020. He will go home on his usual diet and light activity. He will be followed up in the office in several days. FINAL DIAGNOSES: 1. Partial small bowel obstruction. 2. Essential hypertension. 3. Type 2 diabetes mellitus. OPERATIONS: None. CONSULTATION: General Surgery. He is improved. MMODL / IJN: [id number] /
== END 2020-05-18 15:01 | disposition home or self-care (01) | DRG 389 ==
LOC: EC 14:33 → 6NMEDSUR 17:33 → 3SCARD 17:56
PROVIDERS: ADMIT Family Medicine; ATTEND Family Medicine
DX: K56.600 Partial intestinal obstruction, unspecified as to cause (principal); I47.1 Supraventricular tachycardia; I48.4 Atypical atrial flutter; N39.0 Urinary tract infection, site not specified; E87.2 Acidosis; E03.9 Hypothyroidism, unspecified; E11.22 Type 2 diabetes mellitus with diabetic chronic kidney disease; E11.51 Type 2 diabetes mellitus with diabetic peripheral angiopathy without gangrene; E11.65 Type 2 diabetes mellitus with hyperglycemia; E78.5 Hyperlipidemia, unspecified; I12.9 Hypertensive chronic kidney disease with stage 1 through stage 4 chronic kidney disease, or unspecified chronic kidney disease; N18.9 Chronic kidney disease, unspecified; Z79.82 Long term (current) use of aspirin; Z79.84 Long term (current) use of oral hypoglycemic drugs; Z79.890 Hormone replacement therapy; Z79.899 Other long term (current) drug therapy; Z82.49 Family history of ischemic heart disease and other diseases of the circulatory system; Z83.3 Family history of diabetes mellitus; Z87.891 Personal history of nicotine dependence; Z96.652 Presence of left artificial knee joint; Z98.890 Other specified postprocedural states; Z80.9 Family history of malignant neoplasm, unspecified; Z91.041 Radiographic dye allergy status
CPT/HCPCS: 36415; 43753; 71045; 74018; 74176; 80048; 80053; 81001; 82009; 82150; 83605; 83690; 84484; 85025; 85027; 85610; 85730; 87040; 87086; 93005; 93306; 96365; 96368; 96375; 99291

== ENCOUNTER → 2020-06-06 | Outpatient (CLI) | payer MEDICARE, BC ==
[2020-06-06 14:42] LABS: T4, Free (Free Thyroxine) 1.3 ng/dL (0.80-1.80)
== END | disposition home or self-care (01) ==
LOC: LABWHC1 08:54
PROVIDERS: ATTEND Internal Medicine Cardiovascular Disease
DX: E03.9 Hypothyroidism, unspecified (principal)
CPT/HCPCS: 36415; 84439; 84443

== ENCOUNTER → 2020-11-14 | Outpatient (CLI) | payer MEDICARE, BC ==
[2020-11-14 18:35] LABS: Basophils # (A) 0.04 X 10*3/uL (0.00-0.10); Basophils % (A) 0.6 %; Eosinophils # (A) 0.31 X 10*3/uL (0.04-0.35); Eosinophils % (A) 4.9 %; HCT 38.5 % (39.6-50.0); HGB 11.9 g/dL (13.0-17.0); Lymphocytes % (A) 17.2 %; MCH 28.3 pg (27.0-32.0); MCHC 30.9 g/dL (32.0-37.0); MCV 91.4 fL (80.0-97.0); Mean Platelet Volume 10.2 fL (9.5-12.2); Monocytes % (A) 6.3 %; Neutrophils # (A) 4.51 X 10*3/uL (1.80-7.70); Neutrophils % (A) 70.5 %; Platelet Count 222 X 10*3/uL (140-440); RBC 4.21 X 10*6/uL (4.40-5.60); RDW 14.6 % (11.5-14.5); WBC 6.39 X 10*3/uL (4.50-10.00)
[2020-11-15 03:54] LABS: African American GFR (CKD) 25.1 (60.0-200.0); Albumin 3.8 g/dL (3.80-4.90); Albumin/Globulin Ratio 1.41 (1.60-3.17); Anion Gap 12.9 mmol/L (4.00-12.00); BUN/Creat Ratio 14.62 Ratio (12.00-20.00); Calcium 8.5 mg/dL (8.7-10.3); Carbon Dioxide 23.1 mmol/L (21.6-31.8); Globulin 2.7 g/dL (1.6-3.3); Non-African American GFR(CKD) 21.7 (60.0-200.0); Potassium 5.1 mmol/L (3.5-5.5); Total Bilirubin 0.5 mg/dL (0.3-1.2); Total Protein 6.5 g/dL (6.2-8.2)
== END | disposition home or self-care (01) ==
LOC: LABWHC1 08:54
PROVIDERS: ATTEND Family Medicine
DX: I50.9 Heart failure, unspecified (principal)
CPT/HCPCS: 36415; 80053; 84484; 85025; 85379

== ENCOUNTER 2020-12-07 06:28 | Inpatient (IN) | payer MEDICARE, BC ==
[2020-12-07] MEDS ORDERED: SODIUM CHLORIDE 0.9% 500 ML 500 ML IV STA (06:40)
[2020-12-07] MEDS ORDERED: METOCLOPRAMIDE 5 MG/ML 2 ML VIAL IVP STA (06:41)
--- NOTE | 2020-12-07 06:50 | ED ---
General Adult HPI - General Chief complaint: Syncope Stated complaint: Dizziness Time Seen by Provider: 12/07/20 06:30 Source: patient, family, EMS, RN notes reviewed Mode of arrival: EMS Limitations: no limitations - History of Present Illness Initial comments: This is an 85-year-old male presents emergency Department via EMS chief complaint nausea, syncopal episode. Patient states that he was going to the bathroom Low back to the bedroom states that he helped for his she's felt dizzy, had that time. Patient states then woke up around. Patient's did not check his blood sugar father gave him candy bar thinking that he was hypoglycemic he states is unsure if this made him feel Better or not but states he is nauseated did have an episode of emesis. Patient currently has no went of head, neck, back pain no extremity weakness or pain. Patient does have a history of A. fib and is on Coumadin. didn't see the patient down there is no noted head injury. Patient again has no point a headache or vision. Patient states he said no dysuria no hematuria does have known chronic kidney disease. - Related Data Home Medications Medication Instructions Recorded Confirmed glipiZIDE [Glucotrol] 5 mg PO AC-SUPPER 02/09/18 05/13/20 Aspirin EC [Ecotrin Low Dose] 81 mg PO HS 05/13/20 05/13/20 Atorvastatin [Lipitor] 20 mg PO HS 05/13/20 05/13/20 Levothyroxine Sodium [Synthroid] 75 mcg PO DAILY 05/13/20 05/13/20 Losartan [Cozaar] 25 mg PO HS 05/13/20 05/13/20 glipiZIDE [Glucotrol] 10 mg PO AC-SUPPER 05/13/20 05/13/20 Previous Rx's Medication Instructions Recorded Enoxaparin [Lovenox] 100 mg SQ Q12H #10 syr 05/18/20 Metoprolol Tartrate [Lopressor] 50 mg PO BID #60 tab 05/18/20 Warfarin [Coumadin] 2.5 mg PO DAILY #90 tab 05/18/20 amLODIPine [Norvasc] 10 mg PO DAILY #30 tab 05/18/20 Allergies Allergy/AdvReac Type Severity Reaction Status Date / Time Iodinated Contrast Media Allergy Mild Rash/Hives Verified 05/13/20 17:40 [Iodinated Contrast Media - IV Dye] Review of Systems ROS Statement: Those systems with pertinent positive or pertinent negative responses have been documented in the HPI. ROS Other: All systems not noted in ROS Statement are negative. 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 History of Any Multi-Drug Resistant Organisms: None Reported Past Surgical History: Hernia Repair, Joint Replacement Additional Past Surgical History / Comment(s): Lap bebeto fundoplasty, TUMOR RIGHT LUNG REMOVED, RIGHT CAROTID ENDARTERECTOMY, gastric surgery for rupture (pt does not know what ruptured), EGD, colonoscopy, CATARACTS., trk 04/07/17, left knee replacement Past Anesthesia/Blood Transfusion Reactions: No Reported Reaction, Motion Sickness Past Psychological History: No Psychological Hx Reported Smoking Status: Former smoker Past Alcohol Use History: Rare Past Drug Use History: None Reported - Past Family History Brother(s) Family Medical History: Diabetes Mellitus Sister(s) Family Medical History: Cancer Mother Family Medical History: Congestive Heart Failure (CHF), Coronary Artery Disease (CAD) Additional Family Medical History / Comment(s): Mother of CHF at age 83 yrs. Father Family Medical History: Myocardial Infarction ([place]) Additional Family Medical History / Comment(s): Father of [place] at age 60 yrs General Exam Limitations: no limitations General appearance: alert, in no apparent distress Head exam: Present: atraumatic, normocephalic, normal inspection Eye exam: Present: normal appearance, PERRL, EOMI. Absent: scleral icterus, conjunctival injection, periorbital swelling Neck exam: Present: normal inspection, full ROM. Absent: tenderness, meningismus, lymphadenopathy Respiratory exam: Present: normal lung sounds bilaterally. Absent: respiratory distress, wheezes, rales, rhonchi, stridor Cardiovascular Exam: Present: irregular rhythm, normal heart sounds. Absent: regular rate, normal rhythm, systolic murmur, diastolic murmur, rubs, gallop, clicks GI/Abdominal exam: Present: soft, normal bowel sounds. Absent: distended, tenderness, guarding, rebound, rigid Back exam: Present: full ROM. Absent: tenderness Neurological exam: Present: alert, oriented X3, CN II-XII intact, reflexes normal, other (Finger nose intact bilaterally). Absent: motor sensory deficit Skin exam: Present: warm, dry, intact, normal color. Absent: rash Course Vital Signs 12/07/20 12/07/20 06:31 08:00 Temperature 97.6 F 98.0 F Pulse Rate 75 75 Respiratory 18 18 Rate Blood Pressure 146/84 128/74 O2 Sat by Pulse 99 99 Oximetry Medical Decision Making - Medical Decision Making 85-year-old presented for syncopal episode. Patient found to be acutely dehydrated. Patient's creatinine has elevated 3.4 the GFR 15. I discuss case with Dr. Oneil accepts admission requesting cardiology and nephrology consults. patient started and low maintenance fluids. - Lab Data Result diagrams: 12/07/20 06:44 12/07/20 07:45 Lab Results 12/07/20 12/07/20 12/07/20 Range/Units 06:44 06:44 06:44 WBC 9.4 (3.8-10.6) k/uL RBC 5.03 (4.30-5.90) m/uL Hgb 14.6 (13.0-17.5) gm/dL Hct 43.5 (39.0-53.0) % MCV 86.5 (80.0-100.0) fL MCH 29.1 (25.0-35.0) pg MCHC 33.6 (31.0-37.0) g/dL RDW 14.1 (11.5-15.5) % Plt Count 232 (150-450) k/uL MPV 8.1 Neutrophils % 72 % Lymphocytes % 19 % Monocytes % 5 % Eosinophils % 2 % Basophils % 1 % Neutrophils # 6.8 (1.3-7.7) k/uL Lymphocytes # 1.8 (1.0-4.8) k/uL Monocytes # 0.5 (0-1.0) k/uL Eosinophils # 0.2 (0-0.7) k/uL Basophils # 0.1 (0-0.2) k/uL PT 21.5 H (9.0-12.0) sec INR 2.2 H (<1.2) APTT 27.4 (22.0-30.0) sec Sodium (137-145) mmol/L Potassium (3.5-5.1) mmol/L Chloride (98-107) mmol/L Carbon Dioxide (22-30) mmol/L Anion Gap mmol/L BUN (9-20) mg/dL Creatinine (0.66-1.25) mg/dL Est GFR (CKD-EPI)AfAm (>60 ml/min/1.73 sqM) Est GFR (CKD-EPI)NonAf (>60 ml/min/1.73 sqM) Glucose (74-99) mg/dL Calcium (8.4-10.2) mg/dL Magnesium (1.6-2.3) mg/dL Total Bilirubin (0.2-1.3) mg/dL AST (17-59) U/L ALT (4-49) U/L Alkaline Phosphatase (38-126) U/L Troponin I (0.000-0.034) ng/mL Total Protein (6.3-8.2) g/dL Albumin (3.5-5.0) g/dL Urine Color Light Yellow Urine Appearance Clear (Clear) Urine pH 6.0 (5.0-8.0) Ur Specific [place] 1.012 (1.001-1.035) Urine Protein 2+ H (Negative) Urine Glucose (UA) 3+ H (Negative) Urine Ketones Negative (Negative) Urine Blood Small H (Negative) Urine Nitrite Negative (Negative) Urine Bilirubin Negative (Negative) Urine Urobilinogen <2.0 (<2.0) mg/dL Ur Leukocyte Esterase Negative (Negative) Urine RBC 1 (0-5) /hpf Urine WBC 4 (0-5) /hpf Urine Bacteria Rare H (None) /hpf Hyaline Casts 3 H (0-2) /lpf Urine Mucus Rare H (None) /hpf 12/07/20 12/07/20 Range/Units 07:45 07:45 WBC (3.8-10.6) k/uL RBC (4.30-5.90) m/uL Hgb (13.0-17.5) gm/dL Hct (39.0-53.0) % MCV (80.0-100.0) fL MCH (25.0-35.0) pg MCHC (31.0-37.0) g/dL RDW (11.5-15.5) % Plt Count (150-450) k/uL MPV Neutrophils % % Lymphocytes % % Monocytes % % Eosinophils % % Basophils % % Neutrophils # (1.3-7.7) k/uL Lymphocytes # (1.0-4.8) k/uL Monocytes # (0-1.0) k/uL Eosinophils # (0-0.7) k/uL Basophils # (0-0.2) k/uL PT (9.0-12.0) sec INR (<1.2) APTT (22.0-30.0) sec Sodium 136 L (137-145) mmol/L Potassium 3.5 (3.5-5.1) mmol/L Chloride 99 (98-107) mmol/L Carbon Dioxide 23 (22-30) mmol/L Anion Gap 14 mmol/L BUN 73 H (9-20) mg/dL Creatinine 3.44 H (0.66-1.25) mg/dL Est GFR (CKD-EPI)AfAm 18 (>60 ml/min/1.73 sqM) Est GFR (CKD-EPI)NonAf 15 (>60 ml/min/1.73 sqM) Glucose 256 H (74-99) mg/dL Calcium 8.8 (8.4-10.2) mg/dL Magnesium 2.1 (1.6-2.3) mg/dL Total Bilirubin 0.8 (0.2-1.3) mg/dL AST 23 (17-59) U/L ALT 16 (4-49) U/L Alkaline Phosphatase 85 (38-126) U/L Troponin I <0.012 (0.000-0.034) ng/mL Total Protein 6.9 (6.3-8.2) g/dL Albumin 3.9 (3.5-5.0) g/dL Urine Color Urine Appearance (Clear) Urine pH (5.0-8.0) Ur Specific [place] (1.001-1.035) Urine Protein (Negative) Urine Glucose (UA) (Negative) Urine Ketones (Negative) Urine Blood (Negative) Urine Nitrite (Negative) Urine Bilirubin (Negative) Urine Urobilinogen (<2.0) mg/dL Ur Leukocyte Esterase (Negative) Urine RBC (0-5) /hpf Urine WBC (0-5) /hpf Urine Bacteria (None) /hpf Hyaline Casts (0-2) /lpf Urine Mucus (None) /hpf Disposition Clinical Impression: Dehydration, Acute kidney injury, Syncope Disposition: ADMITTED IP TO THIS HOSP Condition: Fair Referrals: Michael Oneil MD [Primary Care Provider] - 1-2 days
[2020-12-07 06:53] LABS: Basophils # (A) 0.1 k/uL (0-0.2); Basophils % (A) 1 %; Eosinophils # (A) 0.2 k/uL (0-0.7); Eosinophils % (A) 2 %; HCT 43.5 % (39.0-53.0); HGB 14.6 gm/dL (13.0-17.5); Lymphocytes # (A) 1.8 k/uL (1.0-4.8); Lymphocytes % (A) 19 %; MCH 29.1 pg (25.0-35.0); MCHC 33.6 g/dL (31.0-37.0); MCV 86.5 fL (80.0-100.0); Mean Platelet Volume 8.1; Monocytes # (A) 0.5 k/uL (0-1.0); Monocytes % (A) 5 %; Neutrophils # (A) 6.8 k/uL (1.3-7.7); Neutrophils % (A) 72 %; Platelet Count 232 k/uL (150-450); RBC 5.03 m/uL (4.30-5.90); RDW 14.1 % (11.5-15.5); WBC 9.4 k/uL (3.8-10.6)
[2020-12-07 07:04] LABS: INR 2.2 (<1.2); Partial Thromboplastin Time 27.4 sec (22.0-30.0); Prothrombin Time 21.5 sec (9.0-12.0)
--- NOTE | 2020-12-07 07:05 | XR ---
EXAMINATION TYPE: XR chest 2V DATE OF EXAM: 12/07/2020 COMPARISON: Chest x-ray May 14, 2020 HISTORY: Syncope and weakness TECHNIQUE: Frontal and lateral views of the chest are obtained. FINDINGS: There is chronic parenchymal change without suspicious focal air space opacity, pleural ef fusion, or pneumothorax seen. The cardiac silhouette size is stable and mildly enlarged. Overlying E KG leads redemonstrated. Degenerative change bilateral glenohumeral joints. IMPRESSION: Chronic changes and mild cardiomegaly without acute pulmonary process.
[2020-12-07 08:37] LABS: Albumin 3.9 g/dL (3.5-5.0); Calcium 8.8 mg/dL (8.4-10.2); Magnesium 2.1 mg/dL (1.6-2.3); Potassium 3.5 mmol/L (3.5-5.1); Total Bilirubin 0.8 mg/dL (0.2-1.3); Total Protein 6.9 g/dL (6.3-8.2)
[2020-12-07 10:01] LABS: Appearance,Urine Clear (Clear); Bacteria,Urine Rare /hpf; Bilirubin,Urine Negative (Negative); Blood,Urine Small (Negative); Color,Urine Light Yellow; Glucose,Urine (UA) 3+ (Negative); Hyaline Casts,Urine 3 /lpf (0-2); Ketones,Urine Negative (Negative); Leukocyte Esterase,Urine Negative (Negative); Mucus,Urine Rare /hpf; Nitrite,Urine Negative (Negative); Protein,Urine 2+ (Negative); RBC,Urine 1 /hpf (0-5); Specific Gravity,Urine 1.012 (1.001-1.035); Urobilinogen,Urine <2.0 mg/dL (<2.0); WBC,Urine 4 /hpf (0-5)
[2020-12-07] MEDS ORDERED: NALOXONE 0.4 MG/ML 1 ML VIAL IV PRN (10:43)
[2020-12-07] MEDS: SODIUM CHLORIDE 0.9% 1,000 ML IV SCH ×2 (15:58→23:48)
--- NOTE | 2020-12-07 16:40 | ECHOF ---
Referral Reason:syncope MEASUREMENTS -------- HEIGHT: 180.3 cm WEIGHT: 93.0 kg BP: 130/68 RVIDd: 2.1 cm (< 3.3) IVSd: 1.2 cm (0.6 - 1.1) LVIDd: 4.6 cm (3.9 - 5.3) LVPWd: 1.3 cm (0.6 - 1.1) IVSs: 2.1 cm LVIDs: 2.2 cm LVPWs: 2.1 cm Ao Diam: 3.4 cm (2.0 - 3.7) AV Cusp: 2.2 cm (1.5 - 2.6) LA Diam: 3.0 cm (2.7 - 3.8) MV EXCURSION: 23.601 mm (> 18.000) MV EF SLOPE: 122 mm/s (70 - 150) EPSS: 1.2 cm MV E Kayode: 0.71 m/s MV DecT: 208 ms MV A [place]: 0.56 m/s MV E/A Ratio: 1.26 RAP: 5.00 mmHg RVSP: 20.96 mmHg FINDINGS -------- This was a technically difficult study with suboptimal views. The left ventricular size is normal. There is mild concentric left ventricular hypertrophy. Overa ll left ventricular systolic function is normal with, an EF between 55 - 60 %. The right ventricle is normal in size. The left atrial size is normal. The right atrial size is normal. Lumason used The aortic valve is trileaflet and appears structurally normal. The mitral valve is normal. There is trace mitral regurgitation. The tricuspid valve appears structurally normal. Trace tricuspid regurgitation present. Right rigoberto tricular systolic pressure is normal at < 35 mmHg. There is no pulmonic regurgitation present. The aortic root size is normal. IVC Not well visulized. There is no pericardial effusion. CONCLUSIONS -------- 1. The left ventricular size is normal. 2. There is mild concentric left ventricular hypertrophy. 3. Overall left ventricular systolic function is normal with, an EF between 55 - 60 %. 4. There is trace mitral regurgitation. 5. Trace tricuspid regurgitation present. 6. There is no pericardial effusion. DUAL RATE SUPERVISOR: Nancy Torrez RD
[2020-12-07 16:41] LABS: Glucose,Whole Blood 194 mg/dL (75-99)
--- NOTE | 2020-12-07 19:39 | CONS ---
CONSULTATION ATTENDING: Dr. Oneil HISTORY OF PRESENT ILLNESS: Mr. Farley is an 85-year-old male followed on a regular basis by Dr. Estes with a history of atrial fibrillation anticoagulated, history of hyperlipidemia, diabetes mellitus, who presented with a syncopal episode. He woke up early this morning to go to the bathroom and subsequently his heard him falling down. When she found him, he was unresponsive for a very brief period of time. When he came to, he had no focal weakness. He had no tonic-clonic activity and no loss of bladder control. The patient is seen in the emergency room. His ventricular response is controlled. He denies any chest discomfort. He has dyspnea on exertion and had recently some episode of peripheral edema that improved with diuretics. He has no PND, no orthopnea. He was in the hospital in April and at that time underwent an echocardiogram that showed a preserved left ventricular size and systolic function. The patient has no documented history of obstructive coronary artery disease or myocardial infarction. His coronary risk factors are remarkable for diabetes and hyperlipidemia. He is nonsmoker. No hypertension. MEDICATIONS: Include Glucotrol 10 mg twice a day, Coumadin, levothyroxine 0.05 mg daily, furosemide 40 mg every 48 hours and atorvastatin 20 mg daily. REVIEW OF SYSTEMS: Respiratory system: He had dyspnea on exertion. No recent wheezing or cough. GI system: No recent GI bleeding. No peptic ulcer disease. system: No dysuria or hematuria. Nervous system: No stroke or seizure. PHYSICAL EXAMINATION: 85-year-old male, alert, oriented, no apparent distress. Blood pressure 130/68 with a heart rate in 70s. HEAD: Normocephalic. Eyes sclerae anicteric. NECK: Good carotid upstroke. No bruit. No jugular venous distention. LUNGS: Clear to auscultation. HEART: Irregularly irregular S1, S2 with a systolic ejection murmur 2/6 at the base. No diastolic murmur. No rub. ABDOMEN: Soft, nontender. Positive bowel sounds. No organomegaly. EXTREMITIES: No edema. Intact distal pulses. LAB DATA: Potassium 3.5, BUN and creatinine 73 and 3.44. His creatinine in April was 2.18. At that time, his BUN was in the 30s to 40s. His hemoglobin 14.6, white blood cell of 9.4. INR of 2.2. His EKG revealed coarse atrial fibrillation, or atrial tachycardia with variable rate. Average rate is [address]-T wave changes and left axis deviation. His chest x-ray shows no acute infiltrate. IMPRESSION: 1. Syncopal episode most likely orthostatic hypotension. The patient appears to be dehydrated with worsening renal function, probably related to the diuretics. The possibility of arrhythmia and slow ventricular response cannot be totally occluded, although not typical. The possibility of hypoglycemia is not typical with this presentation. 2. History of atrial fibrillation on the EKG. It could be coarse atrial fibrillation or atrial tachycardia, anticoagulated, rate controlled on no chronotropic drugs raising possibility of AV patti disease. 3. History of diabetes. 4. History of hyperlipidemia. 5. Hypothyroidism. 6. Worsening renal function with possible dehydration and prerenal azotemia. RECOMMENDATIONS: From the cardiac standpoint, I will hold his diuretic at this time. I will continue on the anticoagulation and the statin. I will obtain echocardiogram with Doppler and make sure there is no change in his LV systolic function. We will continue to follow his renal function closely. He will be on the monitor to see if there is any evidence of tachy-neeru syndrome and depending on those findings, further recommendations will be made. Thank you for this consult. We will follow with you. MMODL / IJN: [id number] /
[2020-12-07 19:45] LABS: Glucose,Whole Blood 273 mg/dL (75-99)
[2020-12-07] MEDS: INSULIN ASPART (NovoLOG) 100 UNIT/ML VIAL SQ SCH (20:19)
[2020-12-07] MEDS: INSULIN DETEMIR (LEVEMIR) 100 UNIT/ML SYR SQ SCH (20:19)
[2020-12-07] MEDS: ATORVASTATIN 20 MG TAB PO SCH (20:19)
[2020-12-08 03:10] LABS: Glucose,Whole Blood 93 mg/dL (75-99)
[2020-12-08 06:05] LABS: Glucose,Whole Blood 144 mg/dL (75-99)
[2020-12-08 07:28] LABS: Prothrombin Time 19.6 sec (9.0-12.0)
[2020-12-08 07:38] LABS: Calcium 8.5 mg/dL (8.4-10.2); Potassium 3.8 mmol/L (3.5-5.1)
[2020-12-08] MEDS: INSULIN ASPART (NovoLOG) 100 UNIT/ML VIAL SQ SCH ×4 (08:11→20:16)
[2020-12-08] MEDS: LEVOTHYROXINE 50 MCG TAB PO SCH (08:12)
--- NOTE | 2020-12-08 09:41 | P.NPCON ---
History of Present Illness - Reason for Consult acute renal failure, chronic renal failure - History of Present Illness Reason for consultation: Acute kidney injury on chronic kidney disease History of present illness: Patient is a 85-year-old male seen in consultation for acute kidney injury on chronic kidney disease. Patient has chronic kidney disease stage IV with baseline creatinine the range of 2.1-2.4 secondary to diabetic kidney disease. Patient presented to the hospital after a syncopal episode. Patient states he ate an early dinner yesterday and did not eat anything prior to going to bed. When he went up to go to the bathroom around 4 AM he had a syncopal episode. Patient felt that his blood sugar was low. His blood pressures currently stable. He is receiving IV fluids. Lasix is held. Creatinine was 3.4 on admission and is down to 3.04 today. He is awake and alert. Denies use of nonsteroidals. He has long-standing history of diabetes mellitus. Denies family history of renal disease. Blood pressure is stable. No fever or chills. Vital signs are stable. General: The patient appeared well nourished and normally developed. HEENT: Head exam is unremarkable. Neck is without jugular venous distension. LUNGS: Breath sounds decreased. HEART: Rate and Rhythm are regular. ABDOMEN: Soft, no distention. EXTREMITITES: No edema. 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 He is independent. He uses no assistive device. He drives a car. Smoking Status: Former smoker Past Alcohol Use History: Rare Additional Past Alcohol Use History / Comment(s): Pt started smoking in 1956 1ppd and quit in 1967. Past Drug Use History: None Reported - Past Family History Brother(s) Family Medical History: Diabetes Mellitus Sister(s) Family Medical History: Cancer Mother Family Medical History: Congestive Heart Failure (CHF), Coronary Artery Disease (CAD) Additional Family Medical History / Comment(s): Mother of CHF at age 83 yrs. Father Family Medical History: Myocardial Infarction ([place]) Additional Family Medical History / Comment(s): Father of [place] at age 60 yrs Medications and Allergies Home Medications Medication Instructions Recorded Confirmed Type Atorvastatin [Lipitor] 20 mg PO HS 05/13/20 12/07/20 History Furosemide [Lasix] 40 mg PO Q48H 12/07/20 12/07/20 History Levothyroxine Sodium [Synthroid] 50 mcg PO DAILY 12/07/20 12/07/20 History Warfarin [Coumadin] 2.5 mg PO TUSA@0900 12/07/20 12/07/20 History Warfarin [Coumadin] 3.75 mg PO SUMOWETHFR@0900 12/07/20 12/07/20 History glipiZIDE [Glucotrol] 10 mg PO BID 12/07/20 12/07/20 History Allergies Allergy/AdvReac Type Severity Reaction Status Date / Time Iodinated Contrast Media Allergy Mild Rash/Hives Verified 12/07/20 10:50 [Iodinated Contrast Media - IV Dye] Physical Exam Vitals: Vital Signs Temp Pulse Pulse Resp BP BP BP 12/08/20 08:00 97.7 F 83 20 159/72 12/08/20 03:21 97.8 F 85 18 146/80 12/07/20 23:41 98.2 F 76 16 112/65 12/07/20 20:00 97.8 F 85 18 169/90 12/07/20 12:00 98 F 87 16 167/76 12/07/20 11:00 77 18 130/68 Pulse Ox 12/08/20 08:00 97 12/08/20 03:21 96 12/07/20 23:41 96 12/07/20 20:00 98 12/07/20 12:00 98 12/07/20 11:00 99 Intake and Output 12/07/20 12/08/20 12/08/20 22:59 06:59 14:59 Intake Total 840 990 240 Balance 840 990 240 Intake: Intake, IV Titration 750 Amount Sodium Chloride 0.9% 1, 750 000 ml @ 75 mls/hr IV . [id number] [facility] Rx#:[id number] Oral 840 240 240 Other: Voiding Method Toilet # Voids 1 1 # Bowel Movements 1 Weight 94.3 kg Results - Lab Results Most recent lab results Calcium 8.5 mg/dL (8.4-10.2) 12/08/20 06:40 Magnesium 2.1 mg/dL (1.6-2.3) 12/07/20 07:45 12/07/20 06:44 12/08/20 06:40 Assessment and Plan Plan: Assessment: 1. Acute kidney injury mostly prerenal improving with IV fluids. Creatinine 3.4 on admission and is 3.04 today. 2. Chronic kidney disease stage IV with baseline creatinine in the range of 2.1-2.4 secondary to diabetic kidney disease. 3. Syncopal episode. Cardiology consulted. 4. Diabetes mellitus. Plan: Maintain IV fluids. Hold diuretics. Check orthostatic vital signs. Avoid nephrotoxins. Continue to monitor renal function and urine output. Thank you for the consultation. I will continue to follow patient with you during his hospital stay.
[2020-12-08 11:45] LABS: Glucose,Whole Blood 206 mg/dL (75-99)
[2020-12-08] MEDS: SODIUM CHLORIDE 0.9% 1,000 ML IV SCH ×2 (12:54→23:43)
--- NOTE | 2020-12-08 15:52 | HP ---
HISTORY AND PHYSICAL CHIEF COMPLAINT: Syncopal episode. HISTORY OF PRESENT ILLNESS: This is another admission for this 85-year-old white male with a longstanding history of diabetes and hypertension. Recently he has been having difficulty with shortness of breath and congestive heart failure. He was started on diuretic management and became slightly dehydrated and his renal function began to deteriorate. He was doing fairly well when he suddenly passed out at home. He is not a good historian, so it is difficult to tell exactly what he experienced. He came to the emergency room awake, alert and cognitively intact. He denied any chest pain, shortness of breath, nausea, vomiting, hematemesis, melena, hematochezia, etc. He was not incontinent. He did say he was slightly diaphoretic. In the emergency room his potassium was 3.5, but his creatinine had elevated to 3.5 with a GFR of 15, which is not usual for him. REVIEW OF SYSTEMS: He denies any headaches, change in vision or hearing, hemoptysis, pleuritic pain, abdominal pain, etc. Past medical history, family history, and personal and social histories are otherwise unremarkable and unchanged. He is ALLERGIC to CONTRAST MATERIAL and TONO INHIBITORS. He is currently on vitamin D 50,000 units a month, levothyroxine 0.05 once a day, warfarin 2.5 twice a week, Lasix 40 mg once a day, glipizide 10 mg twice a day, Cozaar 25 mg once a day, and atorvastatin 20 mg once a day. He used to smoke, but he quit long ago. PHYSICAL EXAMINATION: Blood pressure 128/80 with a pulse of 64 and irregularly irregular. Respirations were 12. In general he appeared to be well developed, well nourished, in no acute distress. Skin color was normal and skin was warm and dry. Lymph nodes were not enlarged. Head, ears, eyes, nose, mouth and throat were normal except for dry mucous membranes. Neck veins not distended. Carotids normal. Chest is clear. Cardiac exam demonstrated atrial fibrillation. Abdomen was soft and nontender without any masses or visceromegaly. Extremities were normal. There was very little edema. Neurologically he is intact. IMPRESSION: 1. Syncopal episode. 2. Congestive heart failure. 3. Chronic kidney disease. 4. Prerenal azotemia. 5. Type 2 diabetes mellitus. PLAN: 1. Bedrest. 2. IV fluids. 3. Continuous cardiac monitoring. 4. Serial troponins and BNP. 5. Consult with Nephrology and Cardiology. MMNAYL / IJN: [id number] /
--- NOTE | 2020-12-08 16:07 | PN ---
PROGRESS NOTE DATE OF SERVICE: 12/08/2020 CHIEF COMPLAINT: Syncopal episode. HISTORY OF PRESENT ILLNESS: This gentleman is doing well. He feels fine. He has had no chest pain, lightheadedness, neurologic problems, etc. PHYSICAL EXAMINATION: His chest is clear. The cardiac exam is unchanged with atrial fibrillation. His abdomen is soft and slightly protuberant. It is nontender. Extremities are normal. IMPRESSION: 1. Syncope, etiology unknown. 2. Congestive heart failure. 3. Hypertension. 4. Diabetes. 5. Renal failure. PLAN: Continue with IV fluids and await further evaluation from Cardiology and Nephrology. MMODL / IJN: [id number] /
[2020-12-08 16:47] LABS: Glucose,Whole Blood 202 mg/dL (75-99)
[2020-12-08] MEDS ORDERED: WARFARIN 2.5 MG TAB PO SCH (18:00)
[2020-12-08 19:33] LABS: Glucose,Whole Blood 240 mg/dL (75-99)
--- NOTE | 2020-12-08 20:02 | P.PN ---
Subjective HISTORY OF PRESENTING ILLNESS Patient is a pleasant 85-year-old gentleman with a history of atrial fibrillation, hyperlipidemia, diabetes mellitus, chronic kidney disease. He presented with a unresponsive episode after falling down while in the bathroom. The patient was found to be in A. fib with controlled ventricular rate. He had echocardiogram performed yesterday which showed normal ejection fraction 55-60% without significant valvular disease. He initially was found to have abnormal creatinine at 3.4, mildly improved to 3.0 and his diuretics have been held. PHYSICAL EXAMINATION Vital signs reviewed. CONSTITUTIONAL: No apparent distress. HEENT: Head is normocephalic. Pupils are equal, round. Sclerae anicteric. Mucous membranes of the mouth are moist. No JVD. No carotid bruit. CHEST EXAMINATION: Lungs are clear to auscultation. No chest wall tenderness is noted on palpation or with deep breathing. HEART EXAMINATION: Regular rate and rhythm. S1, S2 heard. No murmurs, gallops or rub. ABDOMEN: Soft, nontender. Positive bowel sounds. EXTREMITIES: 2+ peripheral pulses, no lower extremity edema and no calf tenderness. NEUROLOGIC EXAMINATION: Patient is awake, alert and oriented x3. ASSESSMENT 1. Syncopal episode, likely related to orthostatic hypotension 2. Atrial fibrillation 3. Diabetes mellitus type 2 4. Hyperlipidemia 5. Hypothyroidism 6. Acute kidney injury, possibly related to dehydration PLAN Continue to hold patient's diuretics, does not appear fluid overloaded. Patient with controlled ventricular rates. Continue with anticoagulation. Echocardiogram shows preserved ejection fraction 55-60%. Syncopal episode appears mainly related to orthostatic hypotension. No further recommendations from a cardiology standpoint. Continue to monitor creatinine. Please call with any questions. Objective - Vital Signs Vital signs: Vital Signs Temp 96.9 F L 12/08/20 16:51 Pulse 83 12/08/20 16:51 Resp 20 12/08/20 16:51 BP 168/95 12/08/20 16:51 Pulse Ox 97 12/08/20 16:51 Intake & Output 12/08/20 12/08/20 12/09/20 06:59 18:59 06:59 Intake Total 990 720 Balance 990 720 Weight 94.3 kg Intake: Intake, IV Titration 750 Amount Sodium Chloride 0.9% 1, 750 000 ml @ 75 mls/hr IV . [id number] [facility] Rx#:[id number] Oral 240 720 Other: Voiding Method Toilet # Voids 1 1 - Labs CBC & Chem 7: 12/07/20 06:44 12/08/20 06:40 Labs: Abnormal Lab Results - Last 24 Hours (Table) 12/08/20 12/08/20 12/08/20 Range/Units 06:04 06:40 06:40 PT 19.6 H (9.0-12.0) sec INR 2.0 H (<1.2) Sodium 136 L (137-145) mmol/L BUN 64 H (9-20) mg/dL Creatinine 3.04 H (0.66-1.25) mg/dL Glucose 153 H (74-99) mg/dL POC Glucose (mg/dL) 144 H (75-99) mg/dL 12/08/20 12/08/20 12/08/20 Range/Units 11:43 16:45 19:31 PT (9.0-12.0) sec INR (<1.2) Sodium (137-145) mmol/L BUN (9-20) mg/dL Creatinine (0.66-1.25) mg/dL Glucose (74-99) mg/dL POC Glucose (mg/dL) 206 H 202 H 240 H (75-99) mg/dL
[2020-12-08] MEDS: ATORVASTATIN 20 MG TAB PO SCH (20:16)
[2020-12-08] MEDS: INSULIN DETEMIR (LEVEMIR) 100 UNIT/ML SYR SQ SCH (20:16)
[2020-12-09] MEDS: INSULIN ASPART (NovoLOG) 100 UNIT/ML VIAL SQ SCH ×4 (06:05→20:45)
[2020-12-09 06:07] LABS: Glucose,Whole Blood 127 mg/dL (75-99)
[2020-12-09 07:52] LABS: INR 1.7 (<1.2); Prothrombin Time 16.9 sec (9.0-12.0)
[2020-12-09] MEDS: LEVOTHYROXINE 50 MCG TAB PO SCH (08:42)
--- NOTE | 2020-12-09 09:07 | P.PN ---
Subjective Patient is seen in follow-up for acute kidney injury. Labs from this morning pending. Again became hypotensive last night upon standing. Has been voiding. No vomiting or diarrhea. Vital signs are stable. General: The patient appeared well nourished and normally developed. HEENT: Head exam is unremarkable. Neck is without jugular venous distension. LUNGS: Breath sounds decreased. HEART: Rate and Rhythm are regular. ABDOMEN: Soft, no distention. EXTREMITITES: No edema. Objective - Vital Signs Vital signs: Vital Signs Temp 97.8 F 12/09/20 07:56 Pulse 84 12/09/20 07:56 Resp 20 12/09/20 07:56 BP 158/74 12/09/20 07:56 Pulse Ox 96 12/09/20 07:56 Intake & Output 12/08/20 12/09/20 12/09/20 18:59 06:59 18:59 Intake Total 720 1062 240 Output Total 750 200 Balance 720 312 40 Weight 95.1 kg Intake: Intake, IV Titration 825 Amount Sodium Chloride 0.9% 1, 825 000 ml @ 75 mls/hr IV . [id number] [facility] Rx#:[id number] Oral 720 237 240 Output: Urine 750 200 Other: # Voids 1 1 - Labs CBC & Chem 7: 12/07/20 06:44 12/08/20 06:40 Labs: Abnormal Lab Results - Last 24 Hours (Table) 12/08/20 12/08/20 12/08/20 Range/Units 11:43 16:45 19:31 PT (9.0-12.0) sec INR (<1.2) POC Glucose (mg/dL) 206 H 202 H 240 H (75-99) mg/dL 12/09/20 12/09/20 Range/Units 06:04 06:52 PT 16.9 H (9.0-12.0) sec INR 1.7 H (<1.2) POC Glucose (mg/dL) 127 H (75-99) mg/dL Assessment and Plan Plan: Assessment: 1. Acute kidney injury mostly prerenal improving with IV fluids. Creatinine 3.4 on admission and 3.04 as of yesterday. 2. Chronic kidney disease stage IV with baseline creatinine in the range of 2.1-2.4 secondary to diabetic kidney disease. 3. Syncopal episode. Cardiology following. Has orthostatic hypotension. 4. Diabetes mellitus. Plan: Maintain IV fluids. Hold diuretics. Monitor orthostatic vital signs every shift. Check morning cortisol level. Add midodrine. Avoid nephrotoxins. Continue to monitor renal function and urine output.
[2020-12-09 09:25] LABS: Calcium 8.5 mg/dL (8.4-10.2)
--- NOTE | 2020-12-09 10:55 | PN ---
PROGRESS NOTE CHIEF COMPLAINT: Syncope, dehydration and prerenal azotemia with chronic renal failure. HISTORY OF PRESENT ILLNESS: This gentleman is doing well and feeling fine. Vital signs are normal. Blood sugar is good. He has been documented as having orthostatic hypotension with systolics dropping into the 70s. PHYSICAL EXAM: His chest is clear. Cardiac exam is unchanged. Abdomen is soft, nontender. IMPRESSION: 1. Dehydration. 2. Orthostatic hypotension. 3. Prerenal azotemia. 4. Chronic renal failure. 5. Type 2 diabetes mellitus. PLAN: Continue with rehydration and monitoring of his renal function. MMODL / IJN: [id number] /
[2020-12-09 11:43] LABS: Glucose,Whole Blood 158 mg/dL (75-99)
[2020-12-09] MEDS: MIDODRINE 5 MG TAB PO SCH ×2 (12:18→17:09)
[2020-12-09] MEDS: SODIUM CHLORIDE 0.9% 1,000 ML IV SCH (13:01)
[2020-12-09 17:02] LABS: Glucose,Whole Blood 137 mg/dL (75-99)
[2020-12-09] MEDS ORDERED: WARFARIN 1.25 MG TAB PO SCH (18:00)
[2020-12-09] MEDS ORDERED: WARFARIN 2 MG TAB PO ONE (18:00)
[2020-12-09 20:31] LABS: Glucose,Whole Blood 198 mg/dL (75-99)
[2020-12-09] MEDS: ATORVASTATIN 20 MG TAB PO SCH (20:45)
[2020-12-09] MEDS: INSULIN DETEMIR (LEVEMIR) 100 UNIT/ML SYR SQ SCH (20:45)
[2020-12-10] MEDS: SODIUM CHLORIDE 0.9% 1,000 ML IV SCH ×2 (05:25→20:31)
[2020-12-10 06:05] LABS: Glucose,Whole Blood 112 mg/dL (75-99)
[2020-12-10] MEDS: MIDODRINE 5 MG TAB PO SCH ×3 (06:28→16:02)
[2020-12-10] MEDS: INSULIN ASPART (NovoLOG) 100 UNIT/ML VIAL SQ SCH ×4 (06:29→20:37)
[2020-12-10 08:21] LABS: INR 1.6 (<1.2); Prothrombin Time 16.2 sec (9.0-12.0)
[2020-12-10 08:25] LABS: Calcium 8.6 mg/dL (8.4-10.2); Magnesium 1.9 mg/dL (1.6-2.3); Potassium 4.2 mmol/L (3.5-5.1)
--- NOTE | 2020-12-10 08:54 | P.PN ---
Subjective Patient is seen in follow-up for acute kidney injury. Renal function slowly improving. Blood pressure better this morning. No orthostatic hypotension. Has been voiding. No vomiting or diarrhea. Vital signs are stable. General: The patient appeared well nourished and normally developed. HEENT: Head exam is unremarkable. Neck is without jugular venous distension. LUNGS: Breath sounds decreased. HEART: Rate and Rhythm are regular. ABDOMEN: Soft, no distention. EXTREMITITES: No edema. Objective - Vital Signs Vital signs: Vital Signs Temp 97.5 F L 12/10/20 04:55 Pulse 84 12/10/20 04:55 Resp 18 12/10/20 04:55 BP 135/74 12/10/20 04:55 Pulse Ox 97 12/10/20 04:55 Intake & Output 12/09/20 12/10/20 12/10/20 18:59 06:59 18:59 Intake Total 720 120 Output Total 1100 1300 Balance -380 -1300 120 Weight 95.8 kg Intake: Oral 720 120 Output: Urine 1100 1300 Other: Voiding Method Toilet Urinal - Labs CBC & Chem 7: 12/07/20 06:44 12/10/20 07:35 Labs: Abnormal Lab Results - Last 24 Hours (Table) 12/09/20 12/09/20 12/09/20 Range/Units 06:52 11:41 17:00 PT (9.0-12.0) sec INR (<1.2) BUN 48 H (9-20) mg/dL Creatinine 2.59 H (0.66-1.25) mg/dL Glucose 145 H (74-99) mg/dL POC Glucose (mg/dL) 158 H 137 H (75-99) mg/dL 12/09/20 12/10/20 12/10/20 Range/Units 20:29 06:03 07:35 PT (9.0-12.0) sec INR (<1.2) BUN 39 H (9-20) mg/dL Creatinine 2.40 H (0.66-1.25) mg/dL Glucose 131 H (74-99) mg/dL POC Glucose (mg/dL) 198 H 112 H (75-99) mg/dL 12/10/20 Range/Units 07:35 PT 16.2 H (9.0-12.0) sec INR 1.6 H (<1.2) BUN (9-20) mg/dL Creatinine (0.66-1.25) mg/dL Glucose (74-99) mg/dL POC Glucose (mg/dL) (75-99) mg/dL Assessment and Plan Plan: Assessment: 1. Acute kidney injury mostly prerenal improving with IV fluids. Creatinine 3.4 on admission and is down to 2.4 today. 2. Chronic kidney disease stage IV with baseline creatinine in the range of 2.1-2.4 secondary to diabetic kidney disease. 3. Syncopal episode. Cardiology following. Has orthostatic hypotension. Cortisol level normal. 4. Diabetes mellitus. Plan: Maintain IV fluids. Hold diuretics. Monitor orthostatic vital signs every shift. Maintain midodrine. Avoid nephrotoxins. Continue to monitor renal function and urine output.
[2020-12-10] MEDS: LEVOTHYROXINE 50 MCG TAB PO SCH (09:04)
[2020-12-10 11:21] LABS: Glucose,Whole Blood 278 mg/dL (75-99)
[2020-12-10 16:25] LABS: Glucose,Whole Blood 189 mg/dL (75-99)
[2020-12-10] MEDS ORDERED: WARFARIN 2 MG TAB PO ONE (18:00)
[2020-12-10 20:03] LABS: Glucose,Whole Blood 207 mg/dL (75-99)
[2020-12-10] MEDS: ATORVASTATIN 20 MG TAB PO SCH (20:36)
[2020-12-10] MEDS: INSULIN DETEMIR (LEVEMIR) 100 UNIT/ML SYR SQ SCH (20:36)
--- NOTE | 2020-12-10 20:51 | PN ---
PROGRESS NOTE CHIEF COMPLAINT: Syncope and orthostatic hypotension. HISTORY OF PRESENT ILLNESS: This gentleman is doing well. He has not had any shortness of breath, chest pain, etc., and renal function is slightly improved. PHYSICAL EXAMINATION: His chest is clear. Cardiac exam is unremarkable. Abdomen is soft, nontender. IMPRESSION: 1. Orthostatic hypotension with syncope. 2. Atrial fibrillation. 3. Diabetes. PLAN: Try to increase activity. He has also been started on midodrine to see if this will hold his blood pressure when he stands, after which he could go home. MMODL / IJN: [id number] /
[2020-12-11 06:12] LABS: Glucose,Whole Blood 101 mg/dL (75-99)
[2020-12-11] MEDS: INSULIN ASPART (NovoLOG) 100 UNIT/ML VIAL SQ SCH (06:41)
[2020-12-11] MEDS: MIDODRINE 5 MG TAB PO SCH (06:42)
[2020-12-11 08:49] LABS: Calcium 8.8 mg/dL (8.4-10.2)
[2020-12-11 08:54] LABS: Magnesium 1.9 mg/dL (1.6-2.3); Potassium 4.4 mmol/L (3.5-5.1)
[2020-12-11] MEDS: LEVOTHYROXINE 50 MCG TAB PO SCH (08:58)
[2020-12-11 09:06] VITALS: BP 161/83; PULSE 83; RESP 20; TEMP 97.6
[2020-12-11 09:18] LABS: INR 1.6 (<1.2); Prothrombin Time 16.4 sec (9.0-12.0)
--- NOTE | 2020-12-11 09:26 | P.PN ---
Subjective Patient is seen in follow-up for acute kidney injury. Renal function slowly improving. Orthostatic vitals stable. Has been voiding. No vomiting or diarrhea. Vital signs are stable. General: The patient appeared well nourished and normally developed. HEENT: Head exam is unremarkable. Neck is without jugular venous distension. LUNGS: Breath sounds decreased. HEART: Rate and Rhythm are regular. ABDOMEN: Soft, no distention. EXTREMITITES: No edema. Objective - Vital Signs Vital signs: Vital Signs Temp 97.6 F 12/11/20 08:00 Pulse 83 12/11/20 08:00 Resp 20 12/11/20 08:00 BP 161/83 12/11/20 08:00 Pulse Ox 97 12/11/20 08:00 Intake & Output 12/10/20 12/11/20 12/11/20 18:59 06:59 18:59 Intake Total 1358 240 Output Total 300 Balance 1058 240 Weight 95.8 kg Intake: Intake, IV Titration 400 Amount Sodium Chloride 0.9% 1, 400 000 ml @ 50 mls/hr IV . Q20H [facility] Rx#:[id number] Oral 958 240 Output: Urine 300 Other: Voiding Method Toilet Toilet Urinal Urinal # Voids 1 # Bowel Movements 1 - Labs CBC & Chem 7: 12/07/20 06:44 12/11/20 07:57 Labs: Abnormal Lab Results - Last 24 Hours (Table) 12/10/20 12/10/20 12/10/20 Range/Units 11:19 16:23 20:02 PT (9.0-12.0) sec INR (<1.2) BUN (9-20) mg/dL Creatinine (0.66-1.25) mg/dL Glucose (74-99) mg/dL POC Glucose (mg/dL) 278 H 189 H 207 H (75-99) mg/dL 12/11/20 12/11/20 12/11/20 Range/Units 06:12 07:57 07:57 PT 16.4 H (9.0-12.0) sec INR 1.6 H (<1.2) BUN 39 H (9-20) mg/dL Creatinine 2.25 H (0.66-1.25) mg/dL Glucose 125 H (74-99) mg/dL POC Glucose (mg/dL) 101 H (75-99) mg/dL Assessment and Plan Plan: Assessment: 1. Acute kidney injury mostly prerenal improving with IV fluids. Creatinine 3.4 on admission and is down to 2.25 today. 2. Chronic kidney disease stage IV with baseline creatinine in the range of 2.1-2.4 secondary to diabetic kidney disease. 3. Syncopal episode. Cardiology following. Has orthostatic hypotension - improved with midodrine. Cortisol level normal. 4. Diabetes mellitus. Plan: Hep-Lock IV fluids. Hold diuretics. Monitor orthostatic vital signs every shift. Maintain midodrine. Avoid nephrotoxins. Continue to monitor renal function and urine output.
[2020-12-11] MEDS ORDERED: WARFARIN 5 MG TAB PO ONE (18:00)
--- NOTE | 2020-12-11 23:39 | DS ---
DISCHARGE SUMMARY CHIEF COMPLAINT: Syncope and dehydration. HISTORY OF PRESENT ILLNESS AND PHYSICAL EXAMINATION: Details of this man's history and physical can be found in the initial workup. LABORATORY STUDIES: While he was in the hospital, he had laboratory studies, details of which can be found in the laboratory section of the chart. COURSE IN THE HOSPITAL: After admission, he was placed on bedrest, started intravenous fluids. He did have some orthostatic hypotension. He was seen by Cardiology and Nephrology for his renal failure. He did improve, but he continued to have hypotension and he was started on midodrine. He did well after that. He was stable and felt that he could go home on his usual activity and medication plus midodrine. He will be followed up in the office in several days. FINAL DIAGNOSES: 1. Syncope. 2. Orthostatic hypotension. 3. Dehydration. 4. Renal failure. 5. Congestive heart failure. 6. Type 2 diabetes mellitus. OPERATIONS: None. CONSULTATION: Cardiology and Nephrology. He is improved. MMNAYL / DAHIANAN: [id number] /
[2020-12-12] MEDS ORDERED: LEVOTHYROXINE 50 MCG TAB PO SCH (06:30)
== END 2020-12-11 11:11 | disposition home or self-care (01) | DRG 312 ==
LOC: EC 06:28 → 3SCARD 10:39
PROVIDERS: ADMIT Family Medicine; ATTEND Family Medicine
DX: I95.1 Orthostatic hypotension (principal); I13.0 Hypertensive heart and chronic kidney disease with heart failure and stage 1 through stage 4 chronic kidney disease, or unspecified chronic kidney disease; N17.9 Acute kidney failure, unspecified; N18.4 Chronic kidney disease, stage 4 (severe); E86.0 Dehydration; E03.9 Hypothyroidism, unspecified; E11.22 Type 2 diabetes mellitus with diabetic chronic kidney disease; E11.51 Type 2 diabetes mellitus with diabetic peripheral angiopathy without gangrene; E78.5 Hyperlipidemia, unspecified; I48.91 Unspecified atrial fibrillation; I50.9 Heart failure, unspecified; M19.90 Unspecified osteoarthritis, unspecified site; T50.2X5A Adverse effect of carbonic-anhydrase inhibitors, benzothiadiazides and other diuretics, initial encounter; Z91.81 History of falling; Z79.01 Long term (current) use of anticoagulants; Z79.84 Long term (current) use of oral hypoglycemic drugs; Z79.890 Hormone replacement therapy; Z79.899 Other long term (current) drug therapy; Z82.49 Family history of ischemic heart disease and other diseases of the circulatory system; Z83.3 Family history of diabetes mellitus; Z87.891 Personal history of nicotine dependence; Z96.652 Presence of left artificial knee joint; Z98.49 Cataract extraction status, unspecified eye; Z98.890 Other specified postprocedural states; Z91.041 Radiographic dye allergy status; Z80.9 Family history of malignant neoplasm, unspecified
CPT/HCPCS: 36415; 71046; 80048; 80053; 81001; 82533; 83735; 83880; 84484; 85025; 85610; 85730; 93005; 93306; 96374; 99285

== ENCOUNTER → 2021-01-18 | Outpatient (CLI) | payer MEDICARE, BC ==
--- NOTE | 2021-01-18 13:02 | US ---
EXAMINATION TYPE: US kidneys/renal and bladder DATE OF EXAM: 01/18/2021 COMPARISON: US, CT CLINICAL HISTORY: N18.4 stage 4 kidney disease. CKD Stage IV. EXAM MEASUREMENTS: Right Kidney: 10.4 x 5.1 x 5.0 cm Left Kidney: 10.5 x 5.2 x 4.9 cm Limited visibility. Right Kidney: Cortex appears thin. Collecting system appears to be dilated. Hypoechoic area seen infe rior pole: 1.9 x 1.8 x 1.5 cm. Hyperechoic focus seen 0.3 x 0.5 x 0.3 cm. Left Kidney: Cortex appears thin. Collecting system appears to be dilated. Bladder: Appears anechoic. Bilateral Jets seen: Yes IMPRESSION: Renal parenchymal thinning. Renal cortical cysts.
== END | disposition home or self-care (01) ==
LOC: RADUSWWP 12:23
PROVIDERS: ATTEND Internal Medicine
DX: N18.4 Chronic kidney disease, stage 4 (severe) (principal); N28.1 Cyst of kidney, acquired; N28.89 Other specified disorders of kidney and ureter
CPT/HCPCS: 76770

== ENCOUNTER → 2021-07-05 | Outpatient (CLI) | payer MEDICARE, BC ==
--- NOTE | 2021-07-06 12:27 | CT ---
EXAMINATION TYPE: CT abdomen pelvis wo con DATE OF EXAM: 07/05/2021 COMPARISON: 05/13/2020 HISTORY: HEMATURIA CT DLP: 1021.5 mGycm Automated exposure control for dose reduction was used. TECHNIQUE: Helical acquisition of images was performed from the lung bases through the pelvis. FINDINGS: LUNG BASES: Emphysematous changes are seen and there is interlobular septal thickening to S1 with chr onic interstitial lung disease. Bilateral lower lobe consolidation is also noted. Heart size prominen t. Annular calcification noted.. LIVER/GB: Postcholecystectomy changes noted. PANCREAS: Marked atrophy of the pancreas. SPLEEN: No significant abnormality is seen. ADRENALS: Thickening of the left adrenal gland can be associated with tiny adenoma or hyperplasia. KIDNEYS: Small exophytic hypodensity measuring 1.2 cm anterior margin right kidney too small to justina cterize. Cortical thinning suggest chronic medical renal disease. Cortical lesion similar to the prio r exam of 2020. No hydronephrosis or nephrolithiasis. ADENOPATHY: None visualized. OSSEOUS STRUCTURES: Hypertrophic and degenerative changes of the spine. Arthropathy of the hips. BOWEL: The bowel gas pattern nonspecific with no obstruction. Changes of diverticulosis are seen. OTHER: Atherosclerotic change aorta which is of normal caliber. Correlate for previous surgery anteri or abdominal wall suggestive of ventral hernia repair. IMPRESSION: 1. 1.2 cm exophytic lesion anterior cortex mid right kidney is stable from prior exam. Limited assess ment due to lack of contrast but measures 12 Hounsfield units and therefore most compatible with simp le cyst. Bilateral cortical thinning suggest chronic medical renal disease. 2. No hydronephrosis or nephrolithiasis. Bladder is somewhat decompressed which may account for mild wall thickening correlate clinically and with cystoscopy as warranted. 3. Diverticulosis. 4. Pancreatic atrophy 5. COPD with findings suggestive of pulmonary fibrosis and bibasilar suspected chronic atelectasis
== END | disposition home or self-care (01) ==
LOC: RADCTMAIN 17:19
PROVIDERS: ATTEND Urology
DX: N28.89 Other specified disorders of kidney and ureter (principal); K57.90 Diverticulosis of intestine, part unspecified, without perforation or abscess without bleeding; K86.89 Other specified diseases of pancreas; J44.9 Chronic obstructive pulmonary disease, unspecified; N32.89 Other specified disorders of bladder
CPT/HCPCS: 74176

== ENCOUNTER 2022-01-14 16:18 | Emergency (ER) | payer MEDICARE, BC ==
[2022-01-14 16:25] VITALS: TEMP 97.7
--- NOTE | 2022-01-14 17:28 | CT ---
EXAMINATION TYPE: CT facial bones wo con CT DLP: 1266.1 mGycm, Automated exposure control for dose reduction was used. DATE OF EXAM: 01/14/2022 5:20 PM COMPARISON: CT head same day.. CLINICAL INDICATION:Male, 86 years old with history of fall abrasions; pain after fall. bloody raised abrasion above rt eye TECHNIQUE: Multiple unenhanced axial CT images were obtained of the facial bones soft tissue and bone windows. Coronal, axial and sagittal reformatted images were also provided in soft tissue and bone windows and submitted for interpretation. FINDINGS: Right frontal scalp hematoma/edema. There is no evidence of fracture, subluxation, dislocation. The orbital contents are unremarkable.The temporal-mandibular joints appear symmetric mild degeneration changes. Mild paranasal sinus disease. Bilateral aphakia.. Atherosclerosis of the arterial vasculature. IMPRESSION: 1. No evidence of facial bone fracture. 2. Frontal scalp hematoma/edema.
--- NOTE | 2022-01-14 17:29 | CT ---
EXAMINATION TYPE: CT brain cspine wo con CT DLP: 1266.1 mGycm, Automated exposure control for dose reduction was used. DATE OF EXAM: 01/14/2022 5:19 PM COMPARISON: None.. CLINICAL INDICATION:Male, 86 years old with history of fall abrasion; pain after fall. bloody raised abrasion above rt eye TECHNIQUE: Brain: Multiple axial CT images of the brain were obtained without IV contrast. Cspine: Axial CT images from the skull base to the inferior aspect of T2 we obtained without intraven ous contrast. Coronal and sagittal reformatted images were also reviewed. FINDINGS: Brain: Extra-axial spaces: No abnormal extra-axial fluid collections. Ventricular system: Within normal limits Cerebral parenchyma: No acute intraparenchymal hemorrhage or mass effect. The dugan-white junction is well differentiated. Cerebellum: Unremarkable. Mass effect: No evidence of midline shift. Intracranial vasculature: Atherosclerotic calcifications of the intracranial vessels. Soft tissues: Right frontal scalp edema/hematoma. Calvarium/osseous structures: No depressed skull fracture. Paranasal sinuses and mastoid air cells: Mild paranasal sinus disease. Visualized orbits: Bilateral aphakia Cervical spine: Fracture: None. Osseous structures: Multilevel degenerative disc disease changes with endplate spurring and disc oste ophyte complex's. Sedation the posterior longitudinal ligament at T3. Vertebral alignment: Within normal limits. Spinal canal/Neural Foramina: No evidence of significant spinal canal narrowing. No evidence for sign ificant neural foraminal stenosis. Neck soft tissues: Prevertebral soft tissues are within normal limits. This calcifications of the nuc miguel ligament posterior to the spinous processes. Other: The airway is patent. The lung apices are clear. IMPRESSION: 1. No acute intracranial process. 2. Right frontal scalp edema/hematoma. 3. No evidence of cervical spine fracture. 4. Mild multilevel degenerative disc disease.
[2022-01-14] MEDS ORDERED: BACITRACIN OINT 1 EACH PACKET TOPICAL ONE (19:08)
[2022-01-14] MEDS ORDERED: DIPH,PERTUS(ACELL)TETVAC-LF 0.5 ML VIAL IM ONE (19:08)
--- NOTE | 2022-01-14 19:16 | ED ---
Fall HPI - General Chief Complaint: Fall Stated Complaint: fall Time Seen by Provider: 01/14/22 19:02 Source: patient, RN notes reviewed Mode of arrival: wheelchair - History of Present Illness Initial Comments: This is a pleasant 86-year-old male who presents to the transfer after sustaining a mechanical fall. Patient states he was walking into an office and just tripped. Patient had no preceding symptomology. There is no headache preceding. There is no chest pain. No vision change. No vertigo. No lightheadedness. Patient recalls the entire event. There was no loss of consciousness. No vomiting episodes. Patient has been up and walking without difficulty. Denying any significant pain other than some mild neck pain. Headache. Last tetanus is unknown. Patient is on warfarin chronically. No headache, no fever or chills, no changes in vision or hearing, no sore throat or difficulty with speech, no neck pain, no chest pain or shortness of breath, no abdominal pain, no nausea or vomiting, no changes in urination or bowel movements, no numbness or tingling, no extremity pain, no skin rashes or lesions. Past medical, surgical, social, and family history reviewed. Complaint: fall - Related Data Home Medications Medication Instructions Recorded Confirmed Atorvastatin [Lipitor] 20 mg PO HS 05/13/20 12/07/20 Furosemide [Lasix] 40 mg PO Q48H 12/07/20 12/07/20 Levothyroxine Sodium [Synthroid] 50 mcg PO DAILY 12/07/20 12/07/20 Warfarin [Coumadin] 2.5 mg PO TUSA@0900 12/07/20 12/07/20 Warfarin [Coumadin] 3.75 mg PO SUMOWETHFR@0900 12/07/20 12/07/20 glipiZIDE [Glucotrol] 10 mg PO BID 12/07/20 12/07/20 Previous Rx's Medication Instructions Recorded Midodrine [ProAmatine] 5 mg PO AC-TID #30 tab 12/11/20 Allergies Allergy/AdvReac Type Severity Reaction Status Date / Time Iodinated Contrast Media Allergy Mild Rash/Hives Verified 01/14/22 16:25 [Iodinated Contrast Media - IV Dye] Review of Systems ROS Statement: Those systems with pertinent positive or pertinent negative responses have been documented in the HPI. ROS Other: All systems not noted in ROS Statement are negative. 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 , patient on warfarin for cardiovascular disease History of Any Multi-Drug Resistant Organisms: None Reported Past Surgical History: Hernia Repair, Joint Replacement Additional Past Surgical History / Comment(s): Lap bebeto fundoplasty, TUMOR RIGHT LUNG REMOVED, RIGHT CAROTID ENDARTERECTOMY, gastric surgery for rupture (pt does not know what ruptured), EGD, colonoscopy, CATARACTS., trk 04/07/17, left knee replacement Past Anesthesia/Blood Transfusion Reactions: No Reported Reaction, Motion Sickness Past Psychological History: No Psychological Hx Reported Smoking Status: Former smoker Past Alcohol Use History: Rare Past Drug Use History: None Reported - Past Family History Brother(s) Family Medical History: Diabetes Mellitus Sister(s) Family Medical History: Cancer Mother Family Medical History: Congestive Heart Failure (CHF), Coronary Artery Disease (CAD) Additional Family Medical History / Comment(s): Mother of CHF at age 83 yrs. Father Family Medical History: Myocardial Infarction (MD) Additional Family Medical History / Comment(s): Father of MD at age 60 yrs General Exam - General Exam Comments Initial Comments: This is a healthy, well-developed, well-nourished 86-year-old male in no distress. Cranial nerves II through XII are intact. Patient is alert and oriented 4. Does not appear to be ill or toxic. Vital signs are reviewed. Limitations: no limitations General appearance: alert, in no apparent distress Head exam: Present: other (Patient has a hematoma to the right forehead area with overlying abrasion. Is also small abrasion to the nose. However, there is no tenderness to the facial bones, no scalp tenderness. No step-off. Head is normocephalic/atraumatic otherwise.) Eye exam: Present: normal appearance, PERRL, EOMI. Absent: scleral icterus, conjunctival injection, periorbital swelling ENT exam: Present: normal exam, normal oropharynx, mucous membranes moist, TM's normal bilaterally, normal external ear exam. Absent: mucous membranes dry Neck exam: Present: normal inspection, full ROM. Absent: tenderness, meningismus, lymphadenopathy Respiratory exam: Present: normal lung sounds bilaterally. Absent: respiratory distress, wheezes, rales, rhonchi, stridor Cardiovascular Exam: Present: regular rate, normal rhythm, normal heart sounds. Absent: systolic murmur, diastolic murmur, rubs, gallop, clicks GI/Abdominal exam: Present: soft, normal bowel sounds. Absent: distended, tenderness, guarding, rebound, rigid Extremities exam: Present: full ROM (Full in all major joints. Full muscle strength on major muscle groups.), normal capillary refill. Absent: normal inspection (Superficial abrasions to the bilateral knees without bony point tenderness. Full range of motion), tenderness, pedal edema, joint swelling, calf tenderness Back exam: Present: normal inspection Neurological exam: Present: alert, oriented X3, CN II-XII intact, normal gait. Absent: motor sensory deficit Expanded Patient oriented to: Present: person, place, time Speech: Present: fluid speech Cranial nerves: EOM's Intact: Normal, Gag Reflex: Normal, Tongue Deviation: Normal, Nystagmus: Normal, Facial Sensation: Normal, Facial Palsy with Forehead Movement: Normal, Facial Palsy without Forehead Movement: Normal Cerebellar function: Finger to Nose: Normal, Heel to Suazo: Normal Sensory exam: Upper Extremity Light Touch: Normal, Lower Extremity Light Touch: Normal Motor strength exam: RUE: 5, LUE: 5, RLE: 5, LLE: 5 Eye Response: (4) open spontaneously Motor Response: (6) obeys commands Verbal Response: (5) oriented [place] Total: 15 Psychiatric exam: Present: normal affect, normal mood Skin exam: Present: warm, dry, intact, normal color. Absent: rash Course Vital Signs 01/14/22 16:20 Temperature 97.7 F Pulse Rate 55 L Respiratory 16 Rate Blood Pressure 195/85 O2 Sat by Pulse 98 Oximetry Medical Decision Making - Medical Decision Making This patient presented to the ER after mechanical fall. Patient had no evidence of significant injury. Superficial abrasions noted to the forehead, face, bilateral knees. However no bony point tenderness. CT of the brain and cervical spine showed no acute process. Patient was neurologically intact. Patient had no preceding symptomology. Patient is taking warfarin for cardiovascular disease. Discussed head injury instructions in detail. Patient lives with family members who will observe the patient at all times the next 24 hours. Patient was told to return to the ER for any signs or symptoms worsen. Told to return immediately if any other problems arise. All questions answered. Treatment plan discussed. Patient in agreement Every effort has been made to ensure accuracy of this dictation. However, due to the limitations of electronic medical records and dictation devices, errors in charting still occur. Note was made of the patient's stressful pressure which was 195/85. Patient on antihypertensives at home which she has to take this evening so. Patient currently asymptomatic. We'll have patient go home and take his own medications as directed. Patient voiced understanding Patient voices full understanding of all instructions. Supervising physician Dr. Guerrero - Radiology Data Radiology results: report reviewed, image reviewed Disposition Clinical Impression: Fall, Closed head injury, Multiple abrasions, Elevated blood pressure reading Disposition: HOME SELF-CARE Condition: Good Instructions (If sedation given, give patient instructions): Fall Prevention for Older Adults (ED), Head Injury (ED), Abrasion (ED) Additional Instructions: Make sure you take her home blood pressure medications as directed by her regular doctor. Follow-up with your regular physician to have the blood pre ssure monitored as well. TDap was updated. Make sure you follow the head injury instructions as directed. Ensure that somebodies with you at all times for the next 24 hours. Follow-up with your regular physician as directed. Return to the ER immediately if any symptoms worsen, new symptoms arise, or any other problems develop. Is patient prescribed a controlled substance at d/c from ED?: No Referrals: Michael Oneil MD [Primary Care Provider] - 1-2 days Time of Disposition: 19:15
[2022-01-14 19:39] VITALS: BP 191/89; PULSE 60; RESP 18
== END 2022-01-14 19:25 | disposition home or self-care (01) ==
LOC: EC 16:18
DX: S00.81XA Abrasion of other part of head, initial encounter (principal); S80.211A Abrasion, right knee, initial encounter; S80.212A Abrasion, left knee, initial encounter; S09.90XA Unspecified injury of head, initial encounter; Z23 Encounter for immunization; I10 Essential (primary) hypertension; E11.9 Type 2 diabetes mellitus without complications; E78.5 Hyperlipidemia, unspecified; M19.90 Unspecified osteoarthritis, unspecified site; E07.9 Disorder of thyroid, unspecified; Z87.891 Personal history of nicotine dependence; Z91.041 Radiographic dye allergy status; Z79.890 Hormone replacement therapy; Z79.899 Other long term (current) drug therapy; W01.0XXA Fall on same level from slipping, tripping and stumbling without subsequent striking against object, initial encounter
CPT/HCPCS: 70450; 70486; 72125; 90471; 90715; 99284

== ENCOUNTER 2023-01-26 09:08 | Inpatient (IN) | payer MEDICARE, BC ==
[2023-01-26] MEDS ORDERED: SODIUM CHLORIDE 0.9% 500 ML 500 ML IV STA (09:28)
[2023-01-26 10:13] LABS: INR 2.4 (<1.2); Partial Thromboplastin Time 26.6 sec (22.0-30.0); Prothrombin Time 23.2 sec (9.0-12.0)
[2023-01-26 10:14] LABS: Basophils % (A) 0 %; Eosinophils % (A) 0 %; HCT 40.3 % (39.0-53.0); HGB 12.9 gm/dL (13.0-17.5); Lymphocytes # (A) 0.5 k/uL (1.0-4.8); Lymphocytes % (A) 4 %; MCH 29.5 pg (25.0-35.0); MCHC 32.1 g/dL (31.0-37.0); MCV 91.8 fL (80.0-100.0); Mean Platelet Volume 8.3; Monocytes # (A) 0.4 k/uL (0-1.0); Monocytes % (A) 4 %; Neutrophils # (A) 11.7 k/uL (1.3-7.7); Neutrophils % (A) 92 %; Platelet Count 239 k/uL (150-450); RDW 14.5 % (11.5-15.5); WBC 12.7 k/uL (3.8-10.6)
[2023-01-26 10:27] LABS: ALT 21 U/L (4-49); AST 22 U/L (17-59); African American GFR (CKD) 22 (>60 ml/min/1.73 sqM); Albumin 3.6 g/dL (3.5-5.0); Alkaline Phosphatase 107 U/L (38-126); Anion Gap 12 mmol/L; Blood Urea Nitrogen 37 mg/dL (9-20); Calcium 8.9 mg/dL (8.4-10.2); Carbon Dioxide 18 mmol/L (22-30); Chloride 107 mmol/L (98-107); Glucose 267 mg/dL (74-99); Lipase 37 U/L (23-300); Non-African American GFR(CKD) 19 (>60 ml/min/1.73 sqM); Potassium 4.6 mmol/L (3.5-5.1); Sodium 137 mmol/L (137-145); Total Bilirubin 0.9 mg/dL (0.2-1.3); Total Protein 6.8 g/dL (6.3-8.2)
--- NOTE | 2023-01-26 10:41 | CT ---
EXAMINATION TYPE: CT abdomen pelvis wo con DATE OF EXAM: 01/26/2023 COMPARISON: 07/05/2009 HISTORY: abd pain CT DLP: 1319 mGycm Automated exposure control for dose reduction was used. TECHNIQUE: Helical acquisition of images was performed from the lung bases through the pelvis. FINDINGS: LUNG BASES: Basilar emphysematous changes with subsegmental consolidation bilaterally heart is enlarg ed atherosclerotic change aorta. [id number] sized. There is a right lower lobe pulmonary nodul e with calcification stable from prior exam measuring 1.1 cm LIVER/GB: Postcholecystectomy. PANCREAS: Diffuse atrophy pancreas. SPLEEN: No significant abnormality is seen. ADRENALS: Bilateral adrenal nodules stable likely on the basis of incidental adenoma. KIDNEYS: Bilateral renal cortical thickening with 1 cm hypodensity lateral right renal cortex likely related to simple cyst. FREE AIR: No free air is visualized RETROPERITONEAL ADENOPATHY: None visualized URINARY BLADDER: No significant abnormality is seen. PELVIC ADENOPATHY: None visualized. OSSEOUS STRUCTURES: Bilateral hip arthropathy and multilevel hypertrophic and degenerative disc dise ase.. Hypertrophic arthropathy of the SI joints. BOWEL: Numerous dilated small bowel loops with marked gastric distention. There is a marked decompre ssion of the distal small bowel. The dilated pelvic small bowel loops are seen to suspect that there is a ileal transition point and high-grade obstruction. Report discussed with ER clinician 10:31 AM 1 . OTHER: Previous surgery involving wall. Hyperdensity seen in the mesentery appears posterior given it s stable from 07/05/2021. Atherosclerotic change vasculature. IMPRESSION: 1. Suspect high-grade small bowel obstruction likely within the ileum with a transition noted as demo nstrated by multiple decompressed distal small bowel loops. Would correlate with left chest level to exclude ischemic bowel. 2. Partially calcified 1.1 cm right lower lobe pulmonary nodule stable.
[2023-01-26] MEDS ORDERED: PROCHLORPERAZINE INJ 10 MG/2 ML VIAL IVP STA (10:54)
--- NOTE | 2023-01-26 11:05 | ED ---
Abdominal Pain HPI - General Chief Complaint: Abdominal Pain Stated Complaint: Abd Pain Time Seen by Provider: 01/26/23 09:13 Source: patient, family, EMS, RN notes reviewed Mode of arrival: EMS Limitations: no limitations - History of Present Illness Initial Comments: 87 show male presents emergency department via EMS chief complaint abdominal pain. Patient states that increase abdominal last couple days. 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 Patient states that he's had a prior bowel obstruction states is very nauseated and did receive Zofran prior arrival. Patient states she's not had any recent bowel movements. Patient denies fevers no chest pain. Patient's had prior hernia repair, - Related Data Home Medications Medication Instructions Recorded Confirmed Atorvastatin [Lipitor] 20 mg PO HS 05/13/20 12/07/20 Furosemide [Lasix] 40 mg PO Q48H 12/07/20 12/07/20 Levothyroxine Sodium [Synthroid] 50 mcg PO DAILY 12/07/20 12/07/20 Warfarin [Coumadin] 2.5 mg PO TUSA@0900 12/07/20 12/07/20 Warfarin [Coumadin] 3.75 mg PO SUMOWETHFR@0900 12/07/20 12/07/20 glipiZIDE [Glucotrol] 10 mg PO BID 12/07/20 12/07/20 Previous Rx's Medication Instructions Recorded Midodrine [ProAmatine] 5 mg PO AC-TID #30 tab 12/11/20 Allergies Allergy/AdvReac Type Severity Reaction Status Date / Time Iodinated Contrast Media Allergy Mild Rash/Hives Verified 01/26/23 09:22 [Iodinated Contrast Media - IV Dye] Penicillins Allergy Unknown Verified 01/26/23 09:25 Review of Systems ROS Statement: Those systems with pertinent positive or pertinent negative responses have been documented in the HPI. ROS Other: All systems not noted in ROS Statement are negative. 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 , patient on warfarin for cardiovascular disease History of Any Multi-Drug Resistant Organisms: None Reported Past Surgical History: Hernia Repair, Joint Replacement Additional Past Surgical History / Comment(s): Lap bebeto fundoplasty, TUMOR RIGHT LUNG REMOVED, RIGHT CAROTID ENDARTERECTOMY, gastric surgery for rupture (pt does not know what ruptured), EGD, colonoscopy, CATARACTS., trk 04/07/17, left knee replacement Past Anesthesia/Blood Transfusion Reactions: No Reported Reaction, Motion Sickness Past Psychological History: No Psychological Hx Reported Smoking Status: Former smoker Past Alcohol Use History: Rare Past Drug Use History: None Reported - Past Family History Brother(s) Family Medical History: Diabetes Mellitus Sister(s) Family Medical History: Cancer Mother Family Medical History: Congestive Heart Failure (CHF), Coronary Artery Disease (CAD) Additional Family Medical History / Comment(s): Mother of CHF at age 83 yrs. Father Family Medical History: Myocardial Infarction (CT) Additional Family Medical History / Comment(s): Father of CT at age 60 yrs General Exam Limitations: no limitations General appearance: alert, in no apparent distress Head exam: Present: atraumatic, normocephalic, normal inspection ENT exam: Present: mucous membranes dry. Absent: normal exam (Skin changes noted right upper lip region, right lower) Neck exam: Present: normal inspection. Absent: tenderness, meningismus, lymphadenopathy Respiratory exam: Present: normal lung sounds bilaterally. Absent: respiratory distress, wheezes, rales, rhonchi, stridor Cardiovascular Exam: Present: regular rate, normal rhythm, normal heart sounds. Absent: systolic murmur, diastolic murmur, rubs, gallop, clicks GI/Abdominal exam: Present: distended, tenderness, rigid, normal bowel sounds. Absent: soft, guarding, rebound Back exam: Absent: CVA tenderness (R), CVA tenderness (L) Course Vital Signs 01/26/23 01/26/23 09:13 10:32 Temperature 97.4 F L Pulse Rate 79 81 Respiratory 16 18 Rate Blood Pressure 143/66 145/61 O2 Sat by Pulse 95 97 Oximetry Medical Decision Making - Medical Decision Making Was pt. sent in by a medical professional or institution (, PA, INSPECTOR AND HAND PACKAGER, urgent care, hospital, or fpc...) When possible be specific @ -No Did you speak to anyone other than the patient for history (EMS, parent, family, police, friend...)? What history was obtained from this source @ -EMS and family providing past medical history, prehospital care and treatment Did you review nursing and triage notes (agree or disagree)? Why? @ -I reviewed and agree with nursing and triage notes Were old charts reviewed (outside hosp., previous admission, EMS record, old EKG, old radiological studies, urgent care reports/EKG's, fpc records)? Report findings @ -.Laboratory studies, surgery evaluation Differential Diagnosis (chest pain, altered mental status, abdominal pain women, abdominal pain men, vaginal bleeding, weakness, fever, dyspnea, syncope, headache, dizziness, GI bleed, back pain, seizure, CVA, palpatations, mental health, musculoskeletal)? @ -Differential Abdominal Pain Men: Appendicitis, cholecystitis, diverticulosis, ischemic bowel, pancreatitis, hepatitis, UTI, gastroenteritis, AAA, incarcerated hernia, bowel obstruction, constipation, inflammatory bowel, hepatitis, peptic ulcer disease, splenic infarction, perforated viscus, testicular torsion, this is not meant to be an all-inclusive liste EKG interpreted by me (3pts min.). @ -None X-rays interpreted by me (1pt min.). @ -None done CT interpreted by me (1pt min.). @ -CT of abdomen and pelvis showing no evidence of small bowel obstruction U/S interpreted by me (1pt. min.). @ -None done What testing was considered but not performed or refused? (CT, X-rays, U/S, labs)? Why? @ -None What meds were considered but not given or refused? Why? @ -None Did you discuss the management of the patient with other professionals (shanta drummond i.e. , PA, INSPECTOR AND HAND PACKAGER, lab, RT, psych nurse, social work instructor, water/wastewater project manager, teacher, emergency response officer, case checker)? Give summary @ -Dr. Oneil for admission with consult to surgery Was smoking cessation discussed for >3mins.? @ -No Was critical care preformed (if so, how long)? @ -no Were there social determinants of health that impacted care today? How? (Homelessness, low income, unemployed, alcoholism, drug addiction, transportation, low edu. Level, literacy, decrease access to med. care, detention, rehab)? @ -No Was there de-escalation of care discussed even if they declined (Discuss DNR or withdrawal of care, Hospice)? DNR status @ -No What co-morbidities impacted this encounter? (DM, HTN, Smoking, COPD, CAD, Cancer, CVA, ARF, Chemo, Hep., AIDS, mental health diagnosis, sleep apnea, morbid obesity)? @ -Cancer, prior obstruction Was patient admitted / discharged? Hospital course, mention meds given and route, prescriptions, significant lab abnormalities, going to OR and other pertinent info. @ -[Admitted patient has evidence of small bowel obstruction high-grade, NG tube was placed by RN. Patient will be admitted to medicine with surgery c sonjault. Family updated and results. Undiagnosed new problem with uncertain prognosis? @ -No Drug Therapy requiring intensive monitoring for toxicity (Heparin, Nitro, Insulin, Cardizem)? @ -No Were any procedures done? @ -No Diagnosis/symptom? @ -Small bowel obstruction Acute, or Chronic, or Acute on Chronic? @ -Acute Uncomplicated (without systemic symptoms) or Complicated (systemic symptoms)? @ -Complicated Side effects of treatment? @ -No Exacerbation, Progression, or Severe Exacerbation? @ -No Poses a threat to life or bodily function? How? (Chest pain, USA, CT, pneumonia, PE, COPD, DKA, ARF, appy, cholecystitis, CVA, Diverticulitis, Homicidal, Suicidal, threat to staff... and all critical care pts) @ -yes patient has surgical risk - Lab Data Result diagrams: 01/26/23 09:40 01/26/23 09:40 Lab Results 01/26/23 01/26/23 01/26/23 Range/Units 09:40 09:40 09:40 WBC 12.7 H (3.8-10.6) k/uL RBC 4.40 (4.30-5.90) m/uL Hgb 12.9 L (13.0-17.5) gm/dL Hct 40.3 (39.0-53.0) % MCV 91.8 (80.0-100.0) fL MCH 29.5 (25.0-35.0) pg MCHC 32.1 (31.0-37.0) g/dL RDW 14.5 (11.5-15.5) % Plt Count 239 (150-450) k/uL MPV 8.3 Neutrophils % 92 % Lymphocytes % 4 % Monocytes % 4 % Eosinophils % 0 % Basophils % 0 % Neutrophils # 11.7 H (1.3-7.7) k/uL Lymphocytes # 0.5 L (1.0-4.8) k/uL Monocytes # 0.4 (0-1.0) k/uL Eosinophils # 0.0 (0-0.7) k/uL Basophils # 0.0 (0-0.2) k/uL PT 23.2 H (9.0-12.0) sec INR 2.4 H (<1.2) APTT 26.6 (22.0-30.0) sec Sodium 137 (137-145) mmol/L Potassium 4.6 (3.5-5.1) mmol/L Chloride 107 (98-107) mmol/L Carbon Dioxide 18 L (22-30) mmol/L Anion Gap 12 mmol/L BUN 37 H (9-20) mg/dL Creatinine 2.90 H (0.66-1.25) mg/dL Est GFR (CKD-EPI)AfAm 22 (>60 ml/min/1.73 sqM) Est GFR (CKD-EPI)NonAf 19 (>60 ml/min/1.73 sqM) Glucose 267 H (74-99) mg/dL Plasma Lactic Acid Skyler (0.7-2.0) mmol/L Calcium 8.9 (8.4-10.2) mg/dL Total Bilirubin 0.9 (0.2-1.3) mg/dL AST 22 (17-59) U/L ALT 21 (4-49) U/L Alkaline Phosphatase 107 (38-126) U/L Total Protein 6.8 (6.3-8.2) g/dL Albumin 3.6 (3.5-5.0) g/dL Lipase 37 (23-300) U/L 01/26/23 Range/Units 09:40 WBC (3.8-10.6) k/uL RBC (4.30-5.90) m/uL Hgb (13.0-17.5) gm/dL Hct (39.0-53.0) % MCV (80.0-100.0) fL MCH (25.0-35.0) pg MCHC (31.0-37.0) g/dL RDW (11.5-15.5) % Plt Count (150-450) k/uL MPV Neutrophils % % Lymphocytes % % Monocytes % % Eosinophils % % Basophils % % Neutrophils # (1.3-7.7) k/uL Lymphocytes # (1.0-4.8) k/uL Monocytes # (0-1.0) k/uL Eosinophils # (0-0.7) k/uL Basophils # (0-0.2) k/uL PT (9.0-12.0) sec INR (<1.2) APTT (22.0-30.0) sec Sodium (137-145) mmol/L Potassium (3.5-5.1) mmol/L Chloride (98-107) mmol/L Carbon Dioxide (22-30) mmol/L Anion Gap mmol/L BUN (9-20) mg/dL Creatinine (0.66-1.25) mg/dL Est GFR (CKD-EPI)AfAm (>60 ml/min/1.73 sqM) Est GFR (CKD-EPI)NonAf (>60 ml/min/1.73 sqM) Glucose (74-99) mg/dL Plasma Lactic Acid Skyler 1.6 (0.7-2.0) mmol/L Calcium (8.4-10.2) mg/dL Total Bilirubin (0.2-1.3) mg/dL AST (17-59) U/L ALT (4-49) U/L Alkaline Phosphatase (38-126) U/L Total Protein (6.3-8.2) g/dL Albumin (3.5-5.0) g/dL Lipase (23-300) U/L Disposition Clinical Impression: Small bowel obstruction, Dehydration Disposition: ADMITTED IP TO THIS [facility] Condition: Fair Referrals: Michael Oneil MD [Primary Care Provider] - 1-2 days Time of Disposition: 11:05
[2023-01-26] MEDS ORDERED: ONDANSETRON 4 MG/2 ML VIAL IVP PRN (11:07)
[2023-01-26] MEDS ORDERED: NALOXONE 0.4 MG/ML 1 ML VIAL IV PRN (11:07)
--- NOTE | 2023-01-26 11:38 | XR ---
EXAMINATION TYPE: XR chest 1V portable DATE OF EXAM: 01/26/2023 COMPARISON: 12/07/2020 HISTORY: NG tube placement TECHNIQUE: Single frontal view of the chest is obtained. FINDINGS: A bilateral lower lobe infiltrate and small effusion. Hypertrophic degenerative changes sp ine. Heart is enlarged. NG tube seen with the tip in a gastric body. Stomach distended. IMPRESSION: 1. NG tube seen with the tip at the level of gastric body. Stomach remains distended. 2. Bilateral lower lobe infiltrate and small effusion.
[2023-01-26] MEDS: SODIUM CHLORIDE 0.9% 1,000 ML IV SCH (11:44)
--- NOTE | 2023-01-26 13:51 | P.GSCN ---
History of Present Illness Consult date: 01/26/23 History of present illness: CHIEF COMPLAINT: Abdominal pain HISTORY OF PRESENT ILLNESS: This is a 87-year-old male who presented to the hospital with complaints of diffuse abdominal pain that started yesterday after dinner. reports the patient ate chicken pot high and then started to complain later that evening that he was not feeling well. He was nauseous and had diffuse pain. He did have a bowel movement yesterday evening. He reports no vomiting. He did have some flatus today since being in the ER. He has a history of small bowel obstruction that was managed conservatively in 2020. Past surgical history does include Bebeto complication and hernia repair. 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 Last radiation treatment was 2 weeks ago. Patient had computed tomography scan abdomen and pelvis without contrast that shows suspected high-grade small bowel obstruction likely within the ileum with a transition noted as demonstrated by multiple decompressed distal small bowel loops. Patient has NG tube in place. He reports improvement in abdominal pain and nausea after NG tube placement and nausea medication given. PAST MEDICAL HISTORY: Diabetes Mellitus, Hyperlipidemia, Hypertension, Osteoarthritis (OA), Thyroid Disorder, Vascular Disorder, PVD, esophageal stricture with dilation, colitis, blockage to lt carotid , history of A. fib on Coumadin PAST SURGICAL HISTORY: Lap bebeto fundoplasty, TUMOR RIGHT LUNG REMOVED, RIGHT CAROTID ENDARTERECTOMY, gastric surgery for rupture MEDICATIONS: See below ALLERGIES: See below SOCIAL HISTORY: No illicit drug use. REVIEW OF SYSTEMS: CONSTITUTIONAL: Denies fever or chills. HEENT: Denies blurred vision, vision changes, or eye pain. Denies hemoptysis CARDIOVASCULAR: Denies chest pain or pressure. RESPIRATORY: No shortness of breath. GASTROINTESTINAL: See HPI for pertinent findings HEMATOLOGIC: Denies bleeding disorders. GENITOURINARY: Denies any blood in urine or increased urinary frequency. SKIN: Denies pruitis. Denies rash. PHYSICAL EXAM: VITAL SIGNS: Reviewed GENERAL: Well-developed in no acute distress. HEENT: upper and lower lip scabbing on right side ABDOMEN: Distended. nontender currently. NG tube in place NEUROLOGIC: Alert and oriented. Cranial nerves II through XII grossly intact. LABORATORY DATA: WBC 12.7 HGB 12.9 plt 239 INR 2.4 Na 137 K 4.6 cr 2.90 Lactic acid 1.7 LFTs normal lipase 37 IMAGING: Computed tomography scan abdomen and pelvis shows suspected high-grade small bowel obstruction likely within the ileum with a transition noted as demonstrated by multiple decompressed distal small bowel loops. Partially calcified 1.1 cm right lower lobe pulmonary nodule stable ASSESSMENT: 1. Small bowel obstruction, suspected high-grade small bowel obstruction noted on CT PLAN: -Continue NG tube for decompression -Keep patient nothing by mouth -Continue to observe -Continue IV fluids -Continue supportive care Physician Astronomy Teacher note has been reviewed by physician. Signing provider agrees with the documented findings, assessment, and plan of care. 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 , patient on warfarin for cardiovascular disease History of Any Multi-Drug Resistant Organisms: None Reported Past Surgical History: Hernia Repair, Joint Replacement Additional Past Surgical History / Comment(s): Lap bebeto fundoplasty, TUMOR RIGHT LUNG REMOVED, RIGHT CAROTID ENDARTERECTOMY, gastric surgery for rupture (pt does not know what ruptured), EGD, colonoscopy, CATARACTS., trk 04/07/17, left knee replacement Past Anesthesia/Blood Transfusion Reactions: No Reported Reaction, Motion Sickness Past Psychological History: No Psychological Hx Reported Smoking Status: Former smoker Past Alcohol Use History: Rare Past Drug Use History: None Reported - Past Family History Brother(s) Family Medical History: Diabetes Mellitus Sister(s) Family Medical History: Cancer Mother Family Medical History: Congestive Heart Failure (CHF), Coronary Artery Disease (CAD) Additional Family Medical History / Comment(s): Mother of CHF at age 83 yrs. Father Family Medical History: Myocardial Infarction (ID) Additional Family Medical History / Comment(s): Father of ID at age 60 yrs Medications and Allergies Home Medications Medication Instructions Recorded Confirmed Type Atorvastatin [Lipitor] 20 mg PO HS 05/13/20 12/07/20 History Furosemide [Lasix] 40 mg PO Q48H 12/07/20 12/07/20 History Levothyroxine Sodium [Synthroid] 50 mcg PO DAILY 12/07/20 12/07/20 History Warfarin [Coumadin] 2.5 mg PO TUSA@0900 12/07/20 12/07/20 History Warfarin [Coumadin] 3.75 mg PO SUMOWETHFR@0900 12/07/20 12/07/20 History glipiZIDE [Glucotrol] 10 mg PO BID 12/07/20 12/07/20 History Midodrine [ProAmatine] 5 mg PO AC-TID #30 tab 12/11/20 Rx Allergies Allergy/AdvReac Type Severity Reaction Status Date / Time Iodinated Contrast Media Allergy Mild Rash/Hives Verified 01/26/23 09:22 [Iodinated Contrast Media - IV Dye] Penicillins Allergy Unknown Verified 01/26/23 09:25 Surgical - Exam Vital Signs Temp Pulse Resp BP Pulse Ox 97.4 F L 79 16 143/66 95 01/26/23 09:13 01/26/23 09:13 01/26/23 09:13 01/26/23 09:13 01/26/23 09:13 Results - Labs 01/26/23 09:40 01/26/23 09:40 Abnormal Lab Results - Last 24 Hours (Table) 01/26/23 01/26/23 01/26/23 Range/Units 09:40 09:40 09:40 WBC 12.7 H (3.8-10.6) k/uL Hgb 12.9 L (13.0-17.5) gm/dL Neutrophils # 11.7 H (1.3-7.7) k/uL Lymphocytes # 0.5 L (1.0-4.8) k/uL PT 23.2 H (9.0-12.0) sec INR 2.4 H (<1.2) Carbon Dioxide 18 L (22-30) mmol/L BUN 37 H (9-20) mg/dL Creatinine 2.90 H (0.66-1.25) mg/dL Glucose 267 H (74-99) mg/dL Diabetes panel 01/26/23 Range/Units 09:40 Sodium 137 (137-145) mmol/L Potassium 4.6 (3.5-5.1) mmol/L Chloride 107 (98-107) mmol/L Carbon Dioxide 18 L (22-30) mmol/L BUN 37 H (9-20) mg/dL Creatinine 2.90 H (0.66-1.25) mg/dL Glucose 267 H (74-99) mg/dL Calcium 8.9 (8.4-10.2) mg/dL AST 22 (17-59) U/L ALT 21 (4-49) U/L Alkaline Phosphatase 107 (38-126) U/L Total Protein 6.8 (6.3-8.2) g/dL Albumin 3.6 (3.5-5.0) g/dL Calcium panel 01/26/23 Range/Units 09:40 Calcium 8.9 (8.4-10.2) mg/dL Albumin 3.6 (3.5-5.0) g/dL Pituitary panel 01/26/23 Range/Units 09:40 Sodium 137 (137-145) mmol/L Potassium 4.6 (3.5-5.1) mmol/L Chloride 107 (98-107) mmol/L Carbon Dioxide 18 L (22-30) mmol/L BUN 37 H (9-20) mg/dL Creatinine 2.90 H (0.66-1.25) mg/dL Glucose 267 H (74-99) mg/dL Calcium 8.9 (8.4-10.2) mg/dL Adrenal panel 01/26/23 Range/Units 09:40 Sodium 137 (137-145) mmol/L Potassium 4.6 (3.5-5.1) mmol/L Chloride 107 (98-107) mmol/L Carbon Dioxide 18 L (22-30) mmol/L BUN 37 H (9-20) mg/dL Creatinine 2.90 H (0.66-1.25) mg/dL Glucose 267 H (74-99) mg/dL Calcium 8.9 (8.4-10.2) mg/dL Total Bilirubin 0.9 (0.2-1.3) mg/dL AST 22 (17-59) U/L ALT 21 (4-49) U/L Alkaline Phosphatase 107 (38-126) U/L Total Protein 6.8 (6.3-8.2) g/dL Albumin 3.6 (3.5-5.0) g/dL
[2023-01-26 17:08] LABS: Amorphous Sediment,Urine Rare /hpf; Appearance,Urine Cloudy (Clear); Bilirubin,Urine Negative (Negative); Blood,Urine Small (Negative); Color,Urine Light Yellow; Glucose,Urine (UA) 4+ (Negative); Hyaline Casts,Urine 4 /lpf (0-2); Ketones,Urine Trace (Negative); Leukocyte Esterase,Urine Small (Negative); Mucus,Urine Rare /hpf; Nitrite,Urine Negative (Negative); PH, Urine 5.5 (5.0-8.0); Protein,Urine 2+ (Negative); RBC,Urine 1 /hpf (0-5); Specific Gravity,Urine 1.015 (1.001-1.035); Squamous Epithelial Cell,Urine <1 /hpf (0-4); Urobilinogen,Urine <2.0 mg/dL (<2.0); WBC,Urine 8 /hpf (0-5)
[2023-01-26] MEDS: HYDROmorphone 0.5 MG/0.5 ML SYRINGE IVP PRN (17:54)
[2023-01-26 18:20] LABS: Glucose,Whole Blood 219 mg/dL (70-110)
[2023-01-26 20:00] LABS: Glucose,Whole Blood 244 mg/dL (70-110)
[2023-01-27] MEDS: SODIUM CHLORIDE 0.9% 1,000 ML IV SCH (01:34)
[2023-01-27] MEDS: HYDROmorphone 0.5 MG/0.5 ML SYRINGE IVP PRN ×3 (04:33→17:00)
[2023-01-27 07:54] LABS: Glucose,Whole Blood 170 mg/dL (70-110)
[2023-01-27] MEDS: BARIUM SULFATE 2% - 450 ML ORAL.SUSP BOTTLE PO PRN ×2 (08:23→11:38)
[2023-01-27 11:18] LABS: Basophils # (A) 0.01 X 10*3/uL (0.00-0.10); Basophils % (A) 0.1 %; Eosinophils # (A) 0 X 10*3/uL (0.04-0.35); Eosinophils % (A) 0 %; HCT 36.8 % (39.6-50.0); HGB 11.7 d/dL (13.0-17.0); Lymphocytes # (A) 0.67 X 10*3/uL (0.90-5.00); Lymphocytes % (A) 6.8 %; MCH 29.4 pg (27.0-32.0); MCHC 31.8 d/dL (32.0-37.0); MCV 92.5 FL (80.0-97.0); Mean Platelet Volume 10.1 FL (9.5-12.2); Monocytes # (A) 0.94 X 10*3/uL (0.20-1.00); Monocytes % (A) 9.5 %; NRBC Per 100 WBC 0 X 10*3/uL (0.00-0.01); Neutrophils # (A) 8.21 X 10*3/uL (1.80-7.70); Neutrophils % (A) 83.2 %; Platelet Count 241 X 10*3/uL (140-440); RBC 3.98 X 10*6/uL (4.40-5.60); RDW 14.4 % (11.5-14.5); WBC 9.87 X 10*3/uL (4.50-10.00)
[2023-01-27 11:44] LABS: BUN/Creat Ratio 14.21 Ratio (12.00-20.00); Blood Urea Nitrogen 41.2 mg/dL (9.0-27.0); Calcium 8.1 mg/dL (8.7-10.3); Carbon Dioxide 20.8 mmol/L (21.6-31.8); Chloride 110 mmol/L (96-109); Glucose 177 mg/dL (70-110); Sodium 141 mmol/L (135-145)
[2023-01-27 12:03] LABS: INR 2.48 sec (0.93-1.11); Prothrombin Time 27.1 sec (9.9-11.9)
[2023-01-27 12:40] LABS: Glucose,Whole Blood 182 mg/dL (70-110)
--- NOTE | 2023-01-27 13:12 | CT ---
EXAMINATION TYPE: CT abdomen pelvis wo con DATE OF EXAM: 01/27/2023 COMPARISON: 01/26/2023 HISTORY: Small bowel obstruction CT DLP: 114.70 mGycm Automated exposure control for dose reduction was used. TECHNIQUE: Helical acquisition of images was performed from the lung bases through the pelvis. FINDINGS: LUNG BASES: Basilar emphysematous changes with subsegmental consolidation bilaterally and small pleur al effusion. The heart is enlarged atherosclerotic change aorta. [id number] sized hiatal herni a. There is a right lower lobe pulmonary nodule with calcification stable from prior exam measuring 1 .1 cm LIVER/GB: Postcholecystectomy PANCREAS: Diffuse pancreatic atrophy. SPLEEN: No significant abnormality is seen. ADRENALS: Bilateral adrenal nodules stable likely on the basis of incidental adenoma. KIDNEYS: Bilateral renal cortical thickening with 1 cm hypodensity lateral right renal cortex likely related to simple cyst. RETROPERITONEAL ADENOPATHY: None visualized REPRODUCTIVE ORGANS: No significant abnormality is seen URINARY BLADDER: No significant abnormality is seen. PELVIC ADENOPATHY: None visualized. OSSEOUS STRUCTURES: Bilateral hip arthropathy and multilevel hypertrophic and degenerative disc dise ase.. Hypertrophic arthropathy of the SI joints. BOWEL: Numerous dilated small bowel loops with improvement of gastric distention due to NG tube plac ement.. There is a marked decompression of the distal small bowel. The small bowel loops persist and suggestive of high- grade obstruction. OTHER: Previous surgery involving wall. Hyperdensity seen in the mesentery appears posterior given it s stable from 07/05/2021. Atherosclerotic change vasculature. IMPRESSION: 1. Findings suggestive of small bowel obstruction similar to the prior exam. 2. Small hiatal hernia with thickening of the wall the distal esophagus correlate for reflux esophagi tis or mucosal lesion.
--- NOTE | 2023-01-27 14:46 | P.PN ---
Subjective Progress Note Date: 01/27/23 CHIEF COMPLAINT: Small bowel obstruction HISTORY OF PRESENT ILLNESS: Patient reported increase in abdominal pain after NG tube clamped this morning. He was only able to tolerate partial amount of the contrast. It caused increased nausea and pain. He did have a small amount of flatus this morning. However, abdomen is more distended. No bowel movement. He is nauseated. NG tube with 200 mL brownish output. Afebrile. WBC down from 12 to 9.87 hgb 11.7 platelets 241 sodium 141 potassium is 5 creatinine 2.9 Computed tomography scan abdomen and pelvis findings just of small bowel obstruction similar to prior exam. Small hiatal hernia with thickening of the wall of the distal esophagus PHYSICAL EXAM: VITAL SIGNS: Reviewed. GENERAL: Well-developed in no acute distress. ABDOMEN: Distended. Diffuse tenderness. NG tube in place NEUROLOGIC: Alert and oriented. Cranial nerves II through XII grossly intact. ASSESSMENT: 1. Small bowel obstruction PLAN: -Patient tentatively scheduled for Exploratory laparotomy tomorrow, 01/28/[address] sweeney -Keep patient nothing by mouth -Continue IV fluids -Continue to hold Coumadin Physician Cafe Cook note has been reviewed by physician. Signing provider agrees with the documented findings, assessment, and plan of care. Objective - Vital Signs Vital signs: Vital Signs Temp 98.0 F 01/27/23 07:16 Pulse 84 01/27/23 07:16 Resp 20 01/27/23 07:16 BP 156/68 01/27/23 07:16 Pulse Ox 92 L 01/27/23 07:16 FiO2 Intake & Output 01/26/23 01/27/23 01/27/23 18:59 06:59 18:59 Output Total 350 Balance -350 Weight 103 kg Output: Gastric Drainage 150 Urine 200 Other: Voiding Method Toilet - Labs CBC & Chem 7: 01/27/23 05:39 01/27/23 05:39 Labs: Abnormal Lab Results - Last 24 Hours (Table) 01/26/23 01/26/23 01/26/23 Range/Units 16:44 18:17 19:59 RBC (4.40-5.60) X 10*6/uL Hgb (13.0-17.0) d/dL Hct (39.6-50.0) % MCHC (32.0-37.0) d/dL Neutrophils # (1.80-7.70) X 10*3/uL Lymphocytes # (0.90-5.00) X 10*3/uL Eosinophils # (0.04-0.35) X 10*3/uL PT (9.9-11.9) sec INR (0.93-1.11) sec Chloride (96-109) mmol/L Carbon Dioxide (21.6-31.8) mmol/L BUN (9.0-27.0) mg/dL Creatinine (0.6-1.5) mg/dL Est GFR (CKD-EPI) (>=60) Glucose (70-110) mg/dL POC Glucose (mg/dL) 219 H 244 H (70-110) mg/dL Calcium (8.7-10.3) mg/dL Urine Protein 2+ H (Negative) Urine Glucose (UA) 4+ H (Negative) Urine Ketones Trace H (Negative) Urine Blood Small H (Negative) Ur Leukocyte Esterase Small H (Negative) Urine WBC 8 H (0-5) /hpf Amorphous Sediment Rare H (None) /hpf Hyaline Casts 4 H (0-2) /lpf Urine Mucus Rare H (None) /hpf 01/27/23 01/27/23 01/27/23 Range/Units 05:39 05:39 05:39 RBC 3.98 L (4.40-5.60) X 10*6/uL Hgb 11.7 L (13.0-17.0) d/dL Hct 36.8 L (39.6-50.0) % MCHC 31.8 L (32.0-37.0) d/dL Neutrophils # 8.21 H (1.80-7.70) X 10*3/uL Lymphocytes # 0.67 L (0.90-5.00) X 10*3/uL Eosinophils # 0 L (0.04-0.35) X 10*3/uL PT 27.1 H (9.9-11.9) sec INR 2.48 H (0.93-1.11) sec Chloride 110 H (96-109) mmol/L Carbon Dioxide 20.8 L (21.6-31.8) mmol/L BUN 41.2 H (9.0-27.0) mg/dL Creatinine 2.9 H (0.6-1.5) mg/dL Est GFR (CKD-EPI) 20 L (>=60) Glucose 177 H (70-110) mg/dL POC Glucose (mg/dL) (70-110) mg/dL Calcium 8.1 L (8.7-10.3) mg/dL Urine Protein (Negative) Urine Glucose (UA) (Negative) Urine Ketones (Negative) Urine Blood (Negative) Ur Leukocyte Esterase (Negative) Urine WBC (0-5) /hpf Amorphous Sediment (None) /hpf Hyaline Casts (0-2) /lpf Urine Mucus (None) /hpf 01/27/23 Range/Units 07:19 RBC (4.40-5.60) X 10*6/uL Hgb (13.0-17.0) d/dL Hct (39.6-50.0) % MCHC (32.0-37.0) d/dL Neutrophils # (1.80-7.70) X 10*3/uL Lymphocytes # (0.90-5.00) X 10*3/uL Eosinophils # (0.04-0.35) X 10*3/uL PT (9.9-11.9) sec INR (0.93-1.11) sec Chloride (96-109) mmol/L Carbon Dioxide (21.6-31.8) mmol/L BUN (9.0-27.0) mg/dL Creatinine (0.6-1.5) mg/dL Est GFR (CKD-EPI) (>=60) Glucose (70-110) mg/dL POC Glucose (mg/dL) 170 H (70-110) mg/dL Calcium (8.7-10.3) mg/dL Urine Protein (Negative) Urine Glucose (UA) (Negative) Urine Ketones (Negative) Urine Blood (Negative) Ur Leukocyte Esterase (Negative) Urine WBC (0-5) /hpf Amorphous Sediment (None) /hpf Hyaline Casts (0-2) /lpf Urine Mucus (None) /hpf
[2023-01-27 17:03] LABS: Glucose,Whole Blood 201 mg/dL (70-110)
--- NOTE | 2023-01-27 18:04 | HP ---
HISTORY AND PHYSICAL CHIEF COMPLAINT: Abdominal pain and distention. HISTORY OF PRESENT ILLNESS: This is another admission for this 87-year-old gentleman with a history of hypertension and diabetes. He has had intermittent problems with bowel obstruction in the past. He came in to the office after 2- to 3-day history of crampy abdominal pain, getting worse. He did not vomit. He had no fever or chills. In the emergency room, it was felt that he had a small bowel obstruction. REVIEW OF SYSTEMS: He denies any headaches, neurologic problems, confusion, chest pain, shortness of breath, cough, hemoptysis, hematemesis, melena, hematochezia, jaundice, hematuria frequency, urgency, nocturia, incontinence, etc. Past medical history, family history, and personal and social histories reveal that he is allergic to penicillin and IV contrast dye as well as TONO inhibitors. He is on: 1. Levothyroxine 0.1 mg once a day. 2. Metoprolol 25 mg twice a day. 3. Losartan 25 mg once a day. 4. Pepcid 40 mg once a day. 5. Lasix 40 mg every other day. 6. Glipizide 10 mg twice a day. 7. Atorvastatin 40 mg once a day. 8. Ferrous sulfate. 9. Coumadin 2.5 once a day. Remainder of his history is unremarkable. He has had a history in the past of congestive heart failure and coronary artery disease. He used to smoke, but has stopped. PHYSICAL EXAMINATION: VITAL SIGNS: Blood pressure is 136/84 with a pulse of 83, respirations 28, and he is afebrile. GENERAL: He appeared to be well developed, well nourished, and slightly uncomfortable. SKIN: Color was normal. Skin is warm and dry. LYMPHATICS: Lymph nodes are not enlarged. HEAD, EARS, EYES, NOSE, MOUTH, AND THROAT: Normal except for the presence of an NG tube. CHEST: Clear. CARDIAC: Demonstrated sinus rhythm. ABDOMEN: Slightly distended and soft. There is some generalized mild tenderness without rebound. Bowel sounds were heard. EXTREMITIES: Normal. NEUROLOGIC: He is intact. DIAGNOSES: He is admitted to the hospital with diagnoses: 1. Small bowel obstruction. 2. History of hypertension. 3. Type 2 diabetes. 4. Previous bowel obstruction. PLAN: 1. Bedrest. 2. IV fluids. 3. Surgical consult. 4. NG tube drainage. KORY / PRATEEK: [id number] /
--- NOTE | 2023-01-27 18:17 | PN ---
PROGRESS NOTE DATE OF SERVICE: 01/27/2023 CHIEF COMPLAINT: Small bowel obstruction. HISTORY OF PRESENT ILLNESS: This gentleman is doing fairly well. He is not having a great deal of pain. PHYSICAL EXAMINATION: CHEST: Clear. CARDIAC: Normal. ABDOMEN: Bowel sounds are heard. IMPRESSION: 1. Bowel obstruction. 2. Diabetes. 3. Dehydration. PLAN: Continue with IV fluids, NG tube drainage, and n.p.o. MMODL / IJN: [id number] /
[2023-01-27 20:20] LABS: Glucose,Whole Blood 179 mg/dL (70-110)
[2023-01-28] MEDS: SODIUM CHLORIDE 0.9% 1,000 ML IV SCH ×3 (00:06→16:57)
[2023-01-28 05:21] LABS: HCT 37.5 % (39.0-53.0); HGB 12.5 gm/dL (13.0-17.5); Hypochromasia Slight; MCH 30.7 pg (25.0-35.0); MCHC 33.3 g/dL (31.0-37.0); MCV 92.4 fL (80.0-100.0); Mean Platelet Volume 7.6; Platelet Count 235 k/uL (150-450); RBC 4.06 m/uL (4.30-5.90); RDW 14.5 % (11.5-15.5); WBC 5.8 k/uL (3.8-10.6)
[2023-01-28 05:34] LABS: African American GFR (CKD) 23 (>60 ml/min/1.73 sqM); Anion Gap 7 mmol/L; Blood Urea Nitrogen 48 mg/dL (9-20); Calcium 7.6 mg/dL (8.4-10.2); Carbon Dioxide 22 mmol/L (22-30); Chloride 114 mmol/L (98-107); Glucose 171 mg/dL (74-99); Non-African American GFR(CKD) 20 (>60 ml/min/1.73 sqM); Potassium 4.8 mmol/L (3.5-5.1); Sodium 143 mmol/L (137-145)
[2023-01-28 05:52] LABS: INR 3.5 (<1.2)
[2023-01-28 07:23] LABS: Glucose,Whole Blood 160 mg/dL (70-110)
[2023-01-28] MEDS ORDERED: PHYTONADIONE 10 MG in SODIUM CHLORIDE 0.9% 50 ML IVPB STA (07:39)
[2023-01-28 09:22] LABS: INR 3.3 (<1.2); Prothrombin Time 32.4 sec (9.0-12.0)
[2023-01-28 12:34] LABS: Glucose,Whole Blood 140 mg/dL (70-110)
--- NOTE | 2023-01-28 14:08 | P.PN ---
Subjective Progress Note Date: 01/28/23 CHIEF COMPLAINT: Small bowel obstruction HISTORY OF PRESENT ILLNESS: Patient reports that his abdominal pain is slightly less. Denies any nausea or vomiting. He is having flatus. He reports the bloating is slightly better. Denies any nausea. NG tube output is dark with 300 mL through the night. Afebrile. WBC 5.8 Hgb 12.5 platelets 235 INR 3.5 PHYSICAL EXAM: VITAL SIGNS: Reviewed. GENERAL: Well-developed in no acute distress. ABDOMEN: softer. Distended. Diffuse tenderness. NG tube in place NEUROLOGIC: Alert and oriented. Cranial nerves II through XII grossly intact. ASSESSMENT: 1. Small bowel obstruction PLAN: -Patient tentatively scheduled for Exploratory laparotomy tomorrow, 01/29/[address] Baptiste -Surgery canceled for today due to elevated INR level. Patient did receive 10 mg IV of vitamin K for an INR of 3.5. Pharmacy requested another INR to be drawn prior to an additional 10mg of vitamin K being given. Awaiting repeat INR -Continue NG tube for decompression -Keep patient nothing by mouth -Continue IV fluids -Continue to hold Coumadin Physician Student Dean note has been reviewed by physician. Signing provider agrees with the documented findings, assessment, and plan of care. Objective - Vital Signs Vital signs: Vital Signs Temp 98.5 F 01/28/23 08:29 Pulse 89 01/28/23 08:29 Resp 16 01/28/23 08:29 BP 161/74 01/28/23 08:29 Pulse Ox 94 L 01/28/23 08:29 FiO2 Intake & Output 01/27/23 01/28/23 01/28/23 18:59 06:59 18:59 Intake Total 0 Output Total 150 1200 Balance -150 -1200 Intake: Oral 0 Output: Gastric Drainage 50 300 Urine 100 900 Other: Voiding Method Toilet Toilet Toilet - Labs CBC & Chem 7: 01/28/23 04:48 01/28/23 04:48 Labs: Abnormal Lab Results - Last 24 Hours (Table) 01/27/23 01/27/23 01/27/23 Range/Units 05:39 05:39 11:56 RBC (4.30-5.90) m/uL Hgb (13.0-17.5) gm/dL Hct (39.0-53.0) % PT 27.1 H (9.9-11.9) sec INR 2.48 H (0.93-1.11) sec Chloride 110 H (96-109) mmol/L Carbon Dioxide 20.8 L (21.6-31.8) mmol/L BUN 41.2 H (9.0-27.0) mg/dL Creatinine 2.9 H (0.6-1.5) mg/dL Est GFR (CKD-EPI) 20 L (>=60) Glucose 177 H (70-110) mg/dL POC Glucose (mg/dL) 182 H (70-110) mg/dL Calcium 8.1 L (8.7-10.3) mg/dL 01/27/23 01/27/23 01/28/23 Range/Units 16:56 20:18 04:48 RBC 4.06 L (4.30-5.90) m/uL Hgb 12.5 L (13.0-17.5) gm/dL Hct 37.5 L (39.0-53.0) % PT (9.9-11.9) sec INR (0.93-1.11) sec Chloride (96-109) mmol/L Carbon Dioxide (21.6-31.8) mmol/L BUN (9.0-27.0) mg/dL Creatinine (0.6-1.5) mg/dL Est GFR (CKD-EPI) (>=60) Glucose (70-110) mg/dL POC Glucose (mg/dL) 201 H 179 H (70-110) mg/dL Calcium (8.7-10.3) mg/dL 01/28/23 01/28/23 01/28/23 Range/Units 04:48 04:48 07:22 RBC (4.30-5.90) m/uL Hgb (13.0-17.5) gm/dL Hct (39.0-53.0) % PT 34.0 H (9.9-11.9) sec INR 3.5 H (0.93-1.11) sec Chloride 114 H (96-109) mmol/L Carbon Dioxide (21.6-31.8) mmol/L BUN 48 H (9.0-27.0) mg/dL Creatinine 2.76 H (0.6-1.5) mg/dL Est GFR (CKD-EPI) (>=60) Glucose 171 H (70-110) mg/dL POC Glucose (mg/dL) 160 H (70-110) mg/dL Calcium 7.6 L (8.7-10.3) mg/dL 01/28/23 Range/Units 08:35 RBC (4.30-5.90) m/uL Hgb (13.0-17.5) gm/dL Hct (39.0-53.0) % PT 32.4 H (9.9-11.9) sec INR 3.3 H (0.93-1.11) sec Chloride (96-109) mmol/L Carbon Dioxide (21.6-31.8) mmol/L BUN (9.0-27.0) mg/dL Creatinine (0.6-1.5) mg/dL Est GFR (CKD-EPI) (>=60) Glucose (70-110) mg/dL POC Glucose (mg/dL) (70-110) mg/dL Calcium (8.7-10.3) mg/dL
--- NOTE | 2023-01-28 14:08 | CDI ---
Documentation Clarification Form Date: 01/28/2023 01:41:00 PM From: Jessica Fox RN, CCDS Admit Date: 01/26/2023 10:33:00 AM Patient Name: Saud Farley Visit Number: [id number] Discharge Date: ATTENTION: The Clinical Documentation Specialists (CDI) and [facility] Coding Staff appreciate your assistance in clarifying documentation. Please respond to the clarification below the line at the bottom and electronically sign. The CDI & [facility] Coding staff will review the response and follow-up if needed. Please note: Queries are made part of the Legal Health Record. If you have any questions, please contact the author of this message via ITS. Dr. Michael Oneil Your patient has an abnormal lab value: BUN 37, Creatinine 2.90 GFR 19. Please clarify if there is an additional diagnosis and/or clinical significance related to this value. History/Risk Factors: Diabetes Mellitus, Hyperlipidemia, Hypertension, Osteoarthritis (OA), Thyroid Disorder, Vascular Disorder Clinical indicators: 87-year-old male presents emergency department via EMS chief complaint abdominal pain. 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 He was ruled in for evidence of small bowel obstruction high-grade per CT scan. 01/26 BUN 37 CR 2.90 GFR 19 01/27 BUN 41.2 CR 2.9 01/28 BUN 48 CR 2.76 GFR 20 Treatment: .9NS 500 ML bolus 01/26 .9 NS 1,000 ML @ 75MLS/HR 01/26-01/28 Monitor Renal function Is there an additional diagnosis and/or clinical significance related to the above lab result/information? [ ] Acute Kidney injury [ ] Chronic Kidney disease stage 4 [ ] Acute on Chronic Kidney disease stage 4 [ ] Other, please specify [ ] Unable to determine (Template Last Revised: May 2020) MISCELLANOUS REPORT Chronic kidney disease, stage 4. MMODL / IJN: [id number] / Dictated By: Michael Oneil MD Signed By: BROOKE/ [id number] TD/TT:03/06/232238 Edge Burnisher: MENDEZ SHAH
[2023-01-28] MEDS ORDERED: PHYTONADIONE 10 MG in SODIUM CHLORIDE 0.9% 50 ML IVPB ONE (16:00)
[2023-01-28 17:05] LABS: Glucose,Whole Blood 125 mg/dL (70-110)
[2023-01-28] MEDS ORDERED: DEXAMETHASONE SOD PHOSPHATE 4 MG/ML 1 ML VIAL IV ONE (20:12)
[2023-01-28] MEDS ORDERED: ONDANSETRON 4 MG/2 ML VIAL IVP ONE (20:12)
[2023-01-28] MEDS ORDERED: LIDOCAINE 1% (10MG/ML) FOR IV START INTRADERMA PRN (20:12)
[2023-01-28] MEDS ORDERED: HYDROmorphone 0.5 MG/0.5 ML SYRINGE IVP PRN (20:12)
[2023-01-28 20:17] LABS: Glucose,Whole Blood 128 mg/dL (70-110)
[2023-01-28 20:49] LABS: INR 1.6 (<1.2); Prothrombin Time 15.5 sec (9.0-12.0)
--- NOTE | 2023-01-28 23:49 | PN ---
PROGRESS NOTE CHIEF COMPLAINT: Small bowel obstruction. HISTORY OF PRESENT ILLNESS: This gentleman is doing well. He started to pass gas. Surgery is postponed. PHYSICAL EXAMINATION: CHEST: Clear. CARDIAC: Unremarkable. Heart rate is irregular. ABDOMEN: Soft and nontender. Bowel sounds are heard. IMPRESSION: 1. Small bowel obstruction - resolving. 2. Diabetes. 3. Atrial fibrillation. PLAN: Increase activity and NG tube can be removed and diet advanced. MMODL / IJN: [id number] /
[2023-01-29] MEDS: SODIUM CHLORIDE 0.9% 1,000 ML IV SCH (03:05)
[2023-01-29 06:29] LABS: African American GFR (CKD) 25 (>60 ml/min/1.73 sqM); Anion Gap 10 mmol/L; Blood Urea Nitrogen 46 mg/dL (9-20); Calcium 7.8 mg/dL (8.4-10.2); Carbon Dioxide 21 mmol/L (22-30); Chloride 117 mmol/L (98-107); Glucose 128 mg/dL (74-99); Non-African American GFR(CKD) 22 (>60 ml/min/1.73 sqM); Potassium 4.6 mmol/L (3.5-5.1); Sodium 148 mmol/L (137-145)
[2023-01-29 06:48] LABS: Basophils % (A) 0 %; Eosinophils % (A) 1 %; HCT 38.3 % (39.0-53.0); HGB 12.1 gm/dL (13.0-17.5); Hypochromasia Slight; Lymphocytes # (A) 0.6 k/uL (1.0-4.8); Lymphocytes % (A) 11 %; MCH 29.6 pg (25.0-35.0); MCHC 31.6 g/dL (31.0-37.0); MCV 93.6 fL (80.0-100.0); Monocytes # (A) 0.6 k/uL (0-1.0); Monocytes % (A) 11 %; Neutrophils # (A) 4.2 k/uL (1.3-7.7); Neutrophils % (A) 76 %; Platelet Count 211 k/uL (150-450); RBC 4.09 m/uL (4.30-5.90); RDW 14.5 % (11.5-15.5); WBC 5.5 k/uL (3.8-10.6)
[2023-01-29 06:50] LABS: INR 1.3 (<1.2); Prothrombin Time 13.2 sec (9.0-12.0)
[2023-01-29 07:05] LABS: Glucose,Whole Blood 119 mg/dL (70-110)
[2023-01-29] MEDS: LACTATED RINGERS 1,000 ML IV SCH ×6 (07:34→21:15)
--- NOTE | 2023-01-29 11:19 | P.PN ---
Subjective Progress Note Date: 01/29/23 CHIEF COMPLAINT: Small bowel obstruction HISTORY OF PRESENT ILLNESS: Patient reports that he is feeling better today. He is passing a lot of flatus. Abdominal pain is resolved. He denies any nausea. He reports that he feels very thirsty and does complain of a headache. He wants NG tube out. NG tube output of about 400 through the night. Afebrile. WBC 5.5 Hgb 12.1 plt 211 INR 1.3. Patient did receive 2 doses of vitamin K for INR reversal PHYSICAL EXAM: VITAL SIGNS: Reviewed. GENERAL: Well-developed in no acute distress. ABDOMEN: Soft nondistended nontender NEUROLOGIC: Alert and oriented. Cranial nerves II through XII grossly intact. ASSESSMENT: 1. Partial Small bowel obstruction secondary to adhesions is improving PLAN: -Will advance diet to full liquids -Discontinue NG tube -Continue to monitor patient closely -Continue to hold Coumadin for now Physician Manufacturing Quality Technician note has been reviewed by physician. Signing provider agrees with the documented findings, assessment, and plan of care. Objective - Vital Signs Vital signs: Vital Signs Temp 97.7 F 01/29/23 07:00 Pulse 94 01/29/23 07:00 Resp 20 01/29/23 07:00 BP 155/73 01/29/23 07:00 Pulse Ox 95 01/29/23 07:00 FiO2 Intake & Output 01/28/23 01/29/23 01/29/23 18:59 06:59 18:59 Output Total 200 770 Balance -200 -770 Output: Gastric Drainage 200 320 Urine 450 Other: Voiding Method Toilet Urinal Urinal - Labs CBC & Chem 7: 01/29/23 05:20 01/29/23 05:20 Labs: Abnormal Lab Results - Last 24 Hours (Table) 01/28/23 01/28/23 01/28/23 Range/Units 12:33 14:28 17:03 RBC (4.30-5.90) m/uL Hgb (13.0-17.5) gm/dL Hct (39.0-53.0) % Lymphocytes # (1.0-4.8) k/uL PT 20.0 H (9.0-12.0) sec INR 2.0 H (<1.2) Sodium (137-145) mmol/L Chloride (98-107) mmol/L Carbon Dioxide (22-30) mmol/L BUN (9-20) mg/dL Creatinine (0.66-1.25) mg/dL Glucose (74-99) mg/dL POC Glucose (mg/dL) 140 H 125 H (70-110) mg/dL Calcium (8.4-10.2) mg/dL 01/28/23 01/28/23 01/29/23 Range/Units 20:16 20:21 05:20 RBC 4.09 L (4.30-5.90) m/uL Hgb 12.1 L (13.0-17.5) gm/dL Hct 38.3 L (39.0-53.0) % Lymphocytes # 0.6 L (1.0-4.8) k/uL PT 15.5 H (9.0-12.0) sec INR 1.6 H (<1.2) Sodium (137-145) mmol/L Chloride (98-107) mmol/L Carbon Dioxide (22-30) mmol/L BUN (9-20) mg/dL Creatinine (0.66-1.25) mg/dL Glucose (74-99) mg/dL POC Glucose (mg/dL) 128 H (70-110) mg/dL Calcium (8.4-10.2) mg/dL 01/29/23 01/29/23 01/29/23 Range/Units 05:20 05:20 07:03 RBC (4.30-5.90) m/uL Hgb (13.0-17.5) gm/dL Hct (39.0-53.0) % Lymphocytes # (1.0-4.8) k/uL PT 13.2 H (9.0-12.0) sec INR 1.3 H (<1.2) Sodium 148 H (137-145) mmol/L Chloride 117 H (98-107) mmol/L Carbon Dioxide 21 L (22-30) mmol/L BUN 46 H (9-20) mg/dL Creatinine 2.58 H (0.66-1.25) mg/dL Glucose 128 H (74-99) mg/dL POC Glucose (mg/dL) 119 H (70-110) mg/dL Calcium 7.8 L (8.4-10.2) mg/dL
[2023-01-29] MEDS: DEXTROSE 5% IN WATER 1,000 ML IV SCH ×2 (12:25→17:59)
[2023-01-29 13:01] LABS: Glucose,Whole Blood 163 mg/dL (70-110)
[2023-01-29 17:24] LABS: Glucose,Whole Blood 249 mg/dL (70-110)
[2023-01-29] MEDS ORDERED: DEXTROSE 50% SYRINGE 50 ML IVP PRN ×2 (17:52)
[2023-01-29] MEDS: INSULIN ASPART (NovoLOG) 100 UNIT/ML VIAL SQ SCH ×2 (17:59→21:14)
[2023-01-29] MEDS ORDERED: WARFARIN 10 MG TAB PO ONE (18:00)
[2023-01-29 20:48] LABS: Glucose,Whole Blood 217 mg/dL (70-110)
[2023-01-30] MEDS: DEXTROSE 5% IN WATER 1,000 ML IV SCH ×3 (01:26→15:18)
[2023-01-30 07:01] LABS: INR 1.2 (<1.2); Prothrombin Time 11.9 sec (9.0-12.0)
[2023-01-30 07:21] LABS: Glucose,Whole Blood 158 mg/dL (70-110)
[2023-01-30] MEDS: INSULIN ASPART (NovoLOG) 100 UNIT/ML VIAL SQ SCH ×2 (08:47→13:21)
[2023-01-30 11:09] LABS: Basophils # (A) 0.03 X 10*3/uL (0.00-0.10); Basophils % (A) 0.5 %; Eosinophils # (A) 0.24 X 10*3/uL (0.04-0.35); Eosinophils % (A) 4.2 %; HGB 11.1 d/dL (13.0-17.0); Lymphocytes % (A) 19.1 %; MCH 29.1 pg (27.0-32.0); MCHC 31.7 d/dL (32.0-37.0); MCV 91.9 FL (80.0-97.0); Mean Platelet Volume 9.7 FL (9.5-12.2); Monocytes # (A) 0.68 X 10*3/uL (0.20-1.00); Monocytes % (A) 11.8 %; NRBC Per 100 WBC 0 X 10*3/uL (0.00-0.01); Neutrophils # (A) 3.62 X 10*3/uL (1.80-7.70); Platelet Count 196 X 10*3/uL (140-440); RBC 3.81 X 10*6/uL (4.40-5.60); RDW 14.6 % (11.5-14.5); WBC 5.75 X 10*3/uL (4.50-10.00)
--- NOTE | 2023-01-30 11:10 | P.PN ---
Subjective Progress Note Date: 01/30/23 CHIEF COMPLAINT: Small bowel obstruction HISTORY OF PRESENT ILLNESS: Patient reports having bowel movements. He denies any abdominal pain. He denies any nausea or vomiting. He is tolerating diet. He feels ready for discharge. Afebrile. INR 1.2 BMP pending Patient seen and examined with Dr. Baptiste PHYSICAL EXAM: VITAL SIGNS: Reviewed. GENERAL: Well-developed in no acute distress. ABDOMEN: Soft Mildly distended nontender NEUROLOGIC: Alert and oriented. Cranial nerves II through XII grossly intact. ASSESSMENT: 1. Partial Small bowel obstruction secondary to adhesions is improving PLAN: -Patient can be discharged from surgical standpoint with outpatient follow up -Advance diet as tolerated Physician Sawdust Machine Operator note has been reviewed by physician. Signing provider agrees with the documented findings, assessment, and plan of care. Objective - Vital Signs Vital signs: Vital Signs Temp 97.4 F L 01/30/23 07:30 Pulse 95 01/30/23 07:30 Resp 14 01/30/23 07:30 BP 153/72 01/30/23 07:30 Pulse Ox 94 L 01/30/23 07:30 FiO2 Intake & Output 01/29/23 01/30/23 01/30/23 18:59 06:59 18:59 Intake Total 1125 1560 Balance 1125 1560 Intake: Intake, IV Titration 1125 1560 Amount Dextrose 5% in Water 1, 900 1560 000 ml @ 150 mls/hr IV . Q6H40M DONNIE Rx#:[id number] Lactated Ringers 1,000 ml 225 @ 20 mls/hr IV .Q24H DONNIE Rx#:[id number] Oral 0 Other: Voiding Method Urinal Urinal Toilet - Labs CBC & Chem 7: 01/29/23 05:20 01/29/23 05:20 Labs: Abnormal Lab Results - Last 24 Hours (Table) 01/29/23 01/29/23 01/29/23 Range/Units 12:54 17:22 20:44 INR (<1.2) POC Glucose (mg/dL) 163 H 249 H 217 H (70-110) mg/dL 01/30/23 01/30/23 Range/Units 05:46 07:20 INR 1.2 H (<1.2) POC Glucose (mg/dL) 158 H (70-110) mg/dL
[2023-01-30 11:36] LABS: Glucose,Whole Blood 182 mg/dL (70-110)
[2023-01-30 12:14] VITALS: BP 166/77; PULSE 87; RESP 18; TEMP 98.5
[2023-01-30 14:24] LABS: BUN/Creat Ratio 15.84 Ratio (12.00-20.00); Blood Urea Nitrogen 39.6 mg/dL (9.0-27.0); Calcium 7.1 mg/dL (8.7-10.3); Carbon Dioxide 21.7 mmol/L (21.6-31.8); Chloride 110 mmol/L (96-109); Glucose 154 mg/dL (70-110); Potassium 3.6 mmol/L (3.5-5.5); Sodium 142 mmol/L (135-145)
[2023-01-30] MEDS ORDERED: WARFARIN 5 MG TAB PO ONE (18:00)
--- NOTE | 2023-02-01 23:59 | DS ---
DISCHARGE SUMMARY CHIEF COMPLAINT: Abdominal pain. HISTORY OF PRESENT ILLNESS AND PHYSICAL EXAM: Details of this man's history and physical can be found in the initial workup. LABORATORY STUDIES: While he is in the hospital, he had laboratory studies, details of which can be found in the laboratory section of his chart. COURSE IN THE HOSPITAL: After admission, he was placed on bedrest and started on intravenous fluids and nasogastric tube suction. He was seen by Surgery. It was planned that he will require surgery. However, he started to pass gas and eventually, the NG tube was removed. He was then moved into clear liquids and then advanced to soft diet. He is doing well and I felt that he could go home on the 6th and he could go home on his usual activity, diet, and medication and will be followed up in the office. FINAL DIAGNOSES: 1. Partial or incomplete small-bowel obstruction. 2. Diabetes mellitus. OPERATIONS: None. CONSULTATION: Surgery. CONDITION: He is improved. MMRACH / IJSami: [id number] /
--- NOTE | 2023-02-02 01:05 | PN ---
PROGRESS NOTE DATE OF SERVICE: 01/29/2023 CHIEF COMPLAINT: Bowel obstruction. HISTORY OF PRESENT ILLNESS: This gentleman is doing well. He is passing gas. Surgery is apparently still planned, but this should be necessary. PHYSICAL EXAMINATION: CHEST: Clear. CARDIAC: Normal. ABDOMEN: Soft, nontender. He is in atrial fibrillation which is chronic. IMPRESSION: Partial or incomplete small-bowel obstruction - resolving. PLAN: Remove NG tube, advance diet and probably home soon. MMODL / IJN: [id number] /
--- NOTE | 2023-02-04 14:52 | CDI ---
Documentation Clarification Form Date: 02/04/2023 02:35:24 PM From: Vika Cook RN, CCDS Email: [email or web address] Admit Date: 01/26/2023 10:33:00 AM Patient Name: Saud Farley Visit Number: [id number] Discharge Date: 01/30/2023 03:31:00 PM ATTENTION: The Clinical Documentation Specialists (CDI) and [facility] Coding Staff appreciate your assistance in clarifying documentation. Please respond to the clarification below the line at the bottom and electronically sign. The CDI & [facility] Coding staff will review the response and follow-up if needed. Please note: Queries are made part of the Legal Health Record. If you have any questions, please contact the author of this message via ITS. Dr. Michael Oneil There is documentation of elevated PT/INR levels. Based on this information and the findings below, is there an additional diagnosis that is clinically appropriate for this patient? History/Risk Factors: HTN, DM and bowel obstruction in the past. Presented with abdominal pain, nausea. Admitted with bowel obstruction. Plan for surgery but cancelled due to elevated INR. Clinical Indicators: 01/28 Surgery: "tentatively scheduled for exploratory laparotomy. Surgery canceled due to elevated INR level. Continue to hold Coumadin." 01/29 Surgery: "Patient did receive 2 doses of vitamin K for INR reversal." 01/28 PT/INR: 34.0/3.5; 32.4/3.3; 20.0/2.0; 15.5/1.6 01/29 PT/INR: 13.2/1.3 01/30 PT/INR: 11.9/1.2 Treatment: Serial PT/INR levels IV Fluid: 1L 0.9 NS IV bolus x1 on 01/26 then 75mL/hr 01/26-01/29 Reversal agent: Vitamin K 10mg IV x2 on 01/28; Is there an additional diagnosis that is clinically appropriate for this patient? [ ] Coagulopathy due to Coumadin [ ] Abnormal coagulation profile [ ] Other, please specify [ ] Unable to determine MTDD
--- NOTE | 2023-03-09 10:22 | MISC ---
MISCELLANOUS REPORT Chronic kidney disease, stage 4. MMODL / IJN: [id number] /
== END 2023-01-30 15:31 | disposition home or self-care (01) | DRG 389 ==
LOC: EC 09:08 → 5NMEDONC 10:33
PROVIDERS: ADMIT Family Medicine; ATTEND Family Medicine
PROC: 0D9670Z Drainage of Stomach with Drainage Device, Via Natural or Artificial Opening (ICD-10-PCS; principal; 2023-01-26)
DX: K56.51 Intestinal adhesions [bands], with partial obstruction (principal); I13.0 Hypertensive heart and chronic kidney disease with heart failure and stage 1 through stage 4 chronic kidney disease, or unspecified chronic kidney disease; N18.4 Chronic kidney disease, stage 4 (severe); C00.9 Malignant neoplasm of lip, unspecified; C44.91 Basal cell carcinoma of skin, unspecified; E11.51 Type 2 diabetes mellitus with diabetic peripheral angiopathy without gangrene; I50.9 Heart failure, unspecified; E78.5 Hyperlipidemia, unspecified; E86.0 Dehydration; M19.90 Unspecified osteoarthritis, unspecified site; I25.10 Atherosclerotic heart disease of native coronary artery without angina pectoris; K22.2 Esophageal obstruction; E11.22 Type 2 diabetes mellitus with diabetic chronic kidney disease; E07.9 Disorder of thyroid, unspecified; I48.91 Unspecified atrial fibrillation; K44.9 Diaphragmatic hernia without obstruction or gangrene; Z79.01 Long term (current) use of anticoagulants; Z79.84 Long term (current) use of oral hypoglycemic drugs; Z79.890 Hormone replacement therapy; Z79.899 Other long term (current) drug therapy; Z82.49 Family history of ischemic heart disease and other diseases of the circulatory system; Z83.3 Family history of diabetes mellitus; Z92.3 Personal history of irradiation; Z96.652 Presence of left artificial knee joint; Z92.21 Personal history of antineoplastic chemotherapy; Z87.19 Personal history of other diseases of the digestive system; Z88.0 Allergy status to penicillin; Z91.041 Radiographic dye allergy status
CPT/HCPCS: 36415; 51798; 71045; 74176; 80048; 80053; 81001; 83605; 83690; 85025; 85027; 85610; 85730; 86850; 86900; 86901; 96374; 96375; 99285

== ENCOUNTER 2023-04-24 13:53 | Emergency (ER) | payer MEDICARE, BC ==
[2023-04-24] MEDS ORDERED: SODIUM CHLORIDE 0.9% 1,000 ML IV STA (14:01)
[2023-04-24 14:17] LABS: Basophils # (A) 0.1 k/uL (0-0.2); Basophils % (A) 1 %; Eosinophils # (A) 0.5 k/uL (0-0.7); Eosinophils % (A) 6 %; HCT 39.7 % (39.0-53.0); HGB 13.4 gm/dL (13.0-17.5); Lymphocytes # (A) 2.8 k/uL (1.0-4.8); Lymphocytes % (A) 30 %; MCH 30.7 pg (25.0-35.0); MCHC 33.7 g/dL (31.0-37.0); MCV 90.9 fL (80.0-100.0); Mean Platelet Volume 8.2; Monocytes # (A) 0.4 k/uL (0-1.0); Monocytes % (A) 5 %; Neutrophils # (A) 5.1 k/uL (1.3-7.7); Neutrophils % (A) 56 %; Platelet Count 238 k/uL (150-450); RBC 4.37 m/uL (4.30-5.90); WBC 9.1 k/uL (3.8-10.6)
[2023-04-24 14:31] LABS: INR 2.1 (<1.2); Partial Thromboplastin Time 27.1 sec (22.0-30.0); Prothrombin Time 21.4 sec (10.0-12.5)
--- NOTE | 2023-04-24 14:40 | ED ---
Syncope HPI - General Chief Complaint: Syncope Stated Complaint: Syncope Time Seen by Provider: 04/24/23 13:58 Source: patient, EMS, RN notes reviewed, old records reviewed Mode of arrival: EMS Limitations: no limitations - History of Present Illness Initial Comments: This is a 87-year-old male who is presented today from home for near syncopal syncopal event and weakness. Patient has recent hospital admission for small bowel obstruction. No prior significant history of syncope. Patient denies current chest pain headache abdominal pain. Patient has no significant history of syncope and surrounding the syncopal event patient was diaphoretic with recent hospital admission for small bowel obstruction discharged patient currently is not having abdominal pain not having chest pain not having shortness of breath. He was very weak today and he is having persistent weakness today patient has not had a syncopal episode in the past. MD Complaint: loss of consciousness, felt faint, almost passed out -: hour(s) Prodromal Symptoms: none -: second(s) Witnessed: yes - by bystander, yes - by EMS Injuries Sustained Associated with Event: None - Related Data Home Medications Medication Instructions Recorded Confirmed Atorvastatin [Lipitor] 20 mg PO HS 05/13/20 04/24/23 Furosemide [Lasix] 40 mg PO DAILY 12/07/20 04/24/23 Warfarin [Coumadin] 2.5 mg PO [id number] 12/07/20 04/24/23 Warfarin [Coumadin] 3.75 mg PO SUTH 12/07/20 04/24/23 glipiZIDE [Glucotrol] 10 mg PO AC-BID 12/07/20 04/24/23 Ergocalciferol [Vitamin D2 (1250 1,250 mcg PO QMONTHLY 01/26/23 04/24/23 Mcg = 19237 Iu)] Levothyroxine Sodium [Synthroid] 100 mcg PO DAILY 01/26/23 04/24/23 Losartan Potassium 25 mg PO DAILY 01/26/23 04/24/23 Metoprolol Tartrate [Lopressor] 25 mg PO DAILY 01/26/23 04/24/23 amLODIPine [Norvasc] 10 mg PO DAILY 01/26/23 04/24/23 calcitrioL [Calcitriol] 0.5 mcg PO DIRECTED 01/26/23 04/24/23 Ferrous Sulfate Er 324mg 324 mg PO Q2D 04/24/23 04/24/23 Lidocaine Viscous 2% [Xylocaine 5 ml PO Q1H PRN 04/24/23 04/24/23 Viscous] Allergies Allergy/AdvReac Type Severity Reaction Status Date / Time Iodinated Contrast Media Allergy Mild Rash/Hives Verified 04/24/23 16:16 [Iodinated Contrast Media - IV Dye] Penicillins Allergy Unknown Verified 04/24/23 16:16 Review of Systems ROS Statement: Those systems with pertinent positive or pertinent negative responses have been documented in the HPI. ROS Other: All systems not noted in ROS Statement are negative. 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 , patient on warfarin for cardiovascular disease History of Any Multi-Drug Resistant Organisms: None Reported Past Surgical History: Hernia Repair, Joint Replacement Additional Past Surgical History / Comment(s): Lap bebeto fundoplasty, TUMOR R IGHT LUNG REMOVED, RIGHT CAROTID ENDARTERECTOMY, gastric surgery for rupture (pt does not know what ruptured), EGD, colonoscopy, CATARACTS., trk 04/07/17, left knee replacement Past Anesthesia/Blood Transfusion Reactions: No Reported Reaction, Motion Sickness Past Psychological History: No Psychological Hx Reported Smoking Status: Former smoker Past Alcohol Use History: Rare Past Drug Use History: None Reported - Past Family History Brother(s) Family Medical History: Diabetes Mellitus Sister(s) Family Medical History: Cancer Mother Family Medical History: Congestive Heart Failure (CHF), Coronary Artery Disease (CAD) Additional Family Medical History / Comment(s): Mother of CHF at age 83 yrs. Father Family Medical History: Myocardial Infarction (NV) Additional Family Medical History / Comment(s): Father of NV at age 60 yrs General Exam General appearance: alert, in no apparent distress, anxious Head exam: Present: atraumatic, normocephalic, normal inspection Eye exam: Present: normal appearance, PERRL, EOMI. Absent: scleral icterus, conjunctival injection, periorbital swelling ENT exam: Present: normal exam, mucous membranes moist Neck exam: Present: normal inspection. Absent: tenderness, meningismus, lym phadenopathy Respiratory exam: Present: normal lung sounds bilaterally. Absent: respiratory distress, wheezes, rales, rhonchi, stridor Cardiovascular Exam: Present: regular rate, normal rhythm, normal heart sounds. Absent: systolic murmur, diastolic murmur, rubs, gallop, clicks GI/Abdominal exam: Present: soft, normal bowel sounds. Absent: distended, tenderness, guarding, rebound, rigid Extremities exam: Present: normal inspection, full ROM, normal capillary refill. Absent: tenderness, pedal edema, joint swelling, calf tenderness Back exam: Present: normal inspection Neurological exam: Present: alert, oriented X3, CN II-XII intact Psychiatric exam: Present: normal affect, normal mood Skin exam: Present: warm, dry, intact, normal color. Absent: rash Course Vital Signs 04/24/23 04/24/23 04/24/23 13:54 14:08 14:09 Temperature 97.6 F Pulse Rate 65 Respiratory 17 Rate Blood Pressure 141/50 Blood Pressure [Right Arm Sitting] Blood Pressure [Right Arm Standing] Blood Pressure [Right Arm Supine] O2 Sat by Pulse 96 87 L 95 Oximetry 04/24/23 04/24/23 04/24/23 15:01 15:41 16:01 Temperature Pulse Rate 56 L 62 Respiratory 17 17 Rate Blood Pressure 131/6 135/62 Blood Pressure 132/115 [Right Arm Sitting] Blood Pressure 146/67 [Right Arm Standing] Blood Pressure 145/63 [Right Arm Supine] O2 Sat by Pulse 100 100 Oximetry 04/24/23 17:35 Temperature 97.3 F L Pulse Rate 68 Respiratory 18 Rate Blood Pressure 155/72 Blood Pressure [Right Arm Sitting] Blood Pressure [Right Arm Standing] Blood Pressure [Right Arm Supine] O2 Sat by Pulse 100 Oximetry - Reevaluation(s) Reevaluation #1: 04/24/23 15:43 Medical record is reviewed Reevaluation #2: Patient has no recurrent syncopal event here in the ER Patient does not want to stay for further evaluation regarding cause of syncope Reevaluation #3: Patient informed results questions have been answered Reevaluation #4: 04/24/23 15:44 Was pt. sent in by a medical professional or institution (, PA, CARPENTER/LABOR, urgent care, hospital, or longterm...) When possible be specific @ -no Did you speak to anyone other than the patient for history (EMS, parent, family, police, friend...)? What history was obtained from this source @ -no Did you review nursing and triage notes (agree or disagree)? Why? @ -agree Are old charts reviewed (outside hosp., previous admission, EMS record, old EKG, old radiological studies, urgent care reports/EKG's, longterm records)? Report findings @ -yes Differential Diagnosis (chest pain, altered mental status, abdominal pain women, abdominal pain men, vaginal bleeding, weakness, fever, dyspnea, syncope, headache, dizziness, GI bleed, back pain, seizure, CVA, palpatations, mental health, musculoskeletal)? @ -prior EKG interpreted by me (3pts min.). @ -yes X-rays interpreted by me (1pt min.). @ -no CT interpreted by me (1pt min.). @ -no U/S interpreted by me (1pt. min.). @ -no What testing was considered but not performed or refused? (CT, X-rays, U/S, labs)? Why? @ -none What meds were considered but not given or refused? Why? @ -none Did you discuss the management of the patient with other professionals (professionals i.e. , PA, CARPENTER/LABOR, lab, RT, psych nurse, social psychologist, rfid technician, teacher, chairman & chief executive officer, case management manager)? Give summary @ -no Was smoking cessation discussed for >3mins.? @ -no Was critical care preformed (if so, how long)? @ -yes31 Were there social determinants of health that impacted care today? How? (Homelessness, low income, unemployed, alcoholism, drug addiction, transportation, low edu. Level, literacy, decrease access to med. care, fdc, rehab)? @ -none Was there de-escalation of care discussed even if they declined (Discuss DNR or withdrawal of care, Hospice)? DNR status @ -no What co-morbidities impacted this encounter? (DM, HTN, Smoking, COPD, CAD, Cancer, CVA, ARF, Chemo, Hep., AIDS, mental health diagnosis, sleep apnea, morbid obesity)? @ -none Was patient admitted / discharged? Hospital course, mention meds given and route, prescriptions, significant lab abnormalities, going to OR and other pertinent info. @ - 87 male to the emergency department for evaluation of significant severe weakness, patient had a syncopal event with position change. Related to orthostasis. Patient is of extreme of age encouraged observation for syncopal event but he refuses, patient will be discharged home Discharge Undiagnosed new problem with uncertain prognosis? @ -no Drug Therapy requiring intensive monitoring for toxicity (Heparin, Nitro, Insulin, Cardizem)? @ -no Were any procedures done? @ -no Diagnosis/symptom? @ -Syncope Acute, or Chronic, or Acute on Chronic? @ -Acute Uncomplicated (without systemic symptoms) or Complicated (systemic symptoms)? @ -Complicated Side effects of treatment? @ -no Exacerbation, Progression, or Severe Exacerbation? @ -exacerbation Poses a threat to life or bodily function? How? (Chest pain, USA, NV, pneumonia, PE, COPD, DKA, ARF, appy, cholecystitis, CVA, Diverticulitis, Homicidal, Suicidal, threat to staff... and all critical care pts) @ -yes as with any patient who undergoes syncope Reevaluation #5: 04/24/23 15:44 Differential Syncope: Valvular disease, hypertrophic cardiomyopathy, pulmonary embolism, tamponade, tachycardia, bradycardia, NV, hypovolemia, hemorrhage, dissection, anemia, intracranial hemorrhage, seizure, hypoglycemia, carbon monoxide poisoning, this is not meant to be an all-inclusive list. EKG Findings - EKG Comments: EKG Findings:: EKG is A. fib 59 QRS 121 QTc 465 - EKG Results: EKG: interpreted by WENDY Medical Decision Making - Medical Decision Making 87 male to the emergency department for evaluation of significant severe weakness, patient had a syncopal event with position change. Related to orthostasis. Patient is of extreme of age encouraged observation for syncopal event but he refuses, patient will be discharged home - Lab Data Result diagrams: 04/24/23 14:04 04/24/23 14:04 Lab Results 04/24/23 04/24/23 04/24/23 Range/Units 14:04 14:04 14:04 WBC 9.1 (3.8-10.6) k/uL RBC 4.37 (4.30-5.90) m/uL Hgb 13.4 (13.0-17.5) gm/dL Hct 39.7 (39.0-53.0) % MCV 90.9 (80.0-100.0) fL MCH 30.7 (25.0-35.0) pg MCHC 33.7 (31.0-37.0) g/dL RDW 14.0 (11.5-15.5) % Plt Count 238 (150-450) k/uL MPV 8.2 Neutrophils % 56 % Lymphocytes % 30 % Monocytes % 5 % Eosinophils % 6 % Basophils % 1 % Neutrophils # 5.1 (1.3-7.7) k/uL Lymphocytes # 2.8 (1.0-4.8) k/uL Monocytes # 0.4 (0-1.0) k/uL Eosinophils # 0.5 (0-0.7) k/uL Basophils # 0.1 (0-0.2) k/uL PT 21.4 H (10.0-12.5) sec INR 2.1 H (<1.2) APTT 27.1 (22.0-30.0) sec D-Dimer 0.61 H (<0.60) mg/L FEU Sodium 138 (137-145) mmol/L Potassium 3.9 (3.5-5.1) mmol/L Chloride 103 (98-107) mmol/L Carbon Dioxide 21 L (22-30) mmol/L Anion Gap 14 mmol/L BUN 67 H (9-20) mg/dL Creatinine 2.92 H (0.66-1.25) mg/dL Est GFR (CKD-EPI)AfAm 22 (>60 ml/min/1.73 sqM) Est GFR (CKD-EPI)NonAf 19 (>60 ml/min/1.73 sqM) Glucose 264 H (74-99) mg/dL Calcium 8.7 (8.4-10.2) mg/dL Phosphorus 3.6 (2.5-4.5) mg/dL Magnesium 2.1 (1.6-2.3) mg/dL Total Bilirubin 0.7 (0.2-1.3) mg/dL AST 19 (17-59) U/L ALT 17 (4-49) U/L Alkaline Phosphatase 72 (38-126) U/L Troponin I (0.000-0.034) ng/mL Total Protein 6.4 (6.3-8.2) g/dL Albumin 3.3 L (3.5-5.0) g/dL 12/29/23 Range/Units 14:04 WBC (3.8-10.6) k/uL RBC (4.30-5.90) m/uL Hgb (13.0-17.5) gm/dL Hct (39.0-53.0) % MCV (80.0-100.0) fL MCH (25.0-35.0) pg MCHC (31.0-37.0) g/dL RDW (11.5-15.5) % Plt Count (150-450) k/uL MPV Neutrophils % % Lymphocytes % % Monocytes % % Eosinophils % % Basophils % % Neutrophils # (1.3-7.7) k/uL Lymphocytes # (1.0-4.8) k/uL Monocytes # (0-1.0) k/uL Eosinophils # (0-0.7) k/uL Basophils # (0-0.2) k/uL PT (10.0-12.5) sec INR (<1.2) APTT (22.0-30.0) sec D-Dimer (<0.60) mg/L FEU Sodium (137-145) mmol/L Potassium (3.5-5.1) mmol/L Chloride (98-107) mmol/L Carbon Dioxide (22-30) mmol/L Anion Gap mmol/L BUN (9-20) mg/dL Creatinine (0.66-1.25) mg/dL Est GFR (CKD-EPI)AfAm (>60 ml/min/1.73 sqM) Est GFR (CKD-EPI)NonAf (>60 ml/min/1.73 sqM) Glucose (74-99) mg/dL Calcium (8.4-10.2) mg/dL Phosphorus (2.5-4.5) mg/dL Magnesium (1.6-2.3) mg/dL Total Bilirubin (0.2-1.3) mg/dL AST (17-59) U/L ALT (4-49) U/L Alkaline Phosphatase (38-126) U/L Troponin I <0.012 (0.000-0.034) ng/mL Total Protein (6.3-8.2) g/dL Albumin (3.5-5.0) g/dL Critical Care Time Critical Care Time: Yes Total Critical Care Time: 31 Disposition Clinical Impression: Syncope due to orthostatic hypotension, Vasovagal syncope, Dehydration, Syncope Disposition: HOME SELF-CARE Condition: Fair Instructions (If sedation given, give patient instructions): Syncope (ED) Is patient prescribed a controlled substance at d/c from ED?: No Referrals: Michael Oneil MD [Primary Care Provider] - 1-2 days Time of Disposition: 17:00
[2023-04-24 14:49] LABS: ALT 17 U/L (4-49); AST 19 U/L (17-59); African American GFR (CKD) 22 (>60 ml/min/1.73 sqM); Albumin 3.3 g/dL (3.5-5.0); Alkaline Phosphatase 72 U/L (38-126); Anion Gap 14 mmol/L; Blood Urea Nitrogen 67 mg/dL (9-20); Calcium 8.7 mg/dL (8.4-10.2); Carbon Dioxide 21 mmol/L (22-30); Chloride 103 mmol/L (98-107); Glucose 264 mg/dL (74-99); Magnesium 2.1 mg/dL (1.6-2.3); Non-African American GFR(CKD) 19 (>60 ml/min/1.73 sqM); Phosphorus 3.6 mg/dL (2.5-4.5); Potassium 3.9 mmol/L (3.5-5.1); Sodium 138 mmol/L (137-145); Total Bilirubin 0.7 mg/dL (0.2-1.3); Total Protein 6.4 g/dL (6.3-8.2)
[2023-04-24 17:50] VITALS: BP 155/72; PULSE 68; RESP 18; TEMP 97.3
== END 2023-04-24 17:35 | disposition home or self-care (01) ==
LOC: EC 13:53
DX: I95.1 Orthostatic hypotension (principal); E86.0 Dehydration; E11.51 Type 2 diabetes mellitus with diabetic peripheral angiopathy without gangrene; I10 Essential (primary) hypertension; E78.5 Hyperlipidemia, unspecified; M19.90 Unspecified osteoarthritis, unspecified site; E07.9 Disorder of thyroid, unspecified; Z79.84 Long term (current) use of oral hypoglycemic drugs; Z79.890 Hormone replacement therapy; Z79.899 Other long term (current) drug therapy; Z87.891 Personal history of nicotine dependence; Z88.0 Allergy status to penicillin; Z91.041 Radiographic dye allergy status
CPT/HCPCS: 36415; 80053; 83735; 84100; 84484; 85025; 85379; 85610; 85730; 93005; 96360; 99291

== ENCOUNTER → 2024-11-25 | Outpatient (CLI) | payer MEDICARE, BC ==
--- NOTE | 2024-11-25 08:32 | US ---
EXAMINATION TYPE: US abdomen complete DATE OF EXAM: 11/25/2024 COMPARISON: CT 01/27/2023 CLINICAL INDICATION: Male, 89 years old with history of R10.11 RUQ PAIN; RLQ pain when laying flat; P atient states no cholecystectomy - previous imaging shows cholecystectomy TECHNIQUE: Grayscale and color Doppler imaging of the abdomen was performed. FINDINGS: EXAM MEASUREMENTS: Liver Length: 13.3 cm Gallbladder Wall: Surgically absent cm CBD: Unable to insoniate cm, color Doppler imaging was utilized to isolate the common bile duct for measurement. Spleen: 9.6 cm Right Kidney: 9.6 x 6.1 x 4.6 cm Left Kidney: 10.4 x 5.7 x 4.7 cm TRACK PRODUCTION ENGINEER NOTES: Difficult exam due to overlying bowel gas, patient body habitus, and patients inab ility to lay flat for exam. Pancreas: Tail obscured by overlying bowel gas Liver: Obscured by overlying bowel gas; visualized portions appear WNL Gallbladder: Surgically absent Evidence for sonographic Garces's sign: No CBD: Obscured by overlying bowel gas Spleen: Obscured by overlying bowel gas visualized portions appear WNL Right Kidney: Atrophic and limited visualization Left Kidney: Atrophic and limited visualization Upper IVC: wnl Abd Aorta: Obscured by overlying bowel gas The visualized portions of the pancreas unremarkable. The visualized portions of the liver are unrema rkable. Gallbladder surgically absent. Common bile duct system by overlying bowel gas. Visualized por tions when unremarkable. Both kidneys appear atrophic and limited visualization. No overt hydronephro sis or shadowing calculus. The upper IVC is within normal limits. The abdominal aorta is obscured by overlying bowel gas. IMPRESSION: Limited examination due to patient's body habitus and overlying bowel gas. 1. No gross evidence for acute process. 2. Gallbladder is surgically absent corresponding to prior CT. 3. Atrophy of both kidneys as seen on prior CT. [facility], , 11/25/2024 8:29 AM
== END | disposition home or self-care (01) ==
LOC: RADUSWWP 07:50
PROVIDERS: ATTEND Family Medicine
DX: N26.1 Atrophy of kidney (terminal) (principal); Z80.49 Family history of malignant neoplasm of other genital organs
CPT/HCPCS: 76700